=== PATIENT | female | born 1960 | race Caucasian/White ===

== ENCOUNTER 2019-07-26 13:07 | Outpatient (CLI) | payer OTHER, SELFPAY ==
--- NOTE | ~2019-07-26 | MM_ITS ---
EXAMINATION: MM screen george LT diag george RT HISTORY: Screening left mammogram and diagnostic right mammogram, history of right breast cancer TECHNIQUE: Craniocaudal and mediolateral oblique 3-D tomosynthesis images of the breasts were perform ed and synthetic 2-D images were generated. Mediolateral view of the right breast was also obtained. CAD analysis was submitted and interpreted. COMPARISON: 07/04/2017, 06/18/2017, 02/10/2016, 01/23/2016, 01/16/2016 BREAST PARENCHYMAL COMPOSITION: There are scattered areas of fibroglandular density. FINDINGS: Right breast: There are changes of interval lumpectomy in the right breast. No suspicious mass, calci fication, or architectural distortion are identified. Left breast: There is architectural distortion and a possible mass in the middle third of the inner b reast 7.5 cm from the nipple at the site of previously biopsied calcifications. IMPRESSION: 1. Lumpectomy changes of the right breast without suspicious findings. Routine follow-up is recommend ed. 2. Architectural distortion and possible mass of the left breast. Additional mammographic views and p ossible left breast ultrasound are recommended. BI-RADS Category 0: Incomplete: Needs additional imaging evaluation. Reviewed, dictated and finalized at location A. DREN'S SERVICE SUPERVISOR IMPRESSION: 1. Lumpectomy changes of the right breast without suspicious findings. Routine follow-up is recommended. 2. Architectural distortion and possible mass of the left breast. Additional ma mmographic views and possible left breast ultrasound are recommended. BI-RADS Category 0: Incomplete: Needs additional imaging evaluation.
== END 2019-07-26 13:08 | disposition home or self-care (01) ==
PROVIDERS: PCP Family Medicine; Visit Provider Internal Medicine Hematology & Oncology
DX: C50.211 Malignant neoplasm of upper-inner quadrant of right female breast (principal); Z17.0 Estrogen receptor positive status [ER+]; R92.8 Other abnormal and inconclusive findings on diagnostic imaging of breast
CPT/HCPCS: 77065; 77067

== ENCOUNTER 2019-07-31 08:33 | Outpatient (CLI) | payer OTHER, SELFPAY ==
[2019-07-31 09:02] LABS: Basophils Absolute Auto 0.1 K/mm3 (0.0-0.1); Basophils Percent Auto 1.5 % (0.2-1.2); Eosinophils Absolute Auto 0.2 K/mm3 (0-0.3); Hemoglobin 13.5 g/dL (12.0-15.0); Immature Granulocyte Absolute 0.01 K/mm3 (0.00-0.031); Immature Granulocyte Percent A 0.2 % (0-0.5); Lymphocytes Absolute Auto 1.12 K/mm3 (0.9-3.2); Lymphocytes Percent Auto 24.5 % (18.3-44.2); Mean Corpuscular HGB Conc 35.5 g/dl (32-36); Mean Corpuscular Hemoglobin 29.9 pg (26-34); Mean Corpuscular Volume 84.3 fl (80-100); Mean Platelet Volume 10.2 fl (7.4-10.4); Monocytes Absolute Auto 0.5 K/mm3 (0.1-0.6); Monocytes Percent Auto 10.5 % (2.6-8.5); Neutrophils Absolute Auto 2.7 K/mm3 (1.3-6.7); Neutrophils Percent Auto 58.3 % (45.5-73.1); Platelet Count Result 235 k/mm3 (150-375); Red Blood Count 4.51 M/mm3 (4.2-5.4); Red Cell Distribution Width 11.8 % (11.5-14.5); White Blood Count 4.6 K/mm3 (4.5-10.0)
[2019-07-31 09:04] LABS: Blood Urea Nitrogen 17 mg/dL (8-26); Carbon Dioxide 22 mmol/L (22-30); Chloride 107 mmol/L (98-109); Estimated Glomerular Filt Rate > 60; Glucose 170 mg/dL (70-105); Potassium 4.3 mmol/L (3.5-4.9); Sodium 141 mmol/L (138-146)
[2019-07-31 12:14] LABS: Alanine Aminotransferase 53 U/L (4-35); Albumin Level 4.3 g/dL (3.5-5.1); Alkaline Phosphatase 56 U/L (38-126); Aspartate Amino Transferase 34 U/L (14-36); Bilirubin,Total 0.5 mg/dL (0.2-1.3); Blood Urea Nitrogen 18 mg/dL (7-17); Calcium 9.6 mg/dL (8.4-10.2); Carbon Dioxide 22 mmol/L (22-30); Chloride 104 mmol/L (98-107); Estimated Glomerular Filt Rate > 60; Glucose 164 mg/dL (65-105); Potassium 4.6 mmol/L (3.4-5.0); Sodium 140 mmol/L (137-145)
[2019-08-03 05:25] LABS: CA 27.29 18 U/mL (<38)
== END 2019-07-31 08:34 | disposition home or self-care (01) ==
LOC: ANHLAB 08:39
PROVIDERS: PCP Family Medicine; Visit Provider Internal Medicine Hematology & Oncology
DX: C50.211 Malignant neoplasm of upper-inner quadrant of right female breast (principal); Z17.0 Estrogen receptor positive status [ER+]
CPT/HCPCS: 36415; 80048; 80053; 85025; 86300

== ENCOUNTER 2019-08-02 14:26 | Outpatient (CLI) | payer OTHER, SELFPAY ==
--- NOTE | ~2019-08-02 | MMUS_ITS ---
EXAMINATION: MM diagnostic mammo unilat LT, US breast LT limited HISTORY: Architectural distortion and possible mass in middle third of inner left breast 7.5 cm from nipple at site of previously biopsied calcifications, reported on 07/26/2019 bilateral digital screenin g mammogram examination TECHNIQUE: Additional 3-D tomosynthesis images of the left breast were performed and synthetic 2-D im ages were generated. CAD analysis was submitted and interpreted. High resolution targeted left breast ultrasound was performed. COMPARISON: None FINDINGS: MAMMOGRAPHIC FINDINGS: There is a focal small spiculated opacity at the upper inner quadrant of the left breast at mid depth at the site of a biopsy marker. Sonographic correlation was performed. ULTRASOUND: At 10:00 6 cm from the nipple at the area of mammographic finding is an ill-defined hypoechoic irregu lar area with posterior shadowing, with internal vascularity. This area measures up to 8.3 x 11 mm x 11 mm dimension. This is suspicious for carcinoma of the breast. Ultrasound-guided biopsy is recommen ded. IMPRESSION: 1. 11 mm irregular hypoechoic shadowing mass at 10:00 6 cm from the nipple, suspicious for malignancy 2. Ultrasound-guided biopsy of 10:00 lesion 6 cm from nipple is recommended. BI-RADS category 4, suspicious findings. Dr. Cai telephoned the findings and ultrasound guided biopsy recommendation to Ronda Smith on 08/02/19 20 at 1408 hours. Reviewed, dictated and finalized at location A. RAPHY FACULTY MEMBER IMPRESSION: 1. 11 mm irregular hypoechoic shadowing mass at 10:00 6 cm from the nipple, diego picious for malignancy 2. Ultrasound-guided biopsy of 10:00 lesion 6 cm from nipple is recommended. BI-RADS category 4, suspicious findings. Dr. Cai telephoned the findings and ultrasound guided biopsy recommendation to Ronda Smith on 08/02/2019 at 1408 hours.
== END 2019-08-02 14:27 | disposition home or self-care (01) ==
PROVIDERS: Visit Provider Internal Medicine Hematology & Oncology
DX: R92.8 Other abnormal and inconclusive findings on diagnostic imaging of breast (principal)
CPT/HCPCS: 76642; 77065

== ENCOUNTER 2019-09-25 13:47 | Inpatient (IN) | payer OTHER, SELFPAY ==
--- NOTE | ~2019-09-25 | XR_ITS ---
EXAMINATION: XR chest 1V portable EXAM DATE: 09/25/2019 14:49 INDICATION: Cough and shortness of breath. TECHNIQUE: Portable AP frontal chest x-ray was obtained. Comparison is made to prior examination from 01/05/2018. FINDINGS: Some chronic left lower lobe opacities which were present on prior study probably atelectas is or scarring. Interval development of right basilar nonspecific atelectasis or infection. Clinical correlation. Cardiomediastinal silhouette is normal. There is no pneumothorax suspected. Possible sma ll left pleural effusion. There are no osseous abnormalities identified. IMPRESSION: 1. Development of right basilar ill-defined atelectasis or infection. 2. Persistent retrocardiac opacity. 3. Possible small left pleural effusion. Reviewed, dictated and finalized at location B.
--- NOTE | ~2019-09-25 | XR_ITS ---
EXAMINATION: XR chest 1V portable DATE: 09/30/2019 06:34 INDICATION: COVID-19 pneumonia. TECHNIQUE: A single frontal view of the chest was obtained. COMPARISON: Chest single view 09/28/2019, chest CT 09/27/2019 FINDINGS: The lung volumes are small. There are airspace opacities in all lung zones with a basilar p redominance. No pleural effusion or pneumothorax. The heart size is normal. There are prominent parac ardial fat pads. IMPRESSION: 1. Small lung volumes with diffuse lung disease with a basilar predominance with interval improvement , likely a combination of pneumonia and atelectasis. Reviewed, dictated and finalized at location A. IMPRESSION: 1. Small lung volumes with diffuse lung disease with a basilar predominance wit h interval improvement, likely a combination of pneumonia and atelectasis.
--- NOTE | ~2019-09-25 | XR_ITS ---
EXAMINATION: XR chest 1V portable DATE: 09/28/2019 06:31 INDICATION: Multifocal pneumonia. TECHNIQUE: A single frontal view of the chest was obtained. COMPARISON: Chest single view 09/25/2019 FINDINGS: There are airspace opacities in the mid and lower lung zones. No pleural effusion or pneumo thorax. There is a prominent left paracardial fat pad. The heart size is normal. IMPRESSION: 1. Worsened airspace opacities in the mid and lower lung zones, consistent with pneumonia. Reviewed, dictated and finalized at location A.
--- NOTE | ~2019-09-25 | CT_ITS ---
EXAMINATION: CTA chest PE protocol DATE: 09/27/2019 08:17 INDICATION: Acute respiratory failure. Pneumonia. Sepsis. TECHNIQUE: Computed tomography angiography (CTA) of the chest was performed with 100 mL Omnipaque-350 intravenous contrast timed to evaluate the pulmonary arteries. Coronal maximum intensity projection 3D-reconstructions were created by the technologist. Automated exposure control and iterative reconst ruction technique were employed. The dose-length product was 363.55 mGy-cm. COMPARISON: Chest CT 12/25/2018 FINDINGS: The lung volumes are small. There are patchy groundglass opacities involving all lobes. The re are patchy airspace opacities in the inferior lungs. There is atelectasis at the lung bases bilate rally. No pleural effusion. There are nodules in the thyroid measuring up to 13 mm, likely not clinic ally significant. The heart size is normal. There is mild mediastinal and bilateral hilar lymphadenop athy. There is no pulmonary embolus. There is diffuse hepatic steatosis. There is a small sliding hia tino hernia. There is mild chronic anterior wedging of multiple thoracic vertebral bodies. There is mo derate thoracic spondylosis. IMPRESSION: 1. No pulmonary embolus. 2. Multifocal lung disease, likely atypical pneumonia such as COVID-19. 3. Mild mediastinal and bilateral hilar lymphadenopathy, likely reactive. 4. Small sliding hiatal hernia. Reviewed, dictated and finalized at location A.
--- NOTE | 2019-09-25 13:59 | ED.SOB ---
HPI - SOB/Dyspnea General Chief Complaint: Shortness of Breath/Dyspnea <JAKUB Medellin Last Filed: 09/25/19 15:34> Stated Complaint: cough, fever, sob <JAKUB Medellin Last Filed: 09/25/19 15:34> Time Seen by Provider: 09/25/19 13:56 <JAKUB Medellin Last Filed: 09/25/19 15:34> Source: patient <JAKUB Medellin Last Filed: 09/25/19 15:34> Mode of arrival: ambulatory <JAKUB Medellin Last Filed: 09/25/19 15:34> Limitations: no limitations <JAKUB Medellin Last Filed: 09/25/19 15:34> History of Present Illness HPI Narrative: Patient is a 59 y/o female who presents to the ED with c/o increasing SOB that started Tuesday (3 days ago). Pt reports a fever, dry cough, nausea, diarrhea, KOENIG, body aches, and a sore throat. Pt denies having blood in her stool or CP. She states that she was exposed to a coworker that she was in close contact with, who was tested positive for COVID-19. She has been monitoring her O2 Sat and it has been staying in the high 80's and low 90's at home. Pt has a history of breast CA, HTN, HLD, and DM. <JAKUB Medellin Last Filed: 09/25/19 15:34> MD elicited complaint: shortness of breath <JAKUB Medellin Last Filed: 09/25/19 15:34> Onset (ago): day(s) (3) <JAKUB Medellin Last Filed: 09/25/19 15:34> Context: other (exposed to coworker who tested positive for COVID-19) <JAKUB Medellin Last Filed: 09/25/19 15:34> Timing: progressively worsening <JAKUB Medellin Last Filed: 09/25/19 15:34> Associated symptoms: fever, cough and other (body aches, nausea, KOENIG, sore throat, diarrhea) <JAKUB Medellin Last Filed: 09/25/19 15:34> Related Data Home Medications: Home Medications Medication Instructions Recorded Confirmed fenofibrate nanocrystallized 48 mg PO HS 04/10/19 04/10/19 [Tricor] insulin detemir U-100 [Levemir 75 unit SUBCUT HS 04/10/19 04/10/19 U-100 Insulin] liraglutide [Victoza 2-Rafa] 1.2 mg SUBCUT DAILY 04/10/19 04/10/19 multivitamin 1 tablet PO DAILY 04/10/19 04/10/19 naproxen 500 mg PO BID 04/10/19 04/10/19 anastrozole 1 mg PO DAILY 04/27/19 04/27/19 alprazolam 09/25/19 atorvastatin 09/25/19 insulin aspart U-100 [Novolog unit SUBCUT 09/25/19 Flexpen U-100 Insulin] insulin detemir U-100 [Levemir unit SUBCUT 09/25/19 FlexTouch U-100 Insuln] liraglutide [Victoza 2-Rafa] mg SUBCUT 09/25/19 losartan 09/25/19 <Jo Cronin PA-C - Last Filed: 09/25/19 15:34> Allergies/Adverse Reactions: Allergies Allergy/AdvReac Type Severity Reaction Status Date / Time gold Au 198 Allergy Severe RASH,EYE Verified 09/25/19 13:58 SWELLING pioglitazone Allergy Unknown Unknown Verified 09/25/19 13:58 codeine AdvReac Intermediate Nausea Verified 09/25/19 13:58 <Jo Cronin PA-C - Last Filed: 09/25/19 15:34> Review of Systems Review of Systems: All systems reviewed & are unremarkable except as noted in HPI and below <JAKUB Medellin Last Filed: 09/25/19 15:34> Constitutional: Constitutional: Reports body ache(s) and Reports fever(s) <JAKUB Medellin Last Filed: 09/25/19 15:34> ENT: Reports sore throat <JAKUB Medellin Last Filed: 09/25/19 15:34> Cardiovascular: Cardiovascular: Denies chest pain <Jo Cronin PA-C - Last Filed: 09/25/19 15:34> Respiratory: Respiratory: Reports cough (dry) and Reports dyspnea <Jo Cronin PA-C - Last Filed: 09/25/19 15:34> Gastrointestinal: Gastrointestinal: Denies hematochezia, Reports diarrhea and Reports nausea <Jo Cronin PA-C - Last Filed: 09/25/19 15:34> Neurologic: Reports headache(s) <Jo Cronin PA-C - Last Filed: 09/25/19 15:34> [facility] Past Medical History Medical History: Medical History (Updated 09/25/19 @ 15:34 by Jo Cronin PA-C) Breast cancer, right Diverticulosis of intestine, part unspe
[2019-09-25 14:09] VITALS: BP 115/54; PULSE 107; PULSE 99; RESP 22; TEMP 37.7; O2SAT 91; O2SAT 96
--- NOTE | 2019-09-25 14:16 | ECG_ITS ---
Measurements Intervals [place] Rate: 104 P: 161 DC: 138 QRS: 187 QRSD: 93 T: 181 QT: 337 QTc: 444 Interpretive Statements SINUS TACHYCARDIA ARM LEADS REVERSED INFERIOR INFARCT, AGE INDETERMINATE BASELINE ARTIFACT- I, III, AVL ABNORMAL ECG Electronically Signed On 09-25-2019 16:06:34 CDT by Scott Combs D.O.
[2019-09-25 14:27] LABS: Basophils Percent Auto 0.3 % (0.2-1.2); Hematocrit 38.4 % (37.0-47.0); Hemoglobin 13.2 g/dL (12.0-15.0); Immature Granulocyte Absolute 0.01 K/mm3 (0.00-0.031); Immature Granulocyte Percent A 0.3 % (0-0.5); Lymphocytes Percent Auto 17.8 % (18.3-44.2); Mean Corpuscular HGB Conc 34.4 g/dl (32-36); Mean Corpuscular Hemoglobin 29.5 pg (26-34); Mean Corpuscular Volume 85.9 fl (80-100); Mean Platelet Volume 10.6 fl (7.4-10.4); Monocytes Absolute Auto 0.3 K/mm3 (0.1-0.6); Monocytes Percent Auto 8.1 % (2.6-8.5); Neutrophils Absolute Auto 2.9 K/mm3 (1.3-6.7); Neutrophils Percent Auto 73.5 % (45.5-73.1); Platelet Count Result 157 k/mm3 (150-375); Red Blood Count 4.47 M/mm3 (4.2-5.4); White Blood Count 3.9 K/mm3 (4.5-10.0)
[2019-09-25 14:29] LABS: Alveolar/Arterial O2 Gradient 37.5 mmHg; Base Excess ABG 1.6 mEq/l (+/-2.0); Carboxyhemoglobin 0.4 % THb (0-2.0); Fractional Inspired Oxygen 21 %; HCO3 ABG 24.4 mEq/l (22.0-26.0); Methemoglobin ABG 0.2 %THb (0-1.5); Oxygen Content ABG 17.7 %vol (16.0-22.0); Oxygen Saturation ABG 95.9 % (95.0-100.0); Oxyhemoglobin 94.3 % THb (90.0-100.0); PCO2 ABG 32.8 mmHg (35.0-45.0); PO2 FiO2 Ratio Arterial Blood 3.48 %; Reduced Hemoglobin 5.1 %THb (0-5.0); Total Hemoglobin 13.3 g/dL (12.0-18.0); pH ABG 7.489 (7.350-7.450)
[2019-09-25 14:30] LABS: Device ROOM AIR; Modified Allen's Test Pass; Site Drawn RIGHT RADIAL
[2019-09-25 14:40] LABS: Lactic Acid Reflex 1.2 mmol/L (0.7-2.1)
[2019-09-25 14:41] LABS: Alanine Aminotransferase 48 U/L (4-35); Albumin Level 4.2 g/dL (3.5-5.1); Alkaline Phosphatase 56 U/L (38-126); Aspartate Amino Transferase 43 U/L (14-36); Bilirubin,Total 0.4 mg/dL (0.2-1.3); Blood Urea Nitrogen 11 mg/dL (7-17); CRP 3.9 mg/dL (<1.0); Calcium 8.9 mg/dL (8.4-10.2); Carbon Dioxide 25 mmol/L (22-30); Chloride 101 mmol/L (98-107); Estimated CRCL calculation 78 ml/min; Estimated Glomerular Filt Rate > 60; Glucose 187 mg/dL (65-105); Lactate Dehydrogenase 503 U/L (313-618); Potassium 3.8 mmol/L (3.4-5.0); Sodium 136 mmol/L (137-145)
[2019-09-25] MEDS: ONDANSETRON INJ 4 MG/2 ML VIAL IV PUSH (14:49)
[2019-09-25] MEDS: SODIUM CHLORIDE 0.9% IV 500 ML 999 ML IV CONT (14:49)
[2019-09-25 15:00] LABS: Prothrombin Time 12.8 Seconds (11.1-14.7)
[2019-09-25 15:01] LABS: Partial Thromboplastin Time 32.1 SECONDS (22.3-36.8)
[2019-09-25 15:12] LABS: NT Pro B Type Natriuretic Pept 62 PG/ML (5-100)
[2019-09-25 15:31] VITALS: BP 118/70; PULSE 86; O2SAT 97
[2019-09-25 16:33] VITALS: BMI 32.2
[2019-09-25 17:00] VITALS: BP 126/69; PULSE 92; RESP 16; O2SAT 94
--- NOTE | 2019-09-25 17:40 | PC.NURSE ---
Accidently put new pt assessment under 2000, instead of 1700.
[2019-09-25 18:01] LABS: Glucose Point of Care 214 (65-105)
[2019-09-25 20:00] VITALS: BP 122/61; PULSE 104; PULSE 115; RESP 16; TEMP 38.4; O2SAT 92; O2SAT 94
[2019-09-25 21:17] VITALS: O2SAT 92
--- NOTE | 2019-09-25 21:45 | PM.IMHP ---
H&P: HPI History of Present Illness Chief complaint: Shortness of breath and fever. Narrative: Rosemary Yun is a 59-year-old female with history of breast cancer on Arimidex, hypertension, dyslipidemia, and insulin-dependent type 2 diabetes mellitus who presented to the emergency department earlier this afternoon from home for evaluation of shortness of breath and fever. She abruptly developed flu-like symptoms on Tuesday, to include dry cough, shortness of breath, sore throat, headache, body aches, nausea, and mild diarrhea. Her symptoms have gotten worse each day, and she has been running a temperature up to 101?. She works at a local [employer], and was told not quite 1.5 weeks ago that a co-worker, whom she is in close contact with, tested positive for COVID-19. The patient has been working at home since that time, in quarantine, and just developed symptoms 3 days ago as above. The only complaint that she has at this time is of tailbone pain due to lying in bed. She denies chest pain, pleuritic pain, palpitations, vomiting, anosmia, and dysgeusia. Review of Systems Review of Systems: Narrative: Twelve systems were reviewed with pertinent positives and negatives as per HPI. She believes her diabetes is fairly well controlled, better than what it typically is, with a recent hemoglobin A1c of 8.0%. Glucose has been running a bit higher since she has been feeling ill. Denies blurry vision, polydipsia, and polyuria. Except as documented, all other systems were reviewed and are negative. 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 Status post partial mastectomy with sentinel lymph node biopsy per Dr. Mendoza. She completed radiation treatment from 02/05/2019 to 03/05/[address] Aldridge. She is now on Arimidex and follows with Dr. Garza. Diverticulosis of intestine, part unspecified, without perforation or abscess with bleeding Dyslipidemia Essential (primary) hypertension History of branchial cleft cyst Long-term current use of insulin for diabetes mellitus Hemoglobin A1c was 8.0% in June 2019. XAVIER on CPAP Osteopenia Primary osteoarthritis, right hand Surgical History Surgical History (Updated 09/25/19 @ 22:53 by Dana Mariee PA-C) History of dilation and curettage History of hammertoe correction History of hysterectomy History of partial mastectomy of right breast With sentinel lymph node biopsy, negative margins. History of tonsillectomy History of tubal ligation Family History Family History Mother Hypertension Father Cerebrovascular accident Family history of malignant neoplasm Social History Social History (Updated 09/25/19 @ 22:54 by Dana Mariee PA-C) Social History: The patient is and lives with her in [place], [place]. She works at a local [employer]. She designates her , Damon, as her surrogate decision maker and she wishes to be a full code. She is a lifelong nonsmoker and denies alcohol and drug abuse. Spiritual care concerns: Yes (asad visit) Agree to blood products: Yes Meds Home Medications and Allergies Home Medications Medication Instructions Recorded Confirmed Type fenofibrate nanocrystallized 48 mg PO HS 04/10/19 09/25/19 History [Tricor] insulin detemir U-100 [Levemir 75 unit SUBCUT HS 04/10/19 09/25/19 History U-100 Insulin] liraglutide [Victoza 2-Rafa] 1.2 mg SUBCUT DAILY 04/10/19 09/25/19 History multivitamin 1 tablet PO DAILY 04/10/19 09/25/19 History naproxen 500 mg PO BID PRN 04/10/19 09/25/19 History anastrozole 1 mg PO DAILY 04/27/19 09/25/19 History losartan 25 mg tablet 50 mg PO DAILY #180 tablet 08/01/19 09/25/19 Rx atorvastatin 10 mg tablet 10 mg PO
[2019-09-25] MEDS: ANASTROZOLE (*CHEMO) 1 MG TABLET PO (23:31)
[2019-09-25] MEDS: ATORVASTATIN 10 MG TABLET PO (23:31)
[2019-09-25] MEDS: FENOFIBRATE,MICRONIZED 48 MG TABLET PO (23:31)
[2019-09-25] MEDS: ACETAMINOPHEN 325 MG TABLET 650 MG PO (23:31)
[2019-09-25] MEDS: INSULIN DETEMIR 100 UNITS/ML 75 UNITS SUB-Q (23:37)
[2019-09-26] VITALS (12 sets, daily range): BP systolic 100–116; BP diastolic 49–68; PULSE 87–101; RESP 16–20; TEMP 37.3–38.3; O2SAT 89–95
[2019-09-26 00:12] LABS: Glucose Point of Care 231 (65-105)
[2019-09-26] MEDS: ALBUTEROL SULFATE (*SP) AEROSOL 1 PUFF 4 PUFF INHALATION ×4 (02:56→21:30)
[2019-09-26 05:59] LABS: Basophils Percent Auto 0.7 % (0.2-1.2); Hematocrit 34.2 % (37.0-47.0); Hemoglobin 11.7 g/dL (12.0-15.0); Immature Granulocyte Absolute 0.02 K/mm3 (0.00-0.031); Immature Granulocyte Percent A 0.7 % (0-0.5); Lymphocytes Absolute Auto 0.76 K/mm3 (0.9-3.2); Lymphocytes Percent Auto 26.6 % (18.3-44.2); Mean Corpuscular HGB Conc 34.2 g/dl (32-36); Mean Corpuscular Hemoglobin 29.7 pg (26-34); Mean Corpuscular Volume 86.8 fl (80-100); Mean Platelet Volume 10.5 fl (7.4-10.4); Monocytes Absolute Auto 0.2 K/mm3 (0.1-0.6); Monocytes Percent Auto 7.7 % (2.6-8.5); Neutrophils Absolute Auto 1.8 K/mm3 (1.3-6.7); Neutrophils Percent Auto 64.3 % (45.5-73.1); Platelet Count Result 152 k/mm3 (150-375); Red Blood Count 3.94 M/mm3 (4.2-5.4); Red Cell Distribution Width 11.9 % (11.5-14.5); White Blood Count 2.9 K/mm3 (4.5-10.0)
[2019-09-26 06:18] LABS: Alanine Aminotransferase 41 U/L (4-35); Albumin Level 3.5 g/dL (3.5-5.1); Alkaline Phosphatase 46 U/L (38-126); Aspartate Amino Transferase 40 U/L (14-36); Bilirubin,Total 0.3 mg/dL (0.2-1.3); Blood Urea Nitrogen 11 mg/dL (7-17); Calcium 8.3 mg/dL (8.4-10.2); Carbon Dioxide 27 mmol/L (22-30); Chloride 103 mmol/L (98-107); Estimated CRCL calculation 85 ml/min; Estimated Glomerular Filt Rate > 60; Glucose 178 mg/dL (65-105); Lactate Dehydrogenase 498 U/L (313-618); Potassium 3.7 mmol/L (3.4-5.0); Sodium 136 mmol/L (137-145)
--- NOTE | 2019-09-26 07:15 | PC.NURSE ---
This patient, Rosemary Yun, was admitted to [facility] Room 325-01 on 09/24 at 1617. Patient/family oriented to hospital policies and general routines including ID bracelet, bed and alarms, visiting hours, pain management, procedures, bathroom and other care routines, personal items, smoking policy, room service/diet, and visiting hours. Valuables list has been completed. Information on how to activate the Rapid Response Team has been discussed. Patient/Family are encouraged to report perceived risks to care and to ask questions if they do not understand what they are told or what they should do.
[2019-09-26 08:07] LABS: Glucose Point of Care 157 (65-105)
[2019-09-26] MEDS: INSULIN ASPART (*BKC) 100 UNITS/ML 10 UNITS SUB-Q ×3 (08:22→17:33)
[2019-09-26] MEDS: MULTIVITAMINS THERAPEUTIC TAB (*BKC) 1 TABLET PO (08:25)
[2019-09-26] MEDS: LOSARTAN POTASSIUM 25 MG TABLET 50 MG PO (08:25)
[2019-09-26] MEDS: ACETAMINOPHEN 325 MG TABLET 650 MG PO ×3 (08:28→21:30)
[2019-09-26 12:02] LABS: Glucose Point of Care 182 (65-105)
--- NOTE | 2019-09-26 12:08 | PM.IMPN ---
Progress Note: A&P Assessment and Plan (1) Pneumonia: Qualifiers: Laterality: right Lung location: lower lobe of lung Pneumonia type: due to unspecified organism Qualified Code(s): J18.9 - Pneumonia, unspecified organism Code(s): J18.9 - Pneumonia, unspecified organism Status: Acute Assessment and Plan: Continue azithromycin and rocephin (day 2), albuterol MDI. Sputum culture if she can produce one. Pneumococcal and legionella urinary antigens pending. COVID-19 pending. (2) Acute respiratory failure with hypoxia: Code(s): J96.01 - Acute respiratory failure with hypoxia Status: Acute Assessment and Plan: Currently on 4L nasal cannula. Continue continuous pulse oximetry. (3) Sepsis: Qualifiers: Sepsis type: sepsis due to unspecified organism Sepsis acute organ dysfunction status: unspecified Qualified Code(s): A41.9 - Sepsis, unspecified organism Code(s): A41.9 - Sepsis, unspecified organism Status: Acute Assessment and Plan: Present on admission with tachycardia and fever in the setting of infection. Suspected source is respiratory. Lactic acid is within normal limits. Continue to monitor vital signs and urine output. Blood cultures pending with no growth to date. (4) Long-term current use of insulin for diabetes mellitus: Code(s): Z79.4 - intermission coordinator (current) use of insulin; E11.9 - Type 2 diabetes mellitus without complications Status: Acute Assessment and Plan: Hemoglobin A1c several months ago was 8.0%. Blood sugars are stable today. Continue basal insulin and mealtime bolus insulin. Home victoza nonformulary and held. Monitor with accu-cheks and adjust treatment as needed. (5) XAVIER on CPAP: Code(s): G47.33 - Obstructive sleep apnea (adult) (pediatric); Z99.89 - Dependence on other enabling machines and devices Status: Acute Assessment and Plan: Patient unable to use CPAP per hospital policy as she is not in negative pressure room and is a person under investigation for COVID-19. (6) Essential (primary) hypertension: Code(s): I10 - Essential (primary) hypertension Status: Acute Assessment and Plan: Continue home losartan and monitor BP. Stable. Subjective Date/time seen: 09/26/19 12:00 Interval history: Ms. Yun is a 59yo F admitted for acute respiratory failure. She continues to feel short of breath today but reports feeling a little improved. She denies any chest pain. She reports a nonproductive cough that continues today. She is tolerating oral intake without nausea or vomiting. Notes nonbloody diarrhea this AM. Review of Systems Review of Systems: Narrative: Twelve systems were reviewed with pertinent positives and negatives as per HPI. Exam Narrative: Exam Narrative: General: Female resting supine in bed in no acute distress. HEENT: Normocephalic, EOMI, oral mucosa moist. Cardiovascular: Rate and rhythm are regular. Respiratory: Decreased breath sounds throughout. A bit short of breath between sentences in conversation. Tolerating 4L O2 nasal cannula. Abdomen: Soft, non-tender, non-distended, bowel sounds present. Extremities: Peripheral pulses intact. No edema or clubbing. Neuro: No focal neurological deficits. Speech is clear. Objective Data Vital Signs Vital Signs: Last Vital Signs Temp 100.0 F H 09/26/19 16:00 Pulse 101 H 09/26/19 17:54 Resp 20 09/26/19 16:00 BP 112/65 09/26/19 16:00 Pulse Ox 94 09/26/19 16:00 Intake/Output Intake/Output: Intake & Output 09/23/19 09/24/19 09/25/19 09/26/19 23:59 23:59 23:59 23:59 Intake Total 1020 910 Output Total 0 Balance 1020 910 Meds/Results Medications: Active Medications Generic Name Dose Ro
--- NOTE | 2019-09-26 12:23 | PC.NURSE ---
Pt has an order to collect a sputum sample, however pt does not have a productive cough at this time. Pt's cough remains dry.
[2019-09-26 16:19] LABS: Glucose Point of Care 188 (65-105)
[2019-09-26] MEDS: ATORVASTATIN 10 MG TABLET PO (21:30)
[2019-09-26] MEDS: INSULIN DETEMIR 100 UNITS/ML 75 UNITS SUB-Q (21:30)
[2019-09-26] MEDS: FENOFIBRATE,MICRONIZED 48 MG TABLET PO (21:30)
[2019-09-26 21:50] LABS: Glucose Point of Care 223 (65-105)
[2019-09-27] VITALS (14 sets, daily range): BP systolic 102–130; BP diastolic 53–69; PULSE 82–100; RESP 16–20; TEMP 36.4–37.9; O2SAT 90–92
[2019-09-27] MEDS: ALBUTEROL SULFATE (*SP) AEROSOL 1 PUFF 4 PUFF INHALATION ×4 (02:44→20:19)
[2019-09-27 06:08] LABS: Basophils Percent Auto 0.3 % (0.2-1.2); Hematocrit 33.6 % (37.0-47.0); Hemoglobin 11.4 g/dL (12.0-15.0); Immature Granulocyte Absolute 0.02 K/mm3 (0.00-0.031); Immature Granulocyte Percent A 0.5 % (0-0.5); Lymphocytes Absolute Auto 0.61 K/mm3 (0.9-3.2); Lymphocytes Percent Auto 16.2 % (18.3-44.2); Mean Corpuscular HGB Conc 33.9 g/dl (32-36); Mean Corpuscular Hemoglobin 29.2 pg (26-34); Mean Corpuscular Volume 85.9 fl (80-100); Mean Platelet Volume 9.9 fl (7.4-10.4); Monocytes Absolute Auto 0.2 K/mm3 (0.1-0.6); Monocytes Percent Auto 6.1 % (2.6-8.5); Neutrophils Absolute Auto 2.9 K/mm3 (1.3-6.7); Neutrophils Percent Auto 76.9 % (45.5-73.1); Platelet Count Result 168 k/mm3 (150-375); Red Blood Count 3.91 M/mm3 (4.2-5.4); White Blood Count 3.8 K/mm3 (4.5-10.0)
[2019-09-27 06:26] LABS: Alanine Aminotransferase 37 U/L (4-35); Albumin Level 3.4 g/dL (3.5-5.1); Alkaline Phosphatase 42 U/L (38-126); Aspartate Amino Transferase 41 U/L (14-36); Bilirubin,Total 0.4 mg/dL (0.2-1.3); Blood Urea Nitrogen 12 mg/dL (7-17); Calcium 8.4 mg/dL (8.4-10.2); Carbon Dioxide 28 mmol/L (22-30); Chloride 102 mmol/L (98-107); Estimated CRCL calculation 85 ml/min; Estimated Glomerular Filt Rate > 60; Glucose 139 mg/dL (65-105); Magnesium 1.7 mg/dL (1.6-2.3); Phosphorus 3.7 mg/dL (2.5-4.5); Potassium 3.6 mmol/L (3.4-5.0); Sodium 136 mmol/L (137-145)
[2019-09-27 09:01] LABS: Glucose Point of Care 135 (65-105)
[2019-09-27] MEDS: MULTIVITAMINS THERAPEUTIC TAB (*BKC) 1 TABLET PO (09:13)
[2019-09-27] MEDS: LOSARTAN POTASSIUM 25 MG TABLET 50 MG PO (09:13)
--- NOTE | 2019-09-27 09:14 | PM.IMPN ---
Progress Note: A&P Assessment and Plan (1) Pneumonia: Qualifiers: Laterality: right Lung location: lower lobe of lung Pneumonia type: due to unspecified organism Qualified Code(s): J18.9 - Pneumonia, unspecified organism Code(s): J18.9 - Pneumonia, unspecified organism Status: Acute Assessment and Plan: Continue azithromycin and rocephin (day 3), albuterol MDI. Continue supportive care with Tylenol for fevers and supplemental O2. Sputum culture if she can produce one. Pneumococcal and legionella urinary antigens pending. CT chest this AM demonstrates multifocal lung disease with patchy groundglass opacities, consistent with COVID pattern. COVID-19 testing pending this morning. (2) Acute respiratory failure with hypoxia: Code(s): J96.01 - Acute respiratory failure with hypoxia Status: Acute Assessment and Plan: Currently up to 5L nasal cannula. Monitor with continuous pulse oximetry. (3) Sepsis: Qualifiers: Sepsis acute organ dysfunction status: unspecified Sepsis type: sepsis due to unspecified organism Qualified Code(s): A41.9 - Sepsis, unspecified organism Code(s): A41.9 - Sepsis, unspecified organism Status: Acute Assessment and Plan: Present on admission with tachycardia and fever in the setting of infection. Suspected source is respiratory. Lactic acid is within normal limits. Continue to monitor vital signs and urine output. T max 101 F last night. Blood cultures pending with no growth to date. (4) Long-term current use of insulin for diabetes mellitus: Code(s): Z79.4 - detention (current) use of insulin; E11.9 - Type 2 diabetes mellitus without complications Status: Acute Assessment and Plan: Hemoglobin A1c several months ago was 8.0%. Blood sugars are stable today. Continue basal insulin and mealtime bolus insulin. Home victoza nonformulary and held. Monitor with accu-cheks and adjust treatment as needed. (5) XAVIER on CPAP: Code(s): G47.33 - Obstructive sleep apnea (adult) (pediatric); Z99.89 - Dependence on other enabling machines and devices Status: Acute Assessment and Plan: Patient unable to use CPAP per hospital policy as she is not in negative pressure room and is a person under investigation for COVID-19. (6) Essential (primary) hypertension: Code(s): I10 - Essential (primary) hypertension Status: Acute Assessment and Plan: Stable. Continue home Losartan and monitor BP. Subjective Date/time seen: 09/27/19 09:00 Interval history: Ms. Yun is a 59yo F admitted for acute respiratory failure and pneumonia. She reports her shortness of breath feels about the same as yesterday. She reports some anterior chest wall tenderness with coughing. Her cough is about the same as yesterday and is still nonproductive. She had nonbloody diarrhea yesterday, no diarrhea yet today. She has tolerated some breakfast without nausea or vomiting. Review of Systems Review of Systems: Narrative: Twelve systems were reviewed with pertinent positives and negatives as per HPI. Exam Narrative: Exam Narrative: General: Female resting sitting up on edge of bed eating breakfast in no acute distress. HEENT: Normocephalic, EOMI, oral mucosa moist. Cardiovascular: Rate and rhythm are regular. Respiratory: Decreased breath sounds throughout. A bit short of breath between sentences in conversation. Tolerating 4L O2 nasal cannula. Clinically no change from yesterday. Abdomen: Soft, non-tender, non-distended, bowel sounds present. Extremities: Peripheral pulses intact. No edema, erythema, cyanosis or clubbing. Neuro: No focal neurological deficits. Speech is clear. Objective Data Vital Signs Vital Signs: Last Vital Si
[2019-09-27] MEDS: INSULIN ASPART (*BKC) 100 UNITS/ML 10 UNITS SUB-Q ×3 (09:15→18:09)
[2019-09-27] MEDS: ACETAMINOPHEN 325 MG TABLET 650 MG PO ×3 (09:24→20:53)
[2019-09-27] MEDS: MAGNESIUM SULF 2 GM/WATER 50ML 2 GM/50 ML BAG IVPB (10:21)
[2019-09-27] MEDS: ENOXAPARIN 40 MG/0.4 ML SYRINGE SUB-Q (11:41)
[2019-09-27 13:52] LABS: Glucose Point of Care 153 (65-105)
[2019-09-27 17:02] LABS: Pneumococcal Antigen Urine Not Detected (Not Detected)
[2019-09-27 18:35] LABS: Legionella pneumophila Ag Ur Not Detected (Not Detected)
[2019-09-27] MEDS: FENOFIBRATE,MICRONIZED 48 MG TABLET PO (20:48)
[2019-09-27] MEDS: INSULIN DETEMIR 100 UNITS/ML 75 UNITS SUB-Q (20:48)
[2019-09-27] MEDS: ATORVASTATIN 10 MG TABLET PO (20:48)
[2019-09-27 22:09] LABS: Glucose Point of Care 153 (65-105)
[2019-09-28] VITALS (17 sets, daily range): BP systolic 106–143; BP diastolic 34–91; PULSE 81–150; RESP 16–24; TEMP 36.5–38.3; O2SAT 90–94
[2019-09-28] MEDS: ALBUTEROL SULFATE (*SP) AEROSOL 1 PUFF 4 PUFF INHALATION ×3 (01:39→13:02)
[2019-09-28] MEDS: ACETAMINOPHEN 325 MG TABLET 650 MG PO ×3 (05:32→23:04)
[2019-09-28 06:05] LABS: Basophils Percent Auto 0.2 % (0.2-1.2); Hematocrit 33.4 % (37.0-47.0); Hemoglobin 11.4 g/dL (12.0-15.0); Immature Granulocyte Absolute 0.03 K/mm3 (0.00-0.031); Immature Granulocyte Percent A 0.6 % (0-0.5); Lymphocytes Absolute Auto 0.71 K/mm3 (0.9-3.2); Lymphocytes Percent Auto 14.8 % (18.3-44.2); Mean Corpuscular HGB Conc 34.1 g/dl (32-36); Mean Corpuscular Hemoglobin 29.2 pg (26-34); Mean Corpuscular Volume 85.4 fl (80-100); Monocytes Absolute Auto 0.3 K/mm3 (0.1-0.6); Monocytes Percent Auto 5.2 % (2.6-8.5); Neutrophils Absolute Auto 3.8 K/mm3 (1.3-6.7); Neutrophils Percent Auto 79.2 % (45.5-73.1); Platelet Count Result 202 k/mm3 (150-375); Red Blood Count 3.91 M/mm3 (4.2-5.4); Red Cell Distribution Width 11.9 % (11.5-14.5); White Blood Count 4.8 K/mm3 (4.5-10.0)
[2019-09-28 06:47] LABS: Alanine Aminotransferase 33 U/L (4-35); Albumin Level 3.6 g/dL (3.5-5.1); Alkaline Phosphatase 46 U/L (38-126); Aspartate Amino Transferase 36 U/L (14-36); Bilirubin,Total 0.3 mg/dL (0.2-1.3); Blood Urea Nitrogen 10 mg/dL (7-17); CRP 7.2 mg/dL (<1.0); Calcium 8.5 mg/dL (8.4-10.2); Carbon Dioxide 28 mmol/L (22-30); Chloride 104 mmol/L (98-107); Creatine Kinase 54 U/L (30-135); Estimated CRCL calculation 98 ml/min; Estimated Glomerular Filt Rate > 60; Glucose 91 mg/dL (65-105); Lactate Dehydrogenase 572 U/L (313-618); Phosphorus 3.5 mg/dL (2.5-4.5); Sodium 138 mmol/L (137-145)
--- NOTE | 2019-09-28 07:31 | PC.NURSE ---
Patient lying in prone position, o2 sat is staying 94% to 100%. When patient moved to supine position he o2 dropped to 84%. Dr. Vanegas was informed. He instructed that if she got shortness of breath and desatted again to order ABG labs.
[2019-09-28 08:06] LABS: Potassium 3.8 mmol/L (3.4-5.0)
[2019-09-28] MEDS: HYDROXYCHLOROQUINE SULFATE 200 MG TABLET 400 MG PO (08:20)
[2019-09-28 08:47] LABS: Glucose Point of Care 85 (65-105)
[2019-09-28] MEDS: ENOXAPARIN 40 MG/0.4 ML SYRINGE SUB-Q (11:37)
[2019-09-28] MEDS: LOSARTAN POTASSIUM 25 MG TABLET 50 MG PO (11:37)
[2019-09-28] MEDS: MULTIVITAMINS THERAPEUTIC TAB (*BKC) 1 TABLET PO (11:37)
[2019-09-28] MEDS: INSULIN ASPART (*BKC) 100 UNITS/ML 10 UNITS SUB-Q (11:42)
--- NOTE | 2019-09-28 11:43 | PC.NURSE ---
Notified Angela PAGE that patients heart rate went to 150. Stayed in room with patient until Angela arrived.
--- NOTE | 2019-09-28 11:53 | ECG_ITS ---
Measurements Intervals [place] Rate: 132 P: NV: 0 QRS: 10 QRSD: 92 T: -20 QT: 288 QTc: 427 Interpretive Statements ATRIAL FIBRILLATION WITH RAPID VENTRICULAR RESPONSE INFERIOR INFARCT, AGE INDETERMINATE BORDERLINE ST ABNORMALITY- ANTEROLAT/LAT LEADS ABNORMAL ECG Electronically Signed On 09-28-2019 13:15:37 CDT by Scott Combs D.O.
--- NOTE | 2019-09-28 11:54 | PC.NURSE ---
Angela notified of heart rate up to 170- rhythm a fib with occasional PVCs. 02 sat 95 on 5L/NC.
--- NOTE | 2019-09-28 11:56 | PC.NURSE ---
Stat EKG ordered.
--- NOTE | 2019-09-28 12:03 | PC.NURSE ---
02 sat remains 95% on 5L/ NC. Heart rate 138 at this time. No SOB or c/o chest pain at this time.
[2019-09-28 12:13] LABS: Glucose Point of Care 174 (65-105)
[2019-09-28] MEDS: METOPROLOL TARTRATE INJ 5 MG/5 ML VIAL IV PUSH (12:43)
[2019-09-28] MEDS: DILTIAZEM HCL 60 MG TABLET PO ×3 (14:26→23:03)
--- NOTE | 2019-09-28 14:46 | P.PNIM_ITS ---
Progress Note: A&P Assessment and Plan (1) Pneumonia: Qualifiers: Laterality: right Lung location: lower lobe of lung Pneumonia type: due to unspecified organism Qualified Code(s): J18.9 - Pneumonia, unspecified organism Code(s): J18.9 - Pneumonia, unspecified organism Status: Acute Assessment and Plan: * COVID-19 positive. * CT chest demonstrates multifocal lung disease with patchy groundglass opacities. * Continue rocephin (day 4), add doxycycline (day 1), azithromycin stopped. Switch albuterol to Xopenex. * Continue supportive care with Tylenol for fevers and supplemental O2, incentive spirometer. * Sputum culture if she can produce one. Blood cultures are pending with no growth to date. Pneumococcal and legionella urinary antigens negative. * Encourage prone positioning for as long and as often as she can tolerate. Monitor with continuous pulse oximetry. * *Hydroxychloroquine was offered. Patient received one dose but would like to discontinue. (2) Atrial fibrillation: Qualifiers: Atrial fibrillation type: unspecified Qualified Code(s): I48.91 - Unspecified atrial fibrillation Code(s): I48.91 - Unspecified atrial fibrillation Status: Acute Assessment and Plan: * Acute onset of a fib RVR this afternoon felt to be secondary to above. * Received one-time dose of IV lopressor. Discussed with cardiology. Started oral diltiazem 60mg q6. Rates improved from 120s-150s to low 100s-110. * Monitor with cardiac telemetry. (3) Acute respiratory failure with hypoxia: Code(s): J96.01 - Acute respiratory failure with hypoxia Status: Acute Assessment and Plan: * Currently up to 5L nasal cannula. Monitor with continuous pulse oximetry. (4) Sepsis: Qualifiers: Sepsis type: sepsis due to unspecified organism Sepsis acute organ dysfunction status: unspecified Qualified Code(s): A41.9 - Sepsis, unspecified organism Code(s): A41.9 - Sepsis, unspecified organism Status: Acute Assessment and Plan: * Present on admission with tachycardia and fever in the setting of infection. Source is respiratory. Lactic acid is within normal limits. * Continue to monitor vital signs and urine output. Looks net positive but she has multiple unmeasured voids. Febrile early this AM. * Blood cultures pending with no growth to date. (5) Long-term current use of insulin for diabetes mellitus: Code(s): Z79.4 - correction (current) use of insulin; E11.9 - Type 2 diabetes mellitus without complications Status: Acute Assessment and Plan: * Hemoglobin A1c several months ago was 8.0%. * Blood sugars are stable today. Continue basal insulin and mealtime bolus insulin. One mealtime bolus held this AM for BS 80s before breakfast; decrease mealtime bolus from 10 units to 6. Home victoza nonformulary and held. * Monitor with accu-cheks and adjust treatment as needed. (6) XAVIER on CPAP: Code(s): G47.33 - Obstructive sleep apnea (adult) (pediatric); Z99.89 - Dependence on other enabling machines and devices Status: Acute Assessment and Plan: * Patient unable to use CPAP per hospital policy as she is not in negative pressure room and has COVID-19. (7) Essential (primary) hypertension: Code(s): I10 - Essential (primary) hypertension Status: Acute Assessment and Plan: * Stable. Continue home Losartan an
--- NOTE | 2019-09-28 14:46 | PM.IMPN ---
Progress Note: A&P Assessment and Plan (1) Pneumonia: Qualifiers: Laterality: right Lung location: lower lobe of lung Pneumonia type: due to unspecified organism Qualified Code(s): J18.9 - Pneumonia, unspecified organism Code(s): J18.9 - Pneumonia, unspecified organism Status: Acute Assessment and Plan: COVID-[address] chest demonstrates multifocal lung disease with patchy groundglass opacities. Continue rocephin (day 4), add doxycycline (day 1), azithromycin stopped. Switch albuterol to Xopenex. Continue supportive care with Tylenol for fevers and supplemental O2, incentive spirometer. Sputum culture if she can produce one. Blood cultures are pending with no growth to date. Pneumococcal and legionella urinary antigens negative. Encourage prone positioning for as long and as often as she can tolerate. Monitor with continuous pulse oximetry. *Hydroxychloroquine was offered. Patient received one dose but would like to discontinue. (2) Atrial fibrillation: Qualifiers: Atrial fibrillation type: unspecified Qualified Code(s): I48.91 - Unspecified atrial fibrillation Code(s): I48.91 - Unspecified atrial fibrillation Status: Acute Assessment and Plan: Acute onset of a fib RVR this afternoon felt to be secondary to above. Received one-time dose of IV lopressor. Discussed with cardiology. Started oral diltiazem 60mg q6. Rates improved from 120s-150s to low 100s-110. Monitor with cardiac telemetry. (3) Acute respiratory failure with hypoxia: Code(s): J96.01 - Acute respiratory failure with hypoxia Status: Acute Assessment and Plan: Currently up to 5L nasal cannula. Monitor with continuous pulse oximetry. (4) Sepsis: Qualifiers: Sepsis type: sepsis due to unspecified organism Sepsis acute organ dysfunction status: unspecified Qualified Code(s): A41.9 - Sepsis, unspecified organism Code(s): A41.9 - Sepsis, unspecified organism Status: Acute Assessment and Plan: Present on admission with tachycardia and fever in the setting of infection. Source is respiratory. Lactic acid is within normal limits. Continue to monitor vital signs and urine output. Looks net positive but she has multiple unmeasured voids. Febrile early this AM. Blood cultures pending with no growth to date. (5) Long-term current use of insulin for diabetes mellitus: Code(s): Z79.4 - terminal carman (current) use of insulin; E11.9 - Type 2 diabetes mellitus without complications Status: Acute Assessment and Plan: Hemoglobin A1c several months ago was 8.0%. Blood sugars are stable today. Continue basal insulin and mealtime bolus insulin. One mealtime bolus held this AM for BS 80s before breakfast; decrease mealtime bolus from 10 units to 6. Home victoza nonformulary and held. Monitor with accu-cheks and adjust treatment as needed. (6) XAVIER on CPAP: Code(s): G47.33 - Obstructive sleep apnea (adult) (pediatric); Z99.89 - Dependence on other enabling machines and devices Status: Acute Assessment and Plan: Patient unable to use CPAP per hospital policy as she is not in negative pressure room and has COVID-19. (7) Essential (primary) hypertension: Code(s): I10 - Essential (primary) hypertension Status: Acute Assessment and Plan: Stable. Continue home Losartan and monitor BP. Subjective Date/time seen: 09/28/19 1145 Interval history: Ms. Yun is a 59yo F admitted for acute respiratory failure and is COVID-19 positive. She continues with shortness of breath today. Her shortness of breath is worst with coughing fits, and she notes that she doesn't feel that short of breath when walking. She denies ches
[2019-09-28] MEDS: FUROSEMIDE INJ 40 MG/4 ML VIAL 20 MG IV PUSH (15:25)
[2019-09-28 16:24] LABS: Glucose Point of Care 177 (65-105)
--- NOTE | 2019-09-28 16:46 | PC.NURSE ---
Reviewed afternoon tele and heart rate with Angela Powell post Lopressor medication dosing. She states OK to keep on MED SURG Tele status. Continue to monitor and contact MD for any concerns. Heart rate currently 96 w A fib continued - first PO Cardizem dose given at 1300. will observe. No c/o SOB or chest pain or palpitations.
[2019-09-28 17:48] LABS: Glucose Point of Care 76 (65-105)
[2019-09-28] MEDS: FENOFIBRATE,MICRONIZED 48 MG TABLET PO (20:07)
[2019-09-28] MEDS: ATORVASTATIN 10 MG TABLET PO (20:07)
[2019-09-28 20:29] LABS: Glucose Point of Care 141 (65-105)
[2019-09-28] MEDS: LEVALBUTEROL HFA (*SP) 15 GM INHALER 2 PUFF INHALATION (21:29)
[2019-09-28] MEDS: INSULIN DETEMIR 100 UNITS/ML 20 UNITS SUB-Q (22:32)
[2019-09-29] VITALS (15 sets, daily range): BP systolic 96–135; BP diastolic 50–65; PULSE 69–99; RESP 18–20; TEMP 36.6–37.1; O2SAT 83–100
[2019-09-29] MEDS: LEVALBUTEROL HFA (*SP) 15 GM INHALER 2 PUFF INHALATION ×4 (03:12→21:11)
[2019-09-29] MEDS: DILTIAZEM HCL 60 MG TABLET PO ×4 (05:26→23:04)
[2019-09-29 06:41] LABS: Basophils Percent Auto 0.5 % (0.2-1.2); Eosinophils Percent Auto 0.2 % (0-4.4); Hematocrit 36.9 % (37.0-47.0); Hemoglobin 12.9 g/dL (12.0-15.0); Immature Granulocyte Absolute 0.04 K/mm3 (0.00-0.031); Immature Granulocyte Percent A 0.9 % (0-0.5); Lymphocytes Absolute Auto 0.95 K/mm3 (0.9-3.2); Lymphocytes Percent Auto 21.5 % (18.3-44.2); Mean Corpuscular Volume 85.8 fl (80-100); Mean Platelet Volume 9.8 fl (7.4-10.4); Monocytes Absolute Auto 0.4 K/mm3 (0.1-0.6); Monocytes Percent Auto 8.8 % (2.6-8.5); Neutrophils Percent Auto 68.1 % (45.5-73.1); Platelet Count Result 265 k/mm3 (150-375); White Blood Count 4.4 K/mm3 (4.5-10.0)
[2019-09-29 06:58] LABS: Alanine Aminotransferase 27 U/L (4-35); Albumin Level 3.6 g/dL (3.5-5.1); Alkaline Phosphatase 49 U/L (38-126); Aspartate Amino Transferase 31 U/L (14-36); Bilirubin,Total 0.5 mg/dL (0.2-1.3); Blood Urea Nitrogen 12 mg/dL (7-17); Calcium 8.6 mg/dL (8.4-10.2); Carbon Dioxide 28 mmol/L (22-30); Chloride 101 mmol/L (98-107); Creatine Kinase 76 U/L (30-135); Estimated CRCL calculation 85 ml/min; Estimated Glomerular Filt Rate > 60; Glucose 154 mg/dL (65-105); Lactate Dehydrogenase 579 U/L (313-618); Phosphorus 3.6 mg/dL (2.5-4.5); Potassium 3.8 mmol/L (3.4-5.0); Sodium 136 mmol/L (137-145)
[2019-09-29 07:04] LABS: CRP 11.9 mg/dL (<1.0)
[2019-09-29] MEDS: ENOXAPARIN 40 MG/0.4 ML SYRINGE SUB-Q (08:48)
[2019-09-29] MEDS: MULTIVITAMINS THERAPEUTIC TAB (*BKC) 1 TABLET PO (08:49)
[2019-09-29 09:06] LABS: Glucose Point of Care 162 (65-105)
--- NOTE | 2019-09-29 13:19 | P.PNIM_ITS ---
Progress Note: A&P Assessment and Plan (1) Pneumonia: Qualifiers: Laterality: right Lung location: lower lobe of lung Pneumonia type: due to unspecified organism Qualified Code(s): J18.9 - Pneumonia, unspecified organism Code(s): J18.9 - Pneumonia, unspecified organism Status: Acute Assessment and Plan: * COVID-[address] chest demonstrates multifocal lung disease with patchy groundglass opacities. * Continue rocephin (day 5), add doxycycline (day 2), azithromycin stopped. Continue Xopenex. * Continue supportive care with Tylenol for fevers and supplemental O2, incentive spirometer. * Sputum culture if she can produce one. Blood cultures are pending with no growth to date. Pneumococcal and legionella urinary antigens negative. * Encourage prone positioning for as long and as often as she can tolerate. [place] tor with continuous pulse oximetry. (2) Atrial fibrillation: Qualifiers: Atrial fibrillation type: unspecified Qualified Code(s): I48.91 - Unspecified atrial fibrillation Code(s): I48.91 - Unspecified atrial fibrillation Status: Acute Assessment and Plan: * Acute onset of a fib RVR yesterday felt to be secondary to above. * Received one-time dose of IV lopressor yesterday then started on oral diltiazem - spontaneously converted to normal sinus rhythm and has maintained NSR today. Discussed with cardiology. * Monitor with cardiac telemetry. (3) Acute respiratory failure with hypoxia: Code(s): J96.01 - Acute respiratory failure with hypoxia Status: Acute Assessment and Plan: * Currently down to 4L nasal cannula. Monitor with continuous pulse oximetry. (4) Sepsis: Qualifiers: Sepsis acute organ dysfunction status: unspecified Sepsis type: sepsis due to unspecified organism Qualified Code(s): A41.9 - Sepsis, unspecified organism Code(s): A41.9 - Sepsis, unspecified organism Status: Acute Assessment and Plan: * Present on admission with tachycardia and fever in the setting of infection. Source is respiratory. Lactic acid is within normal limits. * Continue to monitor vital signs and urine output. Looks net positive but she has multiple unmeasured voids. Afebrile today. * Blood cultures pending with no growth to date. (5) Long-term current use of insulin for diabetes mellitus: Code(s): Z79.4 - senior care (current) use of insulin; E11.9 - Type 2 diabetes mellitus without complications Status: Acute Assessment and Plan: * Hemoglobin A1c several months ago was 8.0%. * Blood sugars are stable today. Her home mealtime Novolog is held, home Levemir decreased. Home victoza nonformulary and held. * Monitor with accu-cheks and adjust treatment as needed. (6) XAVIER on CPAP: Code(s): G47.33 - Obstructive sleep apnea (adult) (pediatric); Z99.89 - Dependence on other enabling machines and devices Status: Acute Assessment and Plan: * Patient unable to use CPAP per hospital policy as she is not in negative pressure room and COVID-19 positive. (7) Essential (primary) hypertension: Code(s): I10 - Essential (primary) hypertension Status: Acute Assessment and Plan: * BPs on lower end. Losartan held. Continue to monitor BP. Subjective Date/time seen: 09/29/19 1200 Interval history: Ms. Yun is a 59yo F admitted for
--- NOTE | 2019-09-29 13:19 | PM.IMPN ---
Progress Note: A&P Assessment and Plan (1) Pneumonia: Qualifiers: Laterality: right Lung location: lower lobe of lung Pneumonia type: due to unspecified organism Qualified Code(s): J18.9 - Pneumonia, unspecified organism Code(s): J18.9 - Pneumonia, unspecified organism Status: Acute Assessment and Plan: COVID-[address] chest demonstrates multifocal lung disease with patchy groundglass opacities. Continue rocephin (day 5), add doxycycline (day 2), azithromycin stopped. Continue Xopenex. Continue supportive care with Tylenol for fevers and supplemental O2, incentive spirometer. Sputum culture if she can produce one. Blood cultures are pending with no growth to date. Pneumococcal and legionella urinary antigens negative. Encourage prone positioning for as long and as often as she can tolerate. Monitor with continuous pulse oximetry. (2) Atrial fibrillation: Qualifiers: Atrial fibrillation type: unspecified Qualified Code(s): I48.91 - Unspecified atrial fibrillation Code(s): I48.91 - Unspecified atrial fibrillation Status: Acute Assessment and Plan: Acute onset of a fib RVR yesterday felt to be secondary to above. Received one-time dose of IV lopressor yesterday then started on oral diltiazem - spontaneously converted to normal sinus rhythm and has maintained NSR today. Discussed with cardiology. Monitor with cardiac telemetry. (3) Acute respiratory failure with hypoxia: Code(s): J96.01 - Acute respiratory failure with hypoxia Status: Acute Assessment and Plan: Currently down to 4L nasal cannula. Monitor with continuous pulse oximetry. (4) Sepsis: Qualifiers: Sepsis acute organ dysfunction status: unspecified Sepsis type: sepsis due to unspecified organism Qualified Code(s): A41.9 - Sepsis, unspecified organism Code(s): A41.9 - Sepsis, unspecified organism Status: Acute Assessment and Plan: Present on admission with tachycardia and fever in the setting of infection. Source is respiratory. Lactic acid is within normal limits. Continue to monitor vital signs and urine output. Looks net positive but she has multiple unmeasured voids. Afebrile today. Blood cultures pending with no growth to date. (5) Long-term current use of insulin for diabetes mellitus: Code(s): Z79.4 - rodent exterminator (current) use of insulin; E11.9 - Type 2 diabetes mellitus without complications Status: Acute Assessment and Plan: Hemoglobin A1c several months ago was 8.0%. Blood sugars are stable today. Her home mealtime Novolog is held, home Levemir decreased. Home victoza nonformulary and held. Monitor with accu-cheks and adjust treatment as needed. (6) XAVIER on CPAP: Code(s): G47.33 - Obstructive sleep apnea (adult) (pediatric); Z99.89 - Dependence on other enabling machines and devices Status: Acute Assessment and Plan: Patient unable to use CPAP per hospital policy as she is not in negative pressure room and COVID-19 positive. (7) Essential (primary) hypertension: Code(s): I10 - Essential (primary) hypertension Status: Acute Assessment and Plan: BPs on lower end. Losartan held. Continue to monitor BP. Subjective Date/time seen: 09/29/19 1200 Interval history: Ms. Yun is a 59yo F admitted for acute respiratory failure and is COVID-19 positive. She reports feeling much quite a bit better than yesterday - shortness of breath improved and cough improved per patient. She denies chest pain or palpitations. Two soft stools yesterday but not watery, no diarrhea today. She tolerated breakfast this morning without abdominal pain, nausea, or vomiting. She reports discomfort at right AC s
[2019-09-29] MEDS: ATORVASTATIN 10 MG TABLET PO (20:07)
[2019-09-29] MEDS: FENOFIBRATE,MICRONIZED 48 MG TABLET PO (20:07)
[2019-09-29] MEDS: INSULIN DETEMIR 100 UNITS/ML 50 UNITS SUB-Q (20:12)
[2019-09-29] MEDS: ACETAMINOPHEN 325 MG TABLET 650 MG PO (23:04)
[2019-09-30] VITALS (14 sets, daily range): BP systolic 106–138; BP diastolic 59–63; PULSE 75–96; RESP 18–22; TEMP 36.5–36.9; O2SAT 89–97
[2019-09-30] MEDS: LEVALBUTEROL HFA (*SP) 15 GM INHALER 2 PUFF INHALATION ×4 (02:42→20:29)
[2019-09-30 06:00] LABS: Basophils Percent Auto 0.8 % (0.2-1.2); Eosinophils Percent Auto 0.8 % (0-4.4); Hematocrit 33.9 % (37.0-47.0); Hemoglobin 11.5 g/dL (12.0-15.0); Immature Granulocyte Absolute 0.03 K/mm3 (0.00-0.031); Immature Granulocyte Percent A 0.8 % (0-0.5); Lymphocytes Absolute Auto 0.94 K/mm3 (0.9-3.2); Lymphocytes Percent Auto 23.9 % (18.3-44.2); Mean Corpuscular HGB Conc 33.9 g/dl (32-36); Mean Corpuscular Hemoglobin 29.3 pg (26-34); Mean Corpuscular Volume 86.3 fl (80-100); Monocytes Absolute Auto 0.4 K/mm3 (0.1-0.6); Monocytes Percent Auto 10.7 % (2.6-8.5); Neutrophils Absolute Auto 2.5 K/mm3 (1.3-6.7); Platelet Count Result 297 k/mm3 (150-375); Red Blood Count 3.93 M/mm3 (4.2-5.4); Red Cell Distribution Width 11.9 % (11.5-14.5); White Blood Count 3.9 K/mm3 (4.5-10.0)
[2019-09-30 06:10] LABS: Alanine Aminotransferase 27 U/L (4-35); Albumin Level 3.4 g/dL (3.5-5.1); Alkaline Phosphatase 47 U/L (38-126); Aspartate Amino Transferase 32 U/L (14-36); Bilirubin,Total 0.4 mg/dL (0.2-1.3); Blood Urea Nitrogen 14 mg/dL (7-17); CRP 5.7 mg/dL (<1.0); Calcium 8.6 mg/dL (8.4-10.2); Carbon Dioxide 33 mmol/L (22-30); Chloride 102 mmol/L (98-107); Creatine Kinase 58 U/L (30-135); Estimated CRCL calculation 75 ml/min; Estimated Glomerular Filt Rate > 60; Glucose 162 mg/dL (65-105); Lactate Dehydrogenase 507 U/L (313-618); Phosphorus 3.6 mg/dL (2.5-4.5); Potassium 3.9 mmol/L (3.4-5.0); Sodium 140 mmol/L (137-145)
[2019-09-30] MEDS: DILTIAZEM HCL 60 MG TABLET PO ×4 (06:51→23:58)
[2019-09-30 07:01] LABS: Glucose Point of Care 236 (65-105)
[2019-09-30 07:01] LABS: Glucose Point of Care 161 (65-105)
[2019-09-30 07:01] LABS: Glucose Point of Care 189 (65-105)
[2019-09-30] MEDS: ENOXAPARIN 40 MG/0.4 ML SYRINGE SUB-Q (09:06)
[2019-09-30] MEDS: MULTIVITAMINS THERAPEUTIC TAB (*BKC) 1 TABLET PO (09:06)
[2019-09-30 10:12] LABS: Glucose Point of Care 139 (65-105)
--- NOTE | 2019-09-30 12:05 | P.PNIM_ITS ---
Progress Note: A&P Assessment and Plan (1) Pneumonia: Qualifiers: Laterality: right Lung location: lower lobe of lung Pneumonia type: due to unspecified organism Qualified Code(s): J18.9 - Pneumonia, unspecified organism Code(s): J18.9 - Pneumonia, unspecified organism Status: Acute Assessment and Plan: * COVID-[address] chest demonstrates multifocal lung disease with patchy groundglass opacities. * Continue rocephin (day 6), add doxycycline (day 3), azithromycin stopped. Continue Xopenex. * Afebrile since 09/27. Continue supportive care with Tylenol for fevers and supplemental O2, incentive spirometer. * Sputum culture if she can produce one. Blood cultures are pending with no growth to date. Pneumococcal and legionella urinary antigens negative. * Encourage prone positioning for as long and as often as she can tolerate. Monitor with continuous pulse oximetry. (2) Atrial fibrillation: Qualifiers: Atrial fibrillation type: unspecified Qualified Code(s): I48.91 - Unspecified atrial fibrillation Code(s): I48.91 - Unspecified atrial fibrillation Status: Acute Assessment and Plan: * Acute onset of a fib RVR 09/27 felt to be secondary to above. * Received one-time dose of IV lopressor 09/27 then started on oral diltiazem - spontaneously converted to normal sinus rhythm and has maintained NSR so far today. * Monitor with cardiac telemetry. (3) Acute respiratory failure with hypoxia: Code(s): J96.01 - Acute respiratory failure with hypoxia Status: Acute Assessment and Plan: * Currently down to 5 and 6L nasal cannula today. Monitor with continuous pulse oximetry. (4) Sepsis: Qualifiers: Sepsis acute organ dysfunction status: unspecified Sepsis type: sepsis due to unspecified organism Qualified Code(s): A41.9 - Sepsis, unspecified organism Code(s): A41.9 - Sepsis, unspecified organism Status: Acute Assessment and Plan: * Present on admission with tachycardia and fever in the setting of infection. Source is respiratory. Lactic acid is within normal limits. * Continue to monitor vital signs and urine output. Looks net positive but she has multiple unmeasured voids. Afebrile today. * Blood cultures pending with no growth to date. (5) Long-term current use of insulin for diabetes mellitus: Code(s): Z79.4 - termite treater (current) use of insulin; E11.9 - Type 2 diabetes mellitus without complications Status: Acute Assessment and Plan: * Hemoglobin A1c several months ago was 8.0%. * Blood sugars are stable today. Her home mealtime Novolog was held - add back scheduled Novolog today at lower dose. home Levemir decreased. Home victoza nonformulary and held. * Monitor with accu-cheks and adjust treatment as needed. (6) XAVIER on CPAP: Code(s): G47.33 - Obstructive sleep apnea (adult) (pediatric); Z99.89 - Dependence on other enabling machines and devices Status: Acute Assessment and Plan: * Patient unable to use CPAP per hospital policy as she is not in negative pressure room and COVID-19 positive. (7) Essential (primary) hypertension: Code(s): I10 - Essential (primary) hypertension Status: Acute Assessment and Plan: * BPs on lower end. Losartan held. Continue to monitor BP. Subjective Date/time seen: 09/30/19 1000
--- NOTE | 2019-09-30 12:05 | PM.IMPN ---
Progress Note: A&P Assessment and Plan (1) Pneumonia: Qualifiers: Laterality: right Lung location: lower lobe of lung Pneumonia type: due to unspecified organism Qualified Code(s): J18.9 - Pneumonia, unspecified organism Code(s): J18.9 - Pneumonia, unspecified organism Status: Acute Assessment and Plan: COVID-[address] chest demonstrates multifocal lung disease with patchy groundglass opacities. Continue rocephin (day 6), add doxycycline (day 3), azithromycin stopped. Continue Xopenex. Afebrile since 09/27. Continue supportive care with Tylenol for fevers and supplemental O2, incentive spirometer. Sputum culture if she can produce one. Blood cultures are pending with no growth to date. Pneumococcal and legionella urinary antigens negative. Encourage prone positioning for as long and as often as she can tolerate. Monitor with continuous pulse oximetry. (2) Atrial fibrillation: Qualifiers: Atrial fibrillation type: unspecified Qualified Code(s): I48.91 - Unspecified atrial fibrillation Code(s): I48.91 - Unspecified atrial fibrillation Status: Acute Assessment and Plan: Acute onset of a fib RVR 09/27 felt to be secondary to above. Received one-time dose of IV lopressor 09/27 then started on oral diltiazem - spontaneously converted to normal sinus rhythm and has maintained NSR so far today. Monitor with cardiac telemetry. (3) Acute respiratory failure with hypoxia: Code(s): J96.01 - Acute respiratory failure with hypoxia Status: Acute Assessment and Plan: Currently down to 5 and 6L nasal cannula today. Monitor with continuous pulse oximetry. (4) Sepsis: Qualifiers: Sepsis acute organ dysfunction status: unspecified Sepsis type: sepsis due to unspecified organism Qualified Code(s): A41.9 - Sepsis, unspecified organism Code(s): A41.9 - Sepsis, unspecified organism Status: Acute Assessment and Plan: Present on admission with tachycardia and fever in the setting of infection. Source is respiratory. Lactic acid is within normal limits. Continue to monitor vital signs and urine output. Looks net positive but she has multiple unmeasured voids. Afebrile today. Blood cultures pending with no growth to date. (5) Long-term current use of insulin for diabetes mellitus: Code(s): Z79.4 - rn long term care (current) use of insulin; E11.9 - Type 2 diabetes mellitus without complications Status: Acute Assessment and Plan: Hemoglobin A1c several months ago was 8.0%. Blood sugars are stable today. Her home mealtime Novolog was held - add back scheduled Novolog today at lower dose. home Levemir decreased. Home victoza nonformulary and held. Monitor with accu-cheks and adjust treatment as needed. (6) XAVIER on CPAP: Code(s): G47.33 - Obstructive sleep apnea (adult) (pediatric); Z99.89 - Dependence on other enabling machines and devices Status: Acute Assessment and Plan: Patient unable to use CPAP per hospital policy as she is not in negative pressure room and COVID-19 positive. (7) Essential (primary) hypertension: Code(s): I10 - Essential (primary) hypertension Status: Acute Assessment and Plan: BPs on lower end. Losartan held. Continue to monitor BP. Subjective Date/time seen: 09/30/19 1000 Interval history: Ms. Yun is a 59yo F admitted for acute respiratory failure and is COVID-19 positive. She reports feeling much better today and that her shortness of breath has improved. No diarrhea yesterday or so far today. She is tolerating oral intake without nausea, vomiting, or abdominal pain. Review of Systems Review of Systems: Narrative: Twelve systems were reviewed with
[2019-09-30] MEDS: INSULIN ASPART (*BKC) 100 UNITS/ML SUB-Q (12:48)
[2019-09-30 12:59] LABS: Glucose Point of Care 226 (65-105)
[2019-09-30] MEDS: ACETAMINOPHEN 325 MG TABLET 650 MG PO ×2 (17:39→23:58)
[2019-09-30] MEDS: INSULIN ASPART (*BKC) 100 UNITS/ML 6 UNITS SUB-Q (17:46)
[2019-09-30 17:47] LABS: Glucose Point of Care 160 (65-105)
[2019-09-30] MEDS: INSULIN DETEMIR 100 UNITS/ML 50 UNITS SUB-Q (20:03)
[2019-09-30] MEDS: FENOFIBRATE,MICRONIZED 48 MG TABLET PO (20:03)
[2019-09-30] MEDS: ATORVASTATIN 10 MG TABLET PO (20:03)
[2019-10-01] VITALS (15 sets, daily range): BP systolic 101–147; BP diastolic 50–70; PULSE 71–99; RESP 16–20; TEMP 36.5–36.7; O2SAT 87–95; BMI 32.2
[2019-10-01] MEDS: LEVALBUTEROL HFA (*SP) 15 GM INHALER 2 PUFF INHALATION ×3 (02:40→13:44)
[2019-10-01] MEDS: DILTIAZEM HCL 60 MG TABLET PO ×2 (05:51→12:02)
[2019-10-01 07:00] LABS: Glucose Point of Care 290 (65-105)
[2019-10-01] MEDS: ENOXAPARIN 40 MG/0.4 ML SYRINGE SUB-Q (08:27)
[2019-10-01] MEDS: INSULIN ASPART (*BKC) 100 UNITS/ML 6 UNITS SUB-Q ×2 (08:27→12:04)
[2019-10-01] MEDS: MULTIVITAMINS THERAPEUTIC TAB (*BKC) 1 TABLET PO (08:28)
[2019-10-01 09:45] LABS: Glucose Point of Care 164 (65-105)
[2019-10-01] MEDS: INSULIN ASPART (*BKC) 100 UNITS/ML SUB-Q (12:03)
[2019-10-01 12:06] LABS: Glucose Point of Care 224 (65-105)
--- NOTE | 2019-10-01 15:55 | PM.DS ---
DS: Diagnosis Admitting Diagnosis Admitting Diagnosis: Acute respiratory failure with hypoxia Discharge Diagnosis (1) Coronavirus infection: Code(s): B34.2 - Coronavirus infection, unspecified Status: Acute Assessment and Plan: Date of Service 10/01/19 Ms. Yun is a 59yo F with history of insulin-dependent type 2 DM, breast CA s/p mastectomy, hypertension, and obstructive sleep apnea who presented to the ED for evaluation of shortness of breath and cough. CT revealed multifocal lung disease and she tested positive for COVID-19. She was treated with empiric antibiotic therapy with rocephin and doxycycline. Her treatment also included supportive care with Xopenex and supplemental oxygen. For a few days during her admission, she was encouraged to lie in prone positioning which she tolerated well. She was offered a course of hydroxychloriquine. Risk vs. benefits were discussed and it was explained that there are no current regimens FDA-approved for COVID-19. After a baseline EKG and while monitored on cardiac telemetry, she received 1 dose of hydroxychloriquine. A few hours later, she was noted to be in atrial fibrillation with RVR. A fib resolved and normal sinus rhythm was restored after one dose of IV lopressor and one dose of oral diltiazem. She was continued on oral diltiazem 60mg PO q6 and remained in normal sinus rhythm the remainder of her admission. It was felt that the patient's atrial fibrillation with RVR was felt to be subsequent to her acute respiratory failure due to COVID-19 and not felt to have been caused by one dose of hydroxychloriquine. Patient did wish to discontinue the hydroxychloriquine which was reasonable in this setting of new arrhythmia. Ms. Yun's symptoms improved and she had been afebrile for 3 days prior to discharge while supplemental oxygen requirements were decreasing. She was discharged with home O2 set up (required 1L with activity). Ms. Yun was hemodynamically stable for discharge 10/01/19 and instructed to follow up with PCP this week. Per the EMR, patient has already had virtual visit with PCP 10/01. COVID-[address] chest demonstrates multifocal lung disease with patchy groundglass opacities. Treated with rocephin and doxycycline. No abx at discharge. Afebrile since 09/27. Continue supportive care with Tylenol for fevers and supplemental O2, incentive spirometer at home. Blood cultures are negative. Pneumococcal and legionella urinary antigens negative. Encouraged prone positioning for as long and as often as she could tolerate and she was monitored with continuous pulse oximetry. (2) Pneumonia: Qualifiers: Laterality: right Lung location: lower lobe of lung Pneumonia type: due to unspecified organism Qualified Code(s): J18.9 - Pneumonia, unspecified organism Code(s): J18.9 - Pneumonia, unspecified organism Status: Acute Assessment and Plan: Viral pneumonia secondary to COVID-19. (3) Atrial fibrillation: Qualifiers: Atrial fibrillation type: unspecified Qualified Code(s): I48.91 - Unspecified atrial fibrillation Code(s): I48.91 - Unspecified atrial fibrillation Status: Resolved Assessment and Plan: Acute onset of a fib RVR 09/27 felt to be secondary to above. Received one-time dose of IV lopressor 09/27 then started on oral diltiazem - spontaneously converted to normal sinus rhythm and has maintained NSR. (4) Acute respiratory failure with hypoxia: Code(s): J96.01 - Acute respiratory failure with hypoxia Status: Acute Assessment and Plan: Secondary to COVID-19. Required up to 7L nasal cannula during admission. Discharged with home O2 for 1L with activity. (5) Sepsis: Qualifiers: Sepsis type: sepsis due to unspecified organism Sepsis acu
--- NOTE | 2019-10-01 16:08 | HOMEO2EVAL ---
Home Oxygen Evaluation RC: Home Oxygen (O2) Evaluation Start: 10/01/19 13:31 Freq: ONCE Status: Active Protocol: RPE Activity Type Activity Date Activity User E-Sign Co-Sign Detail Recorded Client Recorded Date Recorded By Document 10/01/19 15:30 KRM [id number] 10/01/19 16:08 KRM Document 10/01/19 15:40 [email or web address] [email or web address] 10/01/19 16:08 KRM Document 10/01/19 15:40 KRM [email or web address] 10/01/19 16:08 KRM Document 10/01/19 15:43 KRM [email or web address] 10/01/19 16:08 KRM 10/01/19 10/01/19 10/01/19 15:30 15:40 15:40 Home O2 Evaluation Test Phase Resting Exercise Resting Oxygen Delivery Room Air Room Air Room Air Oxygen Flow Rate (L/min) Pulse Oximetry (90-100 %) 93 87 L 93 Pulse Rate (60-100 beats/min) 93 94 89 Activity Tolerance Good Home Oxygen Evaluation Comments 1lpm with activity Treatment Charges O2 Evaluation 10/01/19 15:43 Home O2 Evaluation Test Phase Exercise Oxygen Delivery Nasal Cannula Oxygen Flow Rate (L/min) 1 Pulse Oximetry (90-100 %) 93 Pulse Rate (60-100 beats/min) 90 Activity Tolerance Home Oxygen Evaluation Comments Treatment Charges
--- NOTE | 2019-10-01 16:09 | HOMEO2EVAL ---
Home Oxygen Evaluation RC: Home Oxygen (O2) Evaluation Start: 10/01/19 13:31 Freq: ONCE Status: Active Protocol: RPE Activity Type Activity Date Activity User E-Sign Co-Sign Detail Recorded Client Recorded Date Recorded By Document 10/01/19 15:30 KRM [id number] 10/01/19 16:08 KRM Document 10/01/19 15:40 KRM [email or web address] 10/01/19 16:08 KRM Document 10/01/19 15:45 KRM [email or web address] 10/01/19 16:08 KRM Document 10/01/19 15:43 KRM [email or web address] 10/01/19 16:08 KRM 10/01/19 10/01/19 10/01/19 15:30 15:40 15:45 Home O2 Evaluation Test Phase Resting Exercise Resting Oxygen Delivery Room Air Room Air Room Air Oxygen Flow Rate (L/min) Pulse Oximetry (90-100 %) 93 87 L 93 Pulse Rate (60-100 beats/min) 93 94 89 Activity Tolerance Good Home Oxygen Evaluation Comments 1lpm with activity Treatment Charges O2 Evaluation 10/01/19 15:43 Home O2 Evaluation Test Phase Exercise Oxygen Delivery Nasal Cannula Oxygen Flow Rate (L/min) 1 Pulse Oximetry (90-100 %) 93 Pulse Rate (60-100 beats/min) 90 Activity Tolerance Home Oxygen Evaluation Comments Treatment Charges
--- NOTE | 2019-10-01 16:31 | PCRCNOTE ---
1lpm home o2 required, set pt. up with [facility] [place] medical.
== END 2019-10-01 16:45 | disposition home or self-care (01) | DRG 871 ==
LOC: ANHED 15:44 → ANH3MEDSUR 15:59
PROVIDERS: Physician Assistant; Admitting Provider Family Medicine; Emergency Provider General Practice; PCP Family Medicine; Visit Provider Hospitalist
DX: A41.89 Other specified sepsis (principal); J96.01 Acute respiratory failure with hypoxia; U07.1 COVID-19; J12.89 Other viral pneumonia; G47.33 Obstructive sleep apnea (adult) (pediatric); E11.9 Type 2 diabetes mellitus without complications; I10 Essential (primary) hypertension; I48.91 Unspecified atrial fibrillation; E78.5 Hyperlipidemia, unspecified; M85.80 Other specified disorders of bone density and structure, unspecified site; M19.90 Unspecified osteoarthritis, unspecified site; Z85.3 Personal history of malignant neoplasm of breast; Z79.4 Long term (current) use of insulin; Z90.710 Acquired absence of both cervix and uterus
CPT/HCPCS: 36415; 36600; 71045; 71275; 80053; 82375; 82550; 82728; 82805; 83050; 83605; 83615; 83735; 83880; 84100; 85025; 85610; 85730; 86140; 87040; 87449; 87804; 87899; 93005; 94618; 94640; 96365; 96367; 96375; 99285; A9270; J0131; J0456; J0696; J1650; J1815; J1940; J2405; J3475; J7040; Q9967

== ENCOUNTER 2019-10-29 09:29 | Outpatient (CLI) | payer OTHER, SELFPAY ==
[2019-10-29 10:07] LABS: Basophils Absolute Auto 0.1 K/mm3 (0.0-0.1); Basophils Percent Auto 1.5 % (0.2-1.2); Eosinophils Absolute Auto 0.2 K/mm3 (0-0.3); Eosinophils Percent Auto 4.5 % (0-4.4); Hematocrit 39.2 % (37.0-47.0); Hemoglobin 13.4 g/dL (12.0-15.0); Immature Granulocyte Absolute 0.03 K/mm3 (0.00-0.031); Immature Granulocyte Percent A 0.6 % (0-0.5); Lymphocytes Absolute Auto 1.29 K/mm3 (0.9-3.2); Lymphocytes Percent Auto 27.6 % (18.3-44.2); Mean Corpuscular HGB Conc 34.2 g/dl (32-36); Mean Corpuscular Hemoglobin 29.5 pg (26-34); Mean Corpuscular Volume 86.2 fl (80-100); Mean Platelet Volume 10.2 fl (7.4-10.4); Monocytes Absolute Auto 0.5 K/mm3 (0.1-0.6); Monocytes Percent Auto 11.3 % (2.6-8.5); Neutrophils Absolute Auto 2.5 K/mm3 (1.3-6.7); Neutrophils Percent Auto 54.5 % (45.5-73.1); Platelet Count Result 236 k/mm3 (150-375); Red Blood Count 4.55 M/mm3 (4.2-5.4); Red Cell Distribution Width 12.4 % (11.5-14.5); White Blood Count 4.7 K/mm3 (4.5-10.0)
[2019-10-29 16:55] LABS: Hemoglobin A1C 7.6 % (<5.7)
[2019-10-29 16:57] LABS: Alanine Aminotransferase 50 U/L (4-35); Albumin Level 4.8 g/dL (3.5-5.1); Alkaline Phosphatase 56 U/L (38-126); Aspartate Amino Transferase 38 U/L (14-36); Bilirubin,Total 0.4 mg/dL (0.2-1.3); Blood Urea Nitrogen 15 mg/dL (7-17); Carbon Dioxide 22 mmol/L (22-30); Chloride 108 mmol/L (98-107); Estimated Glomerular Filt Rate > 60; Glucose 209 mg/dL (65-105); Potassium 4.7 mmol/L (3.4-5.0); Sodium 139 mmol/L (137-145)
[2019-10-31 14:19] LABS: CA 27.29 24 U/mL (<38)
== END 2019-10-29 09:30 | disposition home or self-care (01) ==
LOC: ANHLAB 09:51
PROVIDERS: PCP Family Medicine; Visit Provider Internal Medicine Hematology & Oncology
DX: C50.211 Malignant neoplasm of upper-inner quadrant of right female breast (principal); Z17.0 Estrogen receptor positive status [ER+]
CPT/HCPCS: 36415; 80053; 83036; 85025; 86300

== ENCOUNTER 2019-11-01 08:51 | Outpatient (CLI) | payer OTHER, SELFPAY ==
--- NOTE | ~2019-11-01 | XR_ITS ---
XR chest 2V DATE: 11/01/2019 09:14 INDICATION: Pneumonia follow-up. Recent shortness of breath, cough, contact with Covid-positive cowpetra ker. TECHNIQUE: PA and lateral views COMPARISON: 09/30/2019 portable AP chest FINDINGS: The lungs are clear of infiltrate or consolidation. Normal heart size. Aortic arch calcific ation. No hilar or mediastinal enlargement. There is dextroscoliosis and degenerative spurring of the thoracic spine. IMPRESSION: No active cardiopulmonary disease; resolution of bilateral infiltrates and/atelectasis si nce 09/30/2019 Reviewed, dictated and finalized at location A. IMPRESSION: No active cardiopulmonary disease; resolution of bilateral infiltra marcial and/atelectasis since 09/30/2019
== END 2019-11-01 08:52 | disposition home or self-care (01) ==
PROVIDERS: PCP Family Medicine; Visit Provider Physician Assistant
DX: J18.9 Pneumonia, unspecified organism (principal)
CPT/HCPCS: 71046

== ENCOUNTER 2020-02-21 10:14 | Outpatient (CLI) | payer OTHER, SELFPAY ==
[2020-02-21 10:59] LABS: Basophils Absolute Auto 0.1 K/mm3 (0.0-0.1); Basophils Percent Auto 1.3 % (0.2-1.2); Eosinophils Absolute Auto 0.2 K/mm3 (0-0.3); Eosinophils Percent Auto 3.4 % (0-4.4); Hemoglobin 13.9 g/dL (12.0-15.0); Immature Granulocyte Absolute 0.02 K/mm3 (0.00-0.031); Immature Granulocyte Percent A 0.3 % (0-0.5); Lymphocytes Percent Auto 25.8 % (18.3-44.2); Mean Corpuscular HGB Conc 34.8 g/dl (32-36); Mean Corpuscular Hemoglobin 29.8 pg (26-34); Mean Corpuscular Volume 85.7 fl (80-100); Mean Platelet Volume 9.8 fl (7.4-10.4); Monocytes Absolute Auto 0.5 K/mm3 (0.1-0.6); Monocytes Percent Auto 8.6 % (2.6-8.5); Neutrophils Absolute Auto 3.8 K/mm3 (1.3-6.7); Neutrophils Percent Auto 60.6 % (45.5-73.1); Platelet Count Result 286 k/mm3 (150-375); Red Blood Count 4.67 M/mm3 (4.2-5.4); Red Cell Distribution Width 12.3 % (11.5-14.5); White Blood Count 6.2 K/mm3 (4.5-10.0)
[2020-02-21 11:41] LABS: Add Urine Microscopic? NO; Appearance Urine Clear (Clear); Bilirubin Urine Negative (Negative); Blood Urine Negative (Negative); Color Urine Straw (Yellow); Glucose Urine UA Negative (Negative); Ketones Urine Negative (Negative); Leukocyte Esterase Ur Negative LEU/UL (NEGATIVE); Nitrate Urine Negative (Negative); Protein Urine Negative (Negative); Specific Grav Ur 1.008 (1.001-1.035); Urobilinogen Urine Negative mg/dL (<2.0)
[2020-02-21 11:46] LABS: Alanine Aminotransferase 60 U/L (4-35); Alkaline Phosphatase 57 U/L (38-126); Anion Gap 9 mmol/L (8-16); Aspartate Amino Transferase 42 U/L (14-36); Bilirubin,Total 0.5 mg/dL (0.2-1.3); Blood Urea Nitrogen 16 mg/dL (7-17); Calcium 9.8 mg/dL (8.4-10.2); Carbon Dioxide 25 mmol/L (22-30); Chloride 106 mmol/L (98-107); Cholesterol 157 mg/dL (0-200); Estimated Glomerular Filt Rate > 60; Glucose 98 mg/dL (65-105); HDL Direct 50 mg/dL; Potassium 4.2 mmol/L (3.4-5.0); Sodium 140 mmol/L (137-145); Triglycerides 158 mg/dL (<150)
[2020-02-21 11:56] LABS: LDL Cholesterol Direct 81 mg/dL
[2020-02-21 12:15] LABS: Thyroid Stimulating Hormone 0.587 uIU/mL (0.465-4.680)
[2020-02-21 12:44] LABS: MALB Creatinine Ratio < 19.4 mg/g (0-30); Microalbumin Urine Random < 6.0 mg/L (0-16.7)
[2020-02-25 14:13] LABS: CA 27.29 21 U/mL (<38)
== END 2020-02-21 10:15 | disposition home or self-care (01) ==
PROVIDERS: Visit Provider Internal Medicine Hematology & Oncology
DX: C50.211 Malignant neoplasm of upper-inner quadrant of right female breast (principal); Z17.0 Estrogen receptor positive status [ER+]
CPT/HCPCS: 36415; 80053; 80061; 81003; 82043; 83036; 84443; 85025; 86300

== ENCOUNTER 2020-06-03 10:28 | Outpatient (CLI) | payer OTHER, SELFPAY ==
[2020-06-03 11:43] LABS: Basophils Absolute Auto 0.1 K/mm3 (0.0-0.1); Basophils Percent Auto 1.3 % (0.2-1.2); Eosinophils Absolute Auto 0.3 K/mm3 (0-0.3); Eosinophils Percent Auto 4.7 % (0-4.4); Hematocrit 39.2 % (37.0-47.0); Hemoglobin 13.4 g/dL (12.0-15.0); Immature Granulocyte Absolute 0.01 K/mm3 (0.00-0.031); Immature Granulocyte Percent A 0.2 % (0-0.5); Lymphocytes Absolute Auto 1.63 K/mm3 (0.9-3.2); Lymphocytes Percent Auto 30.6 % (18.3-44.2); Mean Corpuscular HGB Conc 34.2 g/dl (32-36); Mean Corpuscular Hemoglobin 29.3 pg (26-34); Mean Corpuscular Volume 85.8 fl (80-100); Mean Platelet Volume 9.8 fl (7.4-10.4); Monocytes Absolute Auto 0.5 K/mm3 (0.1-0.6); Monocytes Percent Auto 9.2 % (2.6-8.5); Neutrophils Absolute Auto 2.9 K/mm3 (1.3-6.7); Platelet Count Result 257 k/mm3 (150-375); Red Blood Count 4.57 M/mm3 (4.2-5.4); White Blood Count 5.3 K/mm3 (4.5-10.0)
[2020-06-03 16:37] LABS: Alanine Aminotransferase 61 U/L (4-35); Albumin Level 4.5 g/dL (3.5-5.1); Alkaline Phosphatase 59 U/L (38-126); Anion Gap 9 mmol/L (8-16); Aspartate Amino Transferase 51 U/L (14-36); Bilirubin,Total 0.5 mg/dL (0.2-1.3); Blood Urea Nitrogen 23 mg/dL (7-17); Calcium 9.9 mg/dL (8.4-10.2); Carbon Dioxide 24 mmol/L (22-30); Chloride 106 mmol/L (98-107); Estimated Glomerular Filt Rate > 60; Glucose 138 mg/dL (65-105); Potassium 4.7 mmol/L (3.4-5.0); Sodium 139 mmol/L (137-145)
[2020-06-06 07:20] LABS: CA 15-3 7 U/mL (<32)
== END 2020-06-03 10:29 | disposition home or self-care (01) ==
PROVIDERS: Visit Provider Internal Medicine Hematology & Oncology
DX: C50.211 Malignant neoplasm of upper-inner quadrant of right female breast (principal); Z17.0 Estrogen receptor positive status [ER+]
CPT/HCPCS: 36415; 80053; 85025; 86300

== ENCOUNTER 2020-07-02 08:06 | Outpatient (CLI) | payer OTHER, SELFPAY ==
[2020-07-02 08:59] LABS: Hemoglobin A1C 7.4 % (<5.7)
[2020-07-02 09:09] LABS: Alanine Aminotransferase 48 U/L (4-35); Albumin Level 4.3 g/dL (3.5-5.1); Alkaline Phosphatase 45 U/L (38-126); Anion Gap 7 mmol/L (8-16); Aspartate Amino Transferase 45 U/L (14-36); Bilirubin,Total 0.5 mg/dL (0.2-1.3); Blood Urea Nitrogen 20 mg/dL (7-17); Carbon Dioxide 27 mmol/L (22-30); Chloride 106 mmol/L (98-107); Estimated Glomerular Filt Rate > 60; Glucose 153 mg/dL (65-105); Potassium 4.3 mmol/L (3.4-5.0); Sodium 140 mmol/L (137-145)
== END 2020-07-02 08:07 | disposition home or self-care (01) ==
PROVIDERS: Visit Provider Family Medicine
DX: E11.9 Type 2 diabetes mellitus without complications (principal)
CPT/HCPCS: 36415; 80053; 83036

== ENCOUNTER 2020-08-25 09:25 | Outpatient (CLI) | payer OTHER, SELFPAY ==
[2020-08-25 10:01] LABS: Basophils Absolute Auto 0.1 K/mm3 (0.0-0.1); Basophils Percent Auto 1.5 % (0.2-1.2); Eosinophils Absolute Auto 0.2 K/mm3 (0-0.3); Eosinophils Percent Auto 4.6 % (0-4.4); Hematocrit 36.5 % (37.0-47.0); Hemoglobin 12.7 g/dL (12.0-15.0); Immature Granulocyte Absolute 0.02 K/mm3 (0.00-0.031); Immature Granulocyte Percent A 0.5 % (0-0.5); Lymphocytes Absolute Auto 1.14 K/mm3 (0.9-3.2); Lymphocytes Percent Auto 27.7 % (18.3-44.2); Mean Corpuscular HGB Conc 34.8 g/dl (32-36); Mean Corpuscular Hemoglobin 30.1 pg (26-34); Mean Corpuscular Volume 86.5 fl (80-100); Mean Platelet Volume 10.1 fl (7.4-10.4); Monocytes Absolute Auto 0.5 K/mm3 (0.1-0.6); Monocytes Percent Auto 11.9 % (2.6-8.5); Neutrophils Absolute Auto 2.2 K/mm3 (1.3-6.7); Neutrophils Percent Auto 53.8 % (45.5-73.1); Platelet Count Result 222 k/mm3 (150-375); Red Blood Count 4.22 M/mm3 (4.2-5.4); White Blood Count 4.1 K/mm3 (4.5-10.0)
[2020-08-25 10:22] LABS: Add Urine Microscopic? YES; Appearance Urine Clear (Clear); Bilirubin Urine Negative (Negative); Blood Urine Negative (Negative); Color Urine Yellow (Yellow); Glucose Urine UA 2+ mg/dL (Negative); Ketones Urine Negative (Negative); Leukocyte Esterase Ur Negative LEU/UL (NEGATIVE); Nitrate Urine Negative (Negative); Protein Urine Negative (Negative); Specific Grav Ur 1.015 (1.001-1.035); Squamous Epithelial Cell Urine Few /hpf (Few); Urobilinogen Urine Negative mg/dL (<2.0); WBC Urine 0-3 /hpf (0-3)
[2020-08-25 10:23] LABS: Alanine Aminotransferase 58 U/L (4-35); Albumin Level 4.2 g/dL (3.5-5.1); Alkaline Phosphatase 53 U/L (38-126); Amylase 48 U/L (30-110); Anion Gap 6 mmol/L (8-16); Aspartate Amino Transferase 37 U/L (14-36); Bilirubin,Total 0.4 mg/dL (0.2-1.3); Blood Urea Nitrogen 16 mg/dL (7-17); Calcium 9.1 mg/dL (8.4-10.2); Carbon Dioxide 26 mmol/L (22-30); Chloride 107 mmol/L (98-107); Estimated Glomerular Filt Rate > 60; Glucose 196 mg/dL (65-105); Lipase 81 U/L (23-300); Potassium 4.3 mmol/L (3.4-5.0); Sodium 139 mmol/L (137-145)
[2020-08-30 06:36] LABS: CA 15-3 6 U/mL (<32)
== END 2020-08-25 09:26 | disposition home or self-care (01) ==
PROVIDERS: PCP Family Medicine; Referring Provider Internal Medicine Hematology & Oncology; Visit Provider Physician Assistant
DX: E11.65 Type 2 diabetes mellitus with hyperglycemia (principal); I10 Essential (primary) hypertension; N39.0 Urinary tract infection, site not specified; Z79.4 Long term (current) use of insulin; C50.211 Malignant neoplasm of upper-inner quadrant of right female breast; Z17.0 Estrogen receptor positive status [ER+]
CPT/HCPCS: 36415; 80053; 81001; 82150; 83690; 85025; 86300; 87086

== ENCOUNTER 2020-11-26 09:26 | Outpatient (CLI) | payer OTHER, SELFPAY ==
[2020-11-26 10:01] LABS: Alanine Aminotransferase 49 U/L (4-35); Albumin Level 4.5 g/dL (3.5-5.1); Alkaline Phosphatase 57 U/L (38-126); Anion Gap 11 mmol/L (8-16); Aspartate Amino Transferase 42 U/L (14-36); Bilirubin,Total 0.5 mg/dL (0.2-1.3); Blood Urea Nitrogen 14 mg/dL (7-17); Calcium 9.7 mg/dL (8.4-10.2); Carbon Dioxide 24 mmol/L (22-30); Chloride 107 mmol/L (98-107); Estimated Glomerular Filt Rate > 60; Glucose 168 mg/dL (65-105); Potassium 4.7 mmol/L (3.4-5.0); Sodium 142 mmol/L (137-145)
[2020-11-26 10:04] LABS: Hemoglobin A1C 7.8 % (<5.7)
== END 2020-11-26 09:27 | disposition home or self-care (01) ==
PROVIDERS: PCP Family Medicine; Visit Provider Physician Assistant
DX: E11.65 Type 2 diabetes mellitus with hyperglycemia (principal)
CPT/HCPCS: 36415; 80053; 83036

== ENCOUNTER 2020-12-29 08:04 | Outpatient (CLI) | payer OTHER, SELFPAY ==
[2020-12-29 08:25] LABS: Basophils Absolute Auto 0.1 K/mm3 (0.0-0.1); Basophils Percent Auto 1.4 % (0.2-1.2); Eosinophils Absolute Auto 0.3 K/mm3 (0-0.3); Eosinophils Percent Auto 5.1 % (0-4.4); Hematocrit 39.7 % (37.0-47.0); Hemoglobin 13.5 g/dL (12.0-15.0); Immature Granulocyte Absolute 0.03 K/mm3 (0.00-0.031); Immature Granulocyte Percent A 0.6 % (0-0.5); Lymphocytes Absolute Auto 1.39 K/mm3 (0.9-3.2); Lymphocytes Percent Auto 27.5 % (18.3-44.2); Mean Corpuscular Hemoglobin 29.6 pg (26-34); Mean Corpuscular Volume 87.1 fl (80-100); Mean Platelet Volume 10.1 fl (7.4-10.4); Monocytes Absolute Auto 0.4 K/mm3 (0.1-0.6); Monocytes Percent Auto 8.7 % (2.6-8.5); Neutrophils Absolute Auto 2.9 K/mm3 (1.3-6.7); Neutrophils Percent Auto 56.7 % (45.5-73.1); Platelet Count Result 235 k/mm3 (150-375); Red Blood Count 4.56 M/mm3 (4.2-5.4); Red Cell Distribution Width 12.2 % (11.5-14.5); White Blood Count 5.1 K/mm3 (4.5-10.0)
[2020-12-29 08:35] LABS: Alanine Aminotransferase 52 U/L (4-35); Albumin Level 4.5 g/dL (3.5-5.1); Alkaline Phosphatase 61 U/L (38-126); Anion Gap 11 mmol/L (8-16); Aspartate Amino Transferase 45 U/L (14-36); Bilirubin,Total 0.5 mg/dL (0.2-1.3); Blood Urea Nitrogen 15 mg/dL (7-17); Calcium 9.8 mg/dL (8.4-10.2); Carbon Dioxide 24 mmol/L (22-30); Chloride 103 mmol/L (98-107); Estimated Glomerular Filt Rate > 60; Glucose 208 mg/dL (65-105); Potassium 4.4 mmol/L (3.4-5.0); Sodium 138 mmol/L (137-145)
[2021-01-04 13:54] LABS: CA 15-3 13 U/mL (<32)
== END 2020-12-29 08:05 | disposition home or self-care (01) ==
PROVIDERS: PCP Family Medicine; Visit Provider Internal Medicine Hematology & Oncology
DX: C50.211 Malignant neoplasm of upper-inner quadrant of right female breast (principal); Z17.0 Estrogen receptor positive status [ER+]
CPT/HCPCS: 36415; 80053; 85025; 86300

== ENCOUNTER 2021-01-23 02:05 | Emergency (ER) | payer OTHER, SELFPAY ==
--- NOTE | ~2021-01-23 | CT_ITS ---
EXAMINATION: CT abdomen pelvis w con DATE: 01/23/2021 04:02 INDICATION: Right lower quadrant and right flank pain. Dysuria, urinary frequency. Nausea. TECHNIQUE: Computed tomography (CT) of the abdomen and pelvis was performed with 100 cc Omnipaque 350 intravenous contrast. Automated exposure control and iterative reconstruction technique were employe d. Exam dose: 1163.46 mGy-cm total exam DLP. COMPARISON: 06/10/2017 CT abdomen pelvis FINDINGS: There is mild discoid atelectasis in the lower lobes, greater on the left. Trace pericardial fluid. No pleural effusion. Diffuse hepatic steatosis. No hepatic space-occupying mass lesion. The gallbladder is present. No maikel e duct or pancreatic duct dilatation. No pancreatic mass lesion or calcification. Normal splenic size . Normal morphology of the adrenal glands. There is a 3 mm right ureterovesical junction calculus with mild right hydroureteronephrosis. No othe r urinary tract calculus. No left hydroureteronephrosis. Normal caliber of the abdominal aorta. No intraperitoneal or retroperitoneal or pelvic mass lesion or adenopathy or ascites. The urinary bladder is unremarkable. Status post hysterectomy. Normal appendix. Minimal diverticulosis of the colon; no CT evidence of diverticulitis. There is circ umferential soft tissue thickening of the wall of the sigmoid colon, likely due to underdistention. N o bowel obstruction, bowel wall thickening, pneumatosis or intraperitoneal free air is detected other hammer. There is skin thickening along the lower anterior abdominal wall bilaterally; recommend clinical jerica elation for cellulitis. No suspicious osteolytic or osteoblastic lesions are noted. Degenerative change of the lower thoracic spine. Moderately severe degenerative disc disease at L5-S1 . IMPRESSION: Diffuse hepatic steatosis 3 mm right ureterovesical junction calculus with mild right hydroureteronephrosis Minimal colonic diverticulosis; no evidence of diverticulitis Skin thickening along the lower anterior abdominal wall; recommend clinical correlation for celluliti s Reviewed, dictated and finalized at [facility] A. Reviewed, dictated and finalized at location D. IMPRESSION: Diffuse hepatic steatosis 3 mm right ureterovesical junction calculus with mild right hydroureteronephros is Minimal colonic diverticulosis; no evidence of diverticulitis Skin thickening along the lower anterior abdominal wall; recommend clinical cor relation for cellulitis
[2021-01-23 02:14] VITALS: BP 166/69; PULSE 75; RESP 18; TEMP 36.4; O2SAT 97
--- NOTE | 2021-01-23 02:30 | PC.NURSE ---
family member at bedside. pt resting w/ call light in reach.
--- NOTE | 2021-01-23 02:32 | ED.FEMALEGU ---
HPI - Female Genitourinary General Chief complaint: Urogenital-Female Stated complaint: Unspecified Time Seen by Provider: 01/23/21 02:23 History of Present Illness HPI Narrative: Dysuria, urinary frequency since about 2200 yesterday. Associated with nausea and mild RLQ/flank pain. No fever, hematuria, diarrhea, constipation. Related Data Home Medications Medication Instructions Recorded Confirmed multivitamin 1 tablet PO DAILY 04/10/19 12/01/20 anastrozole 1 mg PO DAILY 04/27/19 12/01/20 Allergies Allergy/AdvReac Type Severity Reaction Status Date / Time gold Au 198 Allergy Severe RASH,EYE Verified 01/23/21 02:22 SWELLING pioglitazone Allergy Unknown Unknown Verified 01/23/21 02:22 codeine AdvReac Intermediate Nausea Verified 01/23/21 02:22 Review of Systems Review of Systems: All systems reviewed & are unremarkable except as noted in HPI and below Constitutional: Constitutional: Reports no additional constitutional complaints ENT: Reports system reviewed and no additional complaints, except as documented Cardiovascular: Cardiovascular: Denies chest pain Respiratory: Respiratory: Denies dyspnea Gastrointestinal: Gastrointestinal: Denies abdominal pain, Denies constipation, Denies diarrhea, Reports nausea and Denies vomiting Genitourinary: Genitourinary: Denies hematuria, Reports nocturia, Reports dysuria and Reports flank pain Neurologic: Reports system reviewed and no additional complaints, except as documented [facility] Past Medical History Medical History Breast cancer, right 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 Status post partial mastectomy with sentinel lymph node biopsy per Dr. Mendoza. She completed radiation treatment from 02/05/2019 to 03/05/[address] Aldridge. She is now on Arimidex and follows with Dr. Garza. Diverticulosis of intestine, part unspecified, without perforation or abscess with bleeding Dyslipidemia Essential (primary) hypertension History of branchial cleft cyst Long-term current use of insulin for diabetes mellitus Hemoglobin A1c was 8.0% in June 2019. XAVIER on CPAP Osteopenia Primary osteoarthritis, right hand Surgical History Surgical History History of dilation and curettage History of hammertoe correction History of hysterectomy History of partial mastectomy of right breast With sentinel lymph node biopsy, negative margins. History of tonsillectomy History of tubal ligation Family History Family History Mother Hypertension Father Cerebrovascular accident Family history of malignant neoplasm Social History Social History Social History: The patient is and lives with her in [place], [place]. She works at a [employer]. She designates her , Damon, as her surrogate decision maker and she wishes to be a full code. She is a lifelong nonsmoker and denies alcohol and drug abuse. Smoking status: Never smoker Second hand tobacco smoke exposure: No Alcohol intake: current Alcohol use details: occasional Substance use: never Substance use type: does not use Gender identity (if verbalized by the patient): Female Spiritual care concerns: Yes (asad visit) Agree to blood products: Yes Exam Const: General: healthy appearing, no acute distress and alert Orientation/consciousness: patient oriented x3 HENMT: Head: normal to inspection Neck: Neck: normal visual inspection Resp: Effort & Inspection: normal respiratory effort Auscultation: clear to auscultation bilaterally and no wheezes Cardio: Jugular venous distension: no JVD Rate: regular rate Rhythm: regular rhythm GI: Inspect
[2021-01-23 02:53] LABS: Add Urine Microscopic? YES; Appearance Urine Clear (Clear); Bilirubin Urine Negative (Negative); Blood Urine 1+ (Negative); Color Urine Colorless (Yellow); Glucose Urine UA Negative (Negative); Ketones Urine Negative (Negative); Leukocyte Esterase Ur Negative LEU/UL (Negative); Nitrate Urine Negative (Negative); Protein Urine Negative (Negative); RBC Urine 0-2 /hpf (0-2); Specific Grav Ur 1.005 (1.001-1.035); Squamous Epithelial Cell Urine Rare /hpf (Few); Urobilinogen Urine Negative mg/dL (<2.0); WBC Urine 0-3 /hpf
[2021-01-23] MEDS: PHENAZOPYRIDINE HCL 100 MG TABLET 200 MG PO (03:14)
[2021-01-23] MEDS: SODIUM CHLORIDE 0.9% IV 1,000 ML 999 ML IV CONT (03:14)
[2021-01-23 03:27] LABS: Basophils Absolute Auto 0.1 K/mm3 (0.0-0.1); Basophils Percent Auto 1.4 % (0.2-1.2); Eosinophils Absolute Auto 0.2 K/mm3 (0-0.3); Eosinophils Percent Auto 3.3 % (0-4.4); Hematocrit 38.4 % (37.0-47.0); Immature Granulocyte Absolute 0.02 K/mm3 (0.00-0.031); Immature Granulocyte Percent A 0.3 % (0-0.5); Lymphocytes Absolute Auto 1.82 K/mm3 (0.9-3.2); Lymphocytes Percent Auto 28.4 % (18.3-44.2); Mean Corpuscular HGB Conc 33.9 g/dl (32-36); Mean Corpuscular Hemoglobin 29.6 pg (26-34); Mean Corpuscular Volume 87.5 fl (80-100); Mean Platelet Volume 10.1 fl (7.4-10.4); Monocytes Absolute Auto 0.6 K/mm3 (0.1-0.6); Monocytes Percent Auto 9.2 % (2.6-8.5); Neutrophils Absolute Auto 3.7 K/mm3 (1.3-6.7); Neutrophils Percent Auto 57.4 % (45.5-73.1); Platelet Count Result 262 k/mm3 (150-375); Red Blood Count 4.39 M/mm3 (4.2-5.4); White Blood Count 6.4 K/mm3 (4.5-10.0)
[2021-01-23 03:35] LABS: Alanine Aminotransferase 57 U/L (4-35); Albumin Level 4.5 g/dL (3.5-5.1); Alkaline Phosphatase 61 U/L (38-126); Anion Gap 9 mmol/L (8-16); Aspartate Amino Transferase 38 U/L (14-36); Bilirubin,Total 0.5 mg/dL (0.2-1.3); Blood Urea Nitrogen 17 mg/dL (7-17); Calcium 10.2 mg/dL (8.4-10.2); Carbon Dioxide 26 mmol/L (22-30); Chloride 105 mmol/L (98-107); Estimated CRCL calculation 73 ml/min; Estimated Glomerular Filt Rate > 60; Glucose 179 mg/dL (65-110); Lipase 85 U/L (23-300); Potassium 3.8 mmol/L (3.4-5.0); Sodium 140 mmol/L (137-145)
[2021-01-23 05:23] VITALS: BP 157/72; PULSE 94; RESP 17; O2SAT 99
== END 2021-01-23 06:05 | disposition home or self-care (01) ==
PROVIDERS: Emergency Provider Emergency Medicine; PCP Family Medicine
DX: N13.2 Hydronephrosis with renal and ureteral calculous obstruction (principal); Z85.3 Personal history of malignant neoplasm of breast; Z92.3 Personal history of irradiation; E78.5 Hyperlipidemia, unspecified; I10 Essential (primary) hypertension; G47.33 Obstructive sleep apnea (adult) (pediatric); E11.9 Type 2 diabetes mellitus without complications; Z79.4 Long term (current) use of insulin; M85.80 Other specified disorders of bone density and structure, unspecified site; M19.041 Primary osteoarthritis, right hand; Z90.11 Acquired absence of right breast and nipple; K57.90 Diverticulosis of intestine, part unspecified, without perforation or abscess without bleeding; K76.0 Fatty (change of) liver, not elsewhere classified
CPT/HCPCS: 36415; 74177; 80053; 81001; 83690; 85025; 96360; 99284; A9270; J7030; Q9967

== ENCOUNTER 2021-04-28 07:48 | Outpatient (CLI) | payer OTHER, SELFPAY ==
[2021-04-28 08:25] LABS: Basophils Absolute Auto 0.1 K/mm3 (0.0-0.1); Basophils Percent Auto 1.8 % (0.2-1.2); Eosinophils Absolute Auto 0.2 K/mm3 (0-0.3); Eosinophils Percent Auto 4.2 % (0-4.4); Hematocrit 38.2 % (37.0-47.0); Hemoglobin 13.3 g/dL (12.0-15.0); Immature Granulocyte Absolute 0.01 K/mm3 (0.00-0.031); Immature Granulocyte Percent A 0.2 % (0-0.5); Lymphocytes Absolute Auto 1.21 K/mm3 (0.9-3.2); Lymphocytes Percent Auto 26.9 % (18.3-44.2); Mean Corpuscular HGB Conc 34.8 g/dl (32-36); Mean Corpuscular Volume 86.2 fl (80-100); Mean Platelet Volume 10.1 fl (7.4-10.4); Monocytes Absolute Auto 0.4 K/mm3 (0.1-0.6); Monocytes Percent Auto 9.8 % (2.6-8.5); Neutrophils Absolute Auto 2.6 K/mm3 (1.3-6.7); Neutrophils Percent Auto 57.1 % (45.5-73.1); Platelet Count Result 254 k/mm3 (150-375); Red Blood Count 4.43 M/mm3 (4.2-5.4); White Blood Count 4.5 K/mm3 (4.5-10.0)
[2021-04-28 08:38] LABS: Alanine Aminotransferase 48 U/L (4-35); Albumin Level 4.4 g/dL (3.5-5.1); Alkaline Phosphatase 59 U/L (38-126); Anion Gap 8 mmol/L (8-16); Aspartate Amino Transferase 36 U/L (14-36); Bilirubin,Total 0.5 mg/dL (0.2-1.3); Blood Urea Nitrogen 16 mg/dL (7-17); Calcium 9.5 mg/dL (8.4-10.2); Carbon Dioxide 25 mmol/L (22-30); Chloride 107 mmol/L (98-107); Cholesterol 133 mg/dL (0-200); Estimated Glomerular Filt Rate > 60; Glucose 213 mg/dL (65-110); HDL Direct 40 mg/dL; Potassium 4.3 mmol/L (3.4-5.0); Sodium 140 mmol/L (137-145); Triglycerides 158 mg/dL (<150)
[2021-04-28 08:47] LABS: LDL Cholesterol Direct 71 mg/dL
[2021-04-28 09:06] LABS: Thyroid Stimulating Hormone 0.363 uIU/mL (0.465-4.680)
[2021-04-28 12:58] LABS: Hemoglobin A1C 8.3 % (<5.7)
[2021-05-01 06:14] LABS: CA 15-3 9 U/mL (<32)
== END 2021-04-28 07:49 | disposition home or self-care (01) ==
LOC: ANHLAB 07:50
PROVIDERS: PCP Family Medicine; Visit Provider Family Medicine
DX: E11.65 Type 2 diabetes mellitus with hyperglycemia (principal); E78.5 Hyperlipidemia, unspecified; I10 Essential (primary) hypertension; Z00.00 Encounter for general adult medical examination without abnormal findings; C50.211 Malignant neoplasm of upper-inner quadrant of right female breast; Z17.0 Estrogen receptor positive status [ER+]
CPT/HCPCS: 36415; 80053; 80061; 83036; 84443; 85025; 86300

== ENCOUNTER 2021-09-29 08:17 | Outpatient (CLI) | payer OTHER, SELFPAY ==
[2021-09-29 09:01] LABS: Hemoglobin A1C 7.1 % (<5.7)
[2021-09-29 09:02] LABS: Alanine Aminotransferase 35 U/L (4-35); Albumin Level 4.7 g/dL (3.5-5.1); Alkaline Phosphatase 56 U/L (38-126); Anion Gap 10 mmol/L (8-16); Aspartate Amino Transferase 32 U/L (14-36); Bilirubin,Total 0.4 mg/dL (0.2-1.3); Blood Urea Nitrogen 17 mg/dL (7-17); Calcium 9.3 mg/dL (8.4-10.2); Carbon Dioxide 24 mmol/L (22-30); Chloride 105 mmol/L (98-107); Estimated Glomerular Filt Rate > 60; Glucose 164 mg/dL (65-110); Potassium 4.3 mmol/L (3.4-5.0); Sodium 139 mmol/L (137-145)
[2021-09-29 09:32] LABS: Thyroid Stimulating Hormone 0.487 uIU/mL (0.465-4.680)
== END 2021-09-29 08:18 | disposition home or self-care (01) ==
PROVIDERS: PCP Family Medicine; Visit Provider Physician Assistant
DX: R79.89 Other specified abnormal findings of blood chemistry (principal); E11.65 Type 2 diabetes mellitus with hyperglycemia
CPT/HCPCS: 36415; 80053; 83036; 84443

== ENCOUNTER 2021-10-23 08:06 | Outpatient (CLI) | payer OTHER, SELFPAY ==
[2021-10-23 08:29] LABS: Basophils Absolute Auto 0.1 K/mm3 (0.0-0.1); Basophils Percent Auto 1.2 % (0.2-1.2); Eosinophils Absolute Auto 0.2 K/mm3 (0-0.3); Eosinophils Percent Auto 3.6 % (0-4.4); Hematocrit 39.3 % (37.0-47.0); Hemoglobin 13.2 g/dL (12.0-15.0); Immature Granulocyte Absolute 0.02 K/mm3 (0.00-0.031); Immature Granulocyte Percent A 0.4 % (0-0.5); Lymphocytes Absolute Auto 1.39 K/mm3 (0.9-3.2); Lymphocytes Percent Auto 27.7 % (18.3-44.2); Mean Corpuscular HGB Conc 33.6 g/dl (32-36); Mean Corpuscular Hemoglobin 29.7 pg (26-34); Mean Corpuscular Volume 88.3 fl (80-100); Mean Platelet Volume 9.9 fl (7.4-10.4); Monocytes Absolute Auto 0.5 K/mm3 (0.1-0.6); Neutrophils Absolute Auto 2.9 K/mm3 (1.3-6.7); Neutrophils Percent Auto 57.1 % (45.5-73.1); Platelet Count Result 247 k/mm3 (150-375); Red Blood Count 4.45 M/mm3 (4.2-5.4); Red Cell Distribution Width 12.2 % (11.5-14.5)
[2021-10-23 08:36] LABS: Alanine Aminotransferase 38 U/L (4-35); Albumin Level 4.5 g/dL (3.5-5.1); Alkaline Phosphatase 56 U/L (38-126); Anion Gap 7 mmol/L (8-16); Aspartate Amino Transferase 35 U/L (14-36); Bilirubin,Total 0.4 mg/dL (0.2-1.3); Blood Urea Nitrogen 15 mg/dL (7-17); Calcium 9.2 mg/dL (8.4-10.2); Carbon Dioxide 25 mmol/L (22-30); Chloride 107 mmol/L (98-107); Estimated Glomerular Filt Rate > 60; Glucose 189 mg/dL (65-110); Potassium 4.2 mmol/L (3.4-5.0); Sodium 139 mmol/L (137-145)
[2021-10-27 21:26] LABS: CA 15-3 9 U/mL (<32)
== END 2021-10-23 08:07 | disposition home or self-care (01) ==
PROVIDERS: PCP Family Medicine; Visit Provider Internal Medicine Hematology & Oncology
DX: C50.211 Malignant neoplasm of upper-inner quadrant of right female breast (principal); Z17.0 Estrogen receptor positive status [ER+]
CPT/HCPCS: 36415; 80053; 85025; 86300

== ENCOUNTER 2021-10-24 17:45 | Emergency (ER) | payer OTHER, SELFPAY ==
[2021-10-24] VITALS (10 sets, daily range): BP systolic 143–167; BP diastolic 64–80; PULSE 72–82; RESP 13–19; TEMP 36; O2SAT 94–100
--- NOTE | ~2021-10-24 | XR_ITS ---
EXAMINATION: XR chest 2V Exam Date/Time: 10/24/2021 18:25 CDT CLINICAL HISTORY: CP,nausea,dizziness all lasted approx an hour Comparison: 11/01/2019. RESULT: Lines, tubes, and devices: None. Lungs and pleura: Clear. Cardiomediastinal silhouette: Stable cardiomediastinal silhouette. Other: No acute osseous or upper abdominal finding. IMPRESSION: No acute cardiopulmonary process Reviewed, dictated and finalized at location K.
--- NOTE | 2021-10-24 17:48 | ECG_ITS ---
Measurements Intervals [place] Rate: 73 P: 1 NC: 143 QRS: 5 QRSD: 94 T: 10 QT: 391 QTc: 432 Interpretive Statements SINUS RHYTHM VOLTAGE CRITERIA FOR LVH CONSIDER INFERIOR INFARCT, AGE INDETERMINATE ABNORMAL ECG Electronically Signed On 10-26-2021 7:46:01 CDT by Scott Combs D.O.
[2021-10-24 18:02] LABS: Basophils Absolute Auto 0.1 K/mm3 (0.0-0.1); Basophils Percent Auto 0.9 % (0.2-1.2); Eosinophils Absolute Auto 0.2 K/mm3 (0-0.3); Eosinophils Percent Auto 1.8 % (0-4.4); Hematocrit 39.8 % (37.0-47.0); Hemoglobin 13.7 g/dL (12.0-15.0); Immature Granulocyte Absolute 0.03 K/mm3 (0.00-0.031); Immature Granulocyte Percent A 0.3 % (0-0.5); Lymphocytes Absolute Auto 1.84 K/mm3 (0.9-3.2); Mean Corpuscular HGB Conc 34.4 g/dl (32-36); Mean Corpuscular Hemoglobin 30.2 pg (26-34); Mean Corpuscular Volume 87.7 fl (80-100); Mean Platelet Volume 10.3 fl (7.4-10.4); Monocytes Absolute Auto 0.7 K/mm3 (0.1-0.6); Monocytes Percent Auto 7.6 % (2.6-8.5); Neutrophils Percent Auto 68.4 % (45.5-73.1); Platelet Count Result 254 k/mm3 (150-375); Red Blood Count 4.54 M/mm3 (4.2-5.4); Red Cell Distribution Width 12.2 % (11.5-14.5); White Blood Count 8.8 K/mm3 (4.5-10.0)
--- NOTE | 2021-10-24 18:11 | ED.CHESTPAIN ---
HPI - Chest Pain General Chief Complaint: Chest Pain Stated Complaint: chest pressure Time Seen by Provider: 10/24/21 18:10 Source: patient, family, EMS and RN notes reviewed Mode of arrival: EMS Limitations: no limitations History of Present Illness HPI narrative: Patient is 61 years old white female was working in her yard suddenly felt dizzy, everything was spinning, associated with nausea subsequently started having heaviness at left side of the chest, generally weak, no energy, could not stand up because of the dizziness, felt awful. Symptom resolved within 45 to 60 minutes. Currently is asymptomatic. Patient denies having similar symptoms. History of diabetes, hypertension, hyperlipidemia, no family history of coronary artery disease, patient does not smoke drinks occasionally, no drug abuse. She denies any fever, chills, abdominal pain, back pain, shortness of breath. Related Data Home Medications Medication Instructions Recorded Confirmed multivitamin 1 tablet PO DAILY 04/10/19 10/01/21 anastrozole 1 mg PO DAILY 04/27/19 10/01/21 Allergies Allergy/AdvReac Type Severity Reaction Status Date / Time gold Au 198 Allergy Severe RASH,EYE Verified 10/24/21 17:51 SWELLING pioglitazone Allergy Unknown Unknown Verified 10/24/21 17:51 codeine AdvReac Intermediate Nausea Verified 10/24/21 17:51 Review of Systems Review of Systems: All systems reviewed & are unremarkable except as noted in HPI and below PMFSH Past Medical History Medical History Breast cancer, right Pathologic stage IA (T1a N0 M0) grade 1 invasive tubular carcinoma, ER/TX positive, HER2 negative, 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 Status post partial mastectomy with sentinel lymph node biopsy per Dr. Mendoza. She completed radiation treatment from 02/05/2019 to 03/05/[address] Aldridge. She is now on Arimidex and follows with Dr. Garza. Diverticulosis of intestine, part unspecified, without perforation or abscess with bleeding Dyslipidemia Essential (primary) hypertension History of branchial cleft cyst Long-term current use of insulin for diabetes mellitus Hemoglobin A1c was 8.0% in June 2019. XAVIER on CPAP Osteopenia Primary osteoarthritis, right hand Surgical History Surgical History History of dilation and curettage History of hammertoe correction History of hysterectomy History of partial mastectomy of right breast With sentinel lymph node biopsy, negative margins. History of tonsillectomy History of tubal ligation Family History Family History Mother Hypertension Father Cerebrovascular accident Family history of malignant neoplasm Social History Social History Social History: The patient is and lives with her in [place], [place]. She works at a [employer]. She designates her , Damon, as her surrogate decision maker and she wishes to be a full code. She is a lifelong nonsmoker and denies alcohol and drug abuse. Smoking status: Never smoker Second hand tobacco smoke exposure: No Alcohol intake: current Alcohol use details: occasional Substance use: never Substance use type: does not use Gender identity (if verbalized by the patient): Female Spiritual care concerns: Yes (asad visit) Agree to blood products: Yes Exam Narrative: General appearance: Well-developed, well-nourished Skin: Normal color Head: Normocephalic, nontraumatic Eyes: Clear conjunctiva ENT: Oropharynx normal, ears normal, nose normal Neck: Supple, nontender Chest and respiratory: Airway patent, no respiratory distress, no accessory muscle use Heart: Regular rate/rhythm Abdomen: Soft, nontender, no organomegaly, quiet bowel sounds Vascular: Normal peripheral pulses, normal capillary refill
[2021-10-24 18:12] LABS: INR 1.1; Partial Thromboplastin Time 30.3 SECONDS (22.3-36.8); Prothrombin Time 13.5 Seconds (11.1-14.7)
[2021-10-24 18:19] LABS: Alanine Aminotransferase 39 U/L (4-35); Albumin Level 4.9 g/dL (3.5-5.1); Alkaline Phosphatase 73 U/L (38-126); Anion Gap 10 mmol/L (8-16); Aspartate Amino Transferase 46 U/L (14-36); Bilirubin,Total 0.6 mg/dL (0.2-1.3); Blood Urea Nitrogen 21 mg/dL (7-17); Calcium 9.3 mg/dL (8.4-10.2); Carbon Dioxide 20 mmol/L (22-30); Chloride 107 mmol/L (98-107); Estimated CRCL calculation 73 ml/min; Estimated Glomerular Filt Rate > 60; Glucose 161 mg/dL (65-110); Lipase 98 U/L (23-300); Potassium 3.8 mmol/L (3.4-5.0); Sodium 137 mmol/L (137-145)
[2021-10-24 18:29] LABS: Troponin I < 0.012 ng/mL (0.000-0.034)
[2021-10-24 18:37] LABS: D Dimer 0.53 ug/mL (<0.48)
[2021-10-24 19:06] LABS: NT Pro B Type Natriuretic Pept 56 pg/mL (5-100)
--- NOTE | 2021-10-24 19:16 | PC.NURSE ---
Report given to JUAN Jean.
--- NOTE | 2021-10-24 19:30 | PC.NURSE ---
Report received and care of pt assumed at this time. Pt upright and alert on stretcher, family at bedside.
[2021-10-24 19:43] LABS: Basophils Absolute Auto 0.1 K/mm3 (0.0-0.1); Basophils Percent Auto 0.9 % (0.2-1.2); Eosinophils Absolute Auto 0.1 K/mm3 (0-0.3); Hematocrit 36.5 % (37.0-47.0); Hemoglobin 12.5 g/dL (12.0-15.0); Immature Granulocyte Absolute 0.04 K/mm3 (0.00-0.031); Immature Granulocyte Percent A 0.4 % (0-0.5); Lymphocytes Absolute Auto 1.68 K/mm3 (0.9-3.2); Lymphocytes Percent Auto 16.7 % (18.3-44.2); Mean Corpuscular HGB Conc 34.2 g/dl (32-36); Mean Corpuscular Hemoglobin 30.2 pg (26-34); Mean Corpuscular Volume 88.2 fl (80-100); Mean Platelet Volume 10.3 fl (7.4-10.4); Monocytes Absolute Auto 0.6 K/mm3 (0.1-0.6); Monocytes Percent Auto 6.2 % (2.6-8.5); Neutrophils Absolute Auto 7.6 K/mm3 (1.3-6.7); Neutrophils Percent Auto 74.8 % (45.5-73.1); Platelet Count Result 265 k/mm3 (150-375); Red Blood Count 4.14 M/mm3 (4.2-5.4); Red Cell Distribution Width 12.1 % (11.5-14.5); White Blood Count 10.1 K/mm3 (4.5-10.0)
--- NOTE | 2021-10-24 21:50 | ECG_ITS ---
Measurements Intervals [place] Rate: 68 P: -2 LA: 149 QRS: 11 QRSD: 90 T: 15 QT: 404 QTc: 432 Interpretive Statements SINUS RHYTHM LEFT VENTRICULAR HYPERTROPHY BORDERLINE ECG Electronically Signed On 10-25-2021 8:51:42 CDT by Scott Combs D.O.
[2021-10-24 21:57] LABS: Troponin I < 0.012 ng/mL (0.000-0.034)
== END 2021-10-24 23:11 | disposition home or self-care (01) ==
PROVIDERS: Emergency Medicine; Emergency Provider Emergency Medicine; PCP Family Medicine
DX: H81.10 Benign paroxysmal vertigo, unspecified ear (principal); R07.9 Chest pain, unspecified; F41.9 Anxiety disorder, unspecified; E11.9 Type 2 diabetes mellitus without complications; I10 Essential (primary) hypertension; E78.5 Hyperlipidemia, unspecified; M85.80 Other specified disorders of bone density and structure, unspecified site; G47.33 Obstructive sleep apnea (adult) (pediatric); Z85.3 Personal history of malignant neoplasm of breast; Z92.3 Personal history of irradiation; Z90.11 Acquired absence of right breast and nipple; Z79.4 Long term (current) use of insulin; Z79.899 Other long term (current) drug therapy; R94.31 Abnormal electrocardiogram [ECG] [EKG]; I51.7 Cardiomegaly
CPT/HCPCS: 36415; 71046; 80053; 83690; 83880; 84484; 85025; 85380; 85610; 85730; 93005; 99284

== ENCOUNTER 2022-02-01 07:30 | Outpatient (CLI) | payer OTHER, SELFPAY ==
[2022-02-01 08:20] LABS: Alanine Aminotransferase 40 U/L (6-35); Albumin Level 4.5 g/dL (3.5-5.1); Alkaline Phosphatase 60 U/L (38-126); Anion Gap 8 mmol/L (8-16); Aspartate Amino Transferase 34 U/L (14-36); Bilirubin,Total 0.4 mg/dL (0.2-1.3); Blood Urea Nitrogen 16 mg/dL (7-17); Calcium 9.4 mg/dL (8.4-10.2); Carbon Dioxide 26 mmol/L (22-30); Chloride 103 mmol/L (98-107); Estimated Glomerular Filt Rate > 60; Glucose 225 mg/dL (65-110); Potassium 4.1 mmol/L (3.4-5.0); Sodium 137 mmol/L (137-145)
== END 2022-02-01 07:31 | disposition home or self-care (01) ==
LOC: ANHLAB 07:31
PROVIDERS: PCP Family Medicine; Visit Provider Physician Assistant
DX: E11.65 Type 2 diabetes mellitus with hyperglycemia (principal); I10 Essential (primary) hypertension
CPT/HCPCS: 36415; 80053; 83036

== ENCOUNTER 2022-04-21 08:58 | Outpatient (CLI) | payer OTHER, SELFPAY ==
[2022-04-21 10:08] LABS: Alanine Aminotransferase 46 U/L (6-35); Albumin Level 4.8 g/dL (3.5-5.1); Alkaline Phosphatase 54 U/L (38-126); Anion Gap 12 mmol/L (8-16); Aspartate Amino Transferase 35 U/L (14-36); Basophils Absolute Auto 0.1 K/mm3 (0.0-0.1); Basophils Percent Auto 1.3 % (0.2-1.2); Bilirubin,Total 0.4 mg/dL (0.2-1.3); Blood Urea Nitrogen 13 mg/dL (7-17); Calcium 9.1 mg/dL (8.4-10.2); Carbon Dioxide 25 mmol/L (22-30); Chloride 103 mmol/L (98-107); Eosinophils Absolute Auto 0.2 K/mm3 (0-0.3); Eosinophils Percent Auto 3.9 % (0-4.4); Estimated Glomerular Filt Rate > 60; Glucose 161 mg/dL (65-110); Hematocrit 40.1 % (37.0-47.0); Hemoglobin 13.7 g/dL (12.0-15.0); Immature Granulocyte Absolute 0.02 K/mm3 (0.00-0.031); Immature Granulocyte Percent A 0.4 % (0-0.5); Lymphocytes Absolute Auto 1.37 K/mm3 (0.9-3.2); Lymphocytes Percent Auto 25.3 % (18.3-44.2); Mean Corpuscular HGB Conc 34.2 g/dl (32-36); Mean Corpuscular Hemoglobin 29.5 pg (26-34); Mean Corpuscular Volume 86.4 fl (80-100); Mean Platelet Volume 10.2 fl (7.4-10.4); Monocytes Absolute Auto 0.4 K/mm3 (0.1-0.6); Monocytes Percent Auto 7.2 % (2.6-8.5); Neutrophils Absolute Auto 3.4 K/mm3 (1.3-6.7); Neutrophils Percent Auto 61.9 % (45.5-73.1); Platelet Count Result 276 k/mm3 (150-375); Potassium 4.5 mmol/L (3.4-5.0); Red Blood Count 4.64 M/mm3 (4.2-5.4); Red Cell Distribution Width 12.1 % (11.5-14.5); Sodium 140 mmol/L (137-145); White Blood Count 5.4 K/mm3 (4.5-10.0)
[2022-04-25 03:33] LABS: CA 15-3 9 U/mL (<32)
== END 2022-04-21 08:59 | disposition home or self-care (01) ==
PROVIDERS: PCP Family Medicine; Visit Provider Internal Medicine Hematology & Oncology
DX: C50.211 Malignant neoplasm of upper-inner quadrant of right female breast (principal); Z17.0 Estrogen receptor positive status [ER+]
CPT/HCPCS: 36415; 80053; 85025; 86300

== ENCOUNTER 2022-06-07 07:49 | Outpatient (CLI) | payer OTHER, SELFPAY ==
[2022-06-07 08:41] LABS: Alanine Aminotransferase 38 U/L (6-35); Albumin Level 4.7 g/dL (3.5-5.1); Alkaline Phosphatase 50 U/L (38-126); Anion Gap 10 mmol/L (8-16); Aspartate Amino Transferase 31 U/L (14-36); Bilirubin,Total 0.5 mg/dL (0.2-1.3); Blood Urea Nitrogen 16 mg/dL (7-17); Carbon Dioxide 24 mmol/L (22-30); Chloride 104 mmol/L (98-107); Estimated Glomerular Filt Rate > 60; Glucose 188 mg/dL (65-110); Potassium 3.9 mmol/L (3.4-5.0); Sodium 138 mmol/L (137-145)
[2022-06-07 09:07] LABS: Hemoglobin A1C 7.5 % (<5.7)
== END 2022-06-07 07:50 | disposition home or self-care (01) ==
PROVIDERS: PCP Family Medicine; Visit Provider Family Medicine
DX: E11.65 Type 2 diabetes mellitus with hyperglycemia (principal)
CPT/HCPCS: 36415; 80053; 83036

== ENCOUNTER 2022-07-20 12:04 | Outpatient (CLI) | payer OTHER, SELFPAY ==
[2022-07-20 12:29] LABS: Appearance Urine Clear (Clear); Bilirubin Urine Negative (Negative); Blood Urine Negative (Negative); Color Urine Yellow (Yellow); Glucose Urine UA Negative (Negative); Ketones Urine Negative (Negative); Leukocyte Esterase Ur Negative LEU/UL (NEGATIVE); Nitrate Urine Negative (Negative); Protein Urine Negative (Negative); Specific Grav Ur 1.015 (1.001-1.035); Urobilinogen Urine 0.2 mg/dL (<2.0); pH Urine 7.5 (5.0-9.0)
[2022-07-20 12:30] LABS: Basophils Absolute Auto 0.1 K/mm3 (0.0-0.1); Eosinophils Absolute Auto 0.2 K/mm3 (0-0.3); Eosinophils Percent Auto 3.4 % (0-4.4); Hematocrit 40.8 % (37.0-47.0); Hemoglobin 13.8 g/dL (12.0-15.0); Immature Granulocyte Absolute 0.02 K/mm3 (0.00-0.031); Immature Granulocyte Percent A 0.3 % (0-0.5); Lymphocytes Absolute Auto 1.73 K/mm3 (0.9-3.2); Lymphocytes Percent Auto 29.2 % (18.3-44.2); Mean Corpuscular HGB Conc 33.8 g/dl (32-36); Mean Corpuscular Hemoglobin 29.8 pg (26-34); Mean Corpuscular Volume 88.1 fl (80-100); Mean Platelet Volume 10.2 fl (7.4-10.4); Monocytes Absolute Auto 0.6 K/mm3 (0.1-0.6); Monocytes Percent Auto 9.9 % (2.6-8.5); Neutrophils Absolute Auto 3.3 K/mm3 (1.3-6.7); Neutrophils Percent Auto 56.2 % (45.5-73.1); Platelet Count Result 283 k/mm3 (150-375); Red Blood Count 4.63 M/mm3 (4.2-5.4); Red Cell Distribution Width 12.2 % (11.5-14.5); White Blood Count 5.9 K/mm3 (4.5-10.0)
[2022-07-20 12:35] LABS: Add Urine Microscopic? NO
[2022-07-20 12:44] LABS: Alanine Aminotransferase 47 U/L (6-35); Albumin Level 4.5 g/dL (3.5-5.1); Alkaline Phosphatase 56 U/L (38-126); Anion Gap 8 mmol/L (8-16); Aspartate Amino Transferase 35 U/L (14-36); Bilirubin,Total 0.5 mg/dL (0.2-1.3); Blood Urea Nitrogen 11 mg/dL (7-17); Calcium 9.8 mg/dL (8.4-10.2); Carbon Dioxide 26 mmol/L (22-30); Chloride 106 mmol/L (98-107); Estimated Glomerular Filt Rate > 60; Glucose 132 mg/dL (65-110); Potassium 4.3 mmol/L (3.4-5.0); Sodium 140 mmol/L (137-145)
[2022-07-20 12:59] LABS: Vitamin D 25 Hydroxy 44.2 ng/mL
[2022-07-20 13:14] LABS: Thyroid Stimulating Hormone 0.453 uIU/mL (0.465-4.680)
[2022-07-20 13:50] LABS: Folic Acid > 20.0 ng/mL (2.76->20)
== END 2022-07-20 12:05 | disposition home or self-care (01) ==
LOC: ANHLAB 12:05
PROVIDERS: PCP Family Medicine; Visit Provider Physician Assistant
DX: R53.83 Other fatigue (principal); I10 Essential (primary) hypertension; G47.33 Obstructive sleep apnea (adult) (pediatric); E55.9 Vitamin D deficiency, unspecified; E53.8 Deficiency of other specified B group vitamins; E11.65 Type 2 diabetes mellitus with hyperglycemia; Z99.89 Dependence on other enabling machines and devices
CPT/HCPCS: 36415; 80053; 81003; 82306; 82607; 82746; 84443; 85025; 87086; 87088

== ENCOUNTER 2022-10-07 07:43 | Outpatient (CLI) | payer OTHER, SELFPAY ==
[2022-10-07 08:47] LABS: Alanine Aminotransferase 36 U/L (6-35); Albumin Level 4.4 g/dL (3.5-5.1); Alkaline Phosphatase 51 U/L (38-126); Anion Gap 10 mmol/L (8-16); Aspartate Amino Transferase 27 U/L (14-36); Bilirubin,Total 0.5 mg/dL (0.2-1.3); Blood Urea Nitrogen 16 mg/dL (7-17); Calcium 8.9 mg/dL (8.4-10.2); Carbon Dioxide 23 mmol/L (22-30); Chloride 107 mmol/L (98-107); Estimated Glomerular Filt Rate > 60; Glucose 180 mg/dL (65-110); Sodium 140 mmol/L (137-145)
[2022-10-07 08:59] LABS: Thyroid Stimulating Hormone 0.426 uIU/mL (0.465-4.680)
[2022-10-07 09:06] LABS: Vitamin D 25 Hydroxy 46.1 ng/mL
[2022-10-07 09:17] LABS: Hemoglobin A1C 7.3 % (<5.7)
== END 2022-10-07 07:44 | disposition home or self-care (01) ==
LOC: ANHLAB 07:44
PROVIDERS: PCP Family Medicine; Referring Provider Physician Assistant; Visit Provider Family Medicine
DX: E11.65 Type 2 diabetes mellitus with hyperglycemia (principal); E55.9 Vitamin D deficiency, unspecified; R79.89 Other specified abnormal findings of blood chemistry
CPT/HCPCS: 36415; 80053; 82306; 83036; 84439; 84443

== ENCOUNTER 2022-10-27 07:48 | Outpatient (CLI) | payer OTHER, SELFPAY ==
[2022-10-27 09:53] LABS: Basophils Absolute Auto 0.1 K/mm3 (0.0-0.1); Basophils Percent Auto 1.4 % (0.2-1.2); Eosinophils Absolute Auto 0.2 K/mm3 (0-0.3); Eosinophils Percent Auto 4.1 % (0-4.4); Hematocrit 38.8 % (37.0-47.0); Hemoglobin 13.2 g/dL (12.0-15.0); Immature Granulocyte Absolute 0.03 K/mm3 (0.00-0.031); Immature Granulocyte Percent A 0.6 % (0-0.5); Lymphocytes Absolute Auto 1.29 K/mm3 (0.9-3.2); Lymphocytes Percent Auto 26.6 % (18.3-44.2); Mean Corpuscular Hemoglobin 30.1 pg (26-34); Mean Corpuscular Volume 88.6 fl (80-100); Mean Platelet Volume 10.8 fl (7.4-10.4); Monocytes Absolute Auto 0.4 K/mm3 (0.1-0.6); Monocytes Percent Auto 8.9 % (2.6-8.5); Neutrophils Absolute Auto 2.8 K/mm3 (1.3-6.7); Neutrophils Percent Auto 58.4 % (45.5-73.1); Platelet Count Result 262 k/mm3 (150-375); Red Blood Count 4.38 M/mm3 (4.2-5.4); White Blood Count 4.9 K/mm3 (4.5-10.0)
[2022-10-27 10:56] LABS: Alanine Aminotransferase 37 U/L (6-35); Albumin Level 4.6 g/dL (3.5-5.1); Alkaline Phosphatase 51 U/L (38-126); Anion Gap 8 mmol/L (8-16); Aspartate Amino Transferase 30 U/L (14-36); Bilirubin,Total 0.6 mg/dL (0.2-1.3); Blood Urea Nitrogen 17 mg/dL (7-17); Carbon Dioxide 24 mmol/L (22-30); Chloride 104 mmol/L (98-107); Estimated Glomerular Filt Rate > 60; Glucose 173 mg/dL (65-110); Potassium 4.2 mmol/L (3.4-5.0); Sodium 136 mmol/L (137-145)
[2022-10-31 04:12] LABS: CA 15-3 10 U/mL (<32)
== END 2022-10-27 07:49 | disposition home or self-care (01) ==
PROVIDERS: PCP Family Medicine; Visit Provider Internal Medicine Hematology & Oncology
DX: C50.211 Malignant neoplasm of upper-inner quadrant of right female breast (principal); Z17.0 Estrogen receptor positive status [ER+]
CPT/HCPCS: 36415; 80053; 85025; 86300

== ENCOUNTER 2022-11-24 14:24 | Outpatient (CLI) | payer OTHER, SELFPAY ==
[2022-11-24 15:47] LABS: Thyroid Stimulating Hormone 0.222 uIU/mL (0.465-4.680); Total Triiodothyronine (T3) 1.42 NG/ML (0.97-1.69)
[2022-11-24 15:55] LABS: Free T4 Free Thyroxine 1.22 ng/mL (0.78-2.19)
[2022-11-27 18:29] LABS: Thyrotropin Receptor Antibody <1.00 IU/L (<=2.00)
[2022-11-28 04:41] LABS: Thyroid Peroxidase Antibodies <1 IU/mL (<9)
[2022-11-29 14:27] LABS: Thyroid Stimulating Immunoglob <89 % baseline (<140)
== END 2022-11-24 14:25 | disposition home or self-care (01) ==
LOC: ANHLAB 14:25
PROVIDERS: PCP Family Medicine; Visit Provider Internal Medicine
DX: E05.90 Thyrotoxicosis, unspecified without thyrotoxic crisis or storm (principal)
CPT/HCPCS: 36415; 82607; 83519; 84439; 84443; 84445; 84480; 86376

== ENCOUNTER 2023-01-13 07:39 | Outpatient (CLI) | payer OTHER, SELFPAY ==
[2023-01-13 08:12] LABS: Alanine Aminotransferase 39 U/L (6-35); Albumin Level 4.4 g/dL (3.5-5.1); Alkaline Phosphatase 51 U/L (38-126); Anion Gap 13 mmol/L (8-16); Aspartate Amino Transferase 30 U/L (14-36); Bilirubin,Total 0.4 mg/dL (0.2-1.3); Blood Urea Nitrogen 17 mg/dL (7-17); Calcium 9.3 mg/dL (8.4-10.2); Carbon Dioxide 20 mmol/L (22-30); Chloride 107 mmol/L (98-107); Estimated Glomerular Filt Rate > 60; Glucose 147 mg/dL (65-110); Potassium 3.8 mmol/L (3.4-5.0); Sodium 140 mmol/L (137-145)
[2023-01-13 09:04] LABS: Free T4 Free Thyroxine 1.41 ng/mL (0.78-2.19)
[2023-01-13 09:18] LABS: Hemoglobin A1C 6.9 % (<5.7)
== END 2023-01-13 07:40 | disposition home or self-care (01) ==
PROVIDERS: PCP Family Medicine; Visit Provider Internal Medicine
DX: E11.65 Type 2 diabetes mellitus with hyperglycemia (principal); E05.90 Thyrotoxicosis, unspecified without thyrotoxic crisis or storm
CPT/HCPCS: 36415; 80053; 83036; 84439; 84480

== ENCOUNTER 2023-02-09 13:31 | Outpatient (CLI) | payer OTHER, SELFPAY ==
--- NOTE | ~2023-02-09 | NM_ITS ---
EXAMINATION: NM thyroid scan w uptake DATE: 02/10/2023 14:41 INDICATION: Thyrotoxicosis COMPARISON: Neck CT dated 02/25/2015 TECHNIQUE: 390 microcuries I-123 was administered orally in capsule form. Scintigraphic images of th e thyroid gland were obtained at 24 hours. Thyroid uptake was calculated by the technologist. FINDINGS: The thyroid uptake is 23.7% (normal 10-30%), with the right lobe measuring 14.8% uptake and the left 9.6%. There is no focal area of decreased or increased activity to suggest hypofunctioning or hyperfu nctioning nodule. IMPRESSION: 1. Normal thyroid scintigraphy and 24-hour iodine uptake. Reviewed, dictated and finalized at location A.
== END 2023-02-09 13:32 | disposition home or self-care (01) ==
PROVIDERS: PCP Family Medicine; Visit Provider Internal Medicine
DX: E05.90 Thyrotoxicosis, unspecified without thyrotoxic crisis or storm (principal)
CPT/HCPCS: 78014; A9516

== ENCOUNTER 2023-04-27 09:18 | Outpatient (CLI) | payer MEDICARE, SELFPAY ==
[2023-04-27 09:34] LABS: Basophils Absolute Auto 0.1 K/mm3 (0.0-0.1); Eosinophils Absolute Auto 0.2 K/mm3 (0-0.3); Eosinophils Percent Auto 3.3 % (0-4.4); Hematocrit 38.7 % (37.0-47.0); Hemoglobin 13.4 g/dL (12.0-15.0); Immature Granulocyte Absolute 0.02 K/mm3 (0.00-0.031); Immature Granulocyte Percent A 0.4 % (0-0.5); Lymphocytes Absolute Auto 1.41 K/mm3 (0.9-3.2); Lymphocytes Percent Auto 28.9 % (18.3-44.2); Mean Corpuscular HGB Conc 34.6 g/dl (32-36); Mean Corpuscular Hemoglobin 30.6 pg (26-34); Mean Corpuscular Volume 88.4 fl (80-100); Mean Platelet Volume 9.2 fl (7.4-10.4); Monocytes Absolute Auto 0.4 K/mm3 (0.1-0.6); Neutrophils Absolute Auto 2.8 K/mm3 (1.3-6.7); Neutrophils Percent Auto 57.4 % (45.5-73.1); Platelet Count Result 288 k/mm3 (150-375); Red Blood Count 4.38 M/mm3 (4.2-5.4); Red Cell Distribution Width 11.9 % (11.5-14.5); White Blood Count 4.9 K/mm3 (4.5-10.0)
[2023-04-27 11:02] LABS: Alanine Aminotransferase 33 U/L (6-35); Albumin Level 4.7 g/dL (3.5-5.1); Alkaline Phosphatase 46 U/L (38-126); Anion Gap 9 mmol/L (8-16); Aspartate Amino Transferase 26 U/L (14-36); Bilirubin,Total 0.6 mg/dL (0.2-1.3); Blood Urea Nitrogen 18 mg/dL (7-17); Calcium 9.7 mg/dL (8.4-10.2); Carbon Dioxide 24 mmol/L (22-30); Chloride 105 mmol/L (98-107); Estimated Glomerular Filt Rate > 60; Glucose 122 mg/dL (65-110); Sodium 138 mmol/L (137-145)
[2023-05-01 15:45] LABS: CA 15-3 12 U/mL (<32)
== END 2023-04-27 09:19 | disposition home or self-care (01) ==
PROVIDERS: PCP Family Medicine; Visit Provider Internal Medicine Hematology & Oncology
DX: C50.211 Malignant neoplasm of upper-inner quadrant of right female breast (principal); Z17.0 Estrogen receptor positive status [ER+]
CPT/HCPCS: 36415; 80053; 85025; 86300

== ENCOUNTER 2023-06-09 10:21 | Outpatient (CLI) | payer MEDICARE, SELFPAY ==
[2023-06-09 11:09] LABS: Appearance Urine Cloudy (Clear); Bacteria Urine None Seen /hpf; Bilirubin Urine Negative (Negative); Blood Urine Negative (Negative); Color Urine Yellow (Yellow); Glucose Urine UA Negative (Negative); Ketones Urine Negative (Negative); Leukocyte Esterase Ur Negative LEU/UL (NEGATIVE); Nitrate Urine Negative (Negative); Non Pathogenic Casts 0-2; Protein Urine Negative (Negative); RBC Urine 0-2 /hpf (0-2); Specific Grav Ur 1.014 (1.001-1.035); Squamous Epithelial Cell Urine None seen /hpf (Few); Urobilinogen Urine 0.2 mg/dL (<2.0); WBC Urine 0-5 /hpf (0-3); pH Urine 6.5 (5.0-9.0)
[2023-06-09 11:11] LABS: Add Urine Microscopic? YES
[2023-06-09 11:14] LABS: Cholesterol 150 mg/dL (0-200); HDL Direct 48 mg/dL; Triglycerides 130 mg/dL (<150)
[2023-06-09 11:27] LABS: LDL Cholesterol Direct 71 mg/dL
[2023-06-09 11:33] LABS: Creatinine Urine 114.7 mg/dL
[2023-06-09 11:44] LABS: MALB Creatinine Ratio < 5.2 mg/g (0-30); Microalbumin Urine Random < 6.0 mg/L (0-16.7)
[2023-06-09 11:45] LABS: Thyroid Stimulating Hormone 0.298 uIU/mL (0.465-4.680)
[2023-06-09 11:49] LABS: Free T4 Free Thyroxine 1.39 ng/mL (0.78-2.19)
== END 2023-06-09 10:22 | disposition home or self-care (01) ==
LOC: ANHLAB 10:23
PROVIDERS: PCP Family Medicine; Referring Provider Physician Assistant Medical; Visit Provider Internal Medicine
DX: R35.0 Frequency of micturition (principal); R39.89 Other symptoms and signs involving the genitourinary system; E11.65 Type 2 diabetes mellitus with hyperglycemia
CPT/HCPCS: 36415; 80061; 81001; 82043; 84439; 84443; 87086; 87088

== ENCOUNTER 2023-10-10 14:38 | Outpatient (CLI) | payer MEDICARE, SELFPAY ==
--- NOTE | ~2023-10-10 | DEXA_ITS ---
Bone Density Report Name: DEBBY MEJIAS Age: 63 Sex: Female Ethnicity: White Date of : 1960 Indication: postmenopausal; screening for osteoporosis; history of glucocorticoids; cancer; Referring Provider: JOSE CARLOS RINCON Study: Bone densitometry was performed. Exam Date: October 10, 2023 Accession number: [id number] Bone Density: Region BMD T-score Z-score Classification AP Spine(L1-L4) 1.034 -0.1 1.7 Normal Femoral Neck (Left) 0.761 -0.8 0.8 Normal Total Hip (Left) 0.968 0.2 1.5 Normal Femoral Neck (Right) 0.767 -0.7 0.8 Normal Total Hip (Right) 0.947 0.0 1.3 Normal Total Hip Mean 0.957 0.1 1.4 Normal World Health Organization criteria for BMD impression classify patients as: Normal (T-score at or above -1.0), Osteopenia (T-score between -1.0 and -2.5), or Osteoporosis (T-score at or below -2.5). 10-year Fracture Risk: FRAX not reported because: All T-scores for Spine Total, Hip Total, Femoral Neck at or above -1.0 Clinical Information Provided by Patient: Has taken Glucocorticoids Has used the following medications: Vitamin D Has the following medical conditions: Cancer Patient maximum height was 66 Menopause Age: 46 No regular weight bearing exercise Drinks caffeinated beverages Onset of menses at age 13 Number of children 2 Impression: The patient has normal bone mass. The patient has risk factors, including: history of glucocorticoid therapy. Discussion: BONE DENSITY IS ABOVE THE MINIMUM DESIRABLE LEVEL AT ALL SKELETAL SITES TESTED. This patient?s bone mineral density is above the minimum desirable level (T-score -1.0 or better) at all sites measured. The patient should follow a healthful lifestyle (good nutrition with adequate calcium and vitamin D, and appropriate weight-bearing exercise). Follow-Up: Consider repeating this study in 5 years or sooner if there is some new clinical indication. Reported by: EVAN on 10/10/2023 3:15:00 PM. Reviewed, dictated and finalized at location AKari MALDONADO
== END 2023-10-10 14:39 | disposition home or self-care (01) ==
LOC: ANHIMG 14:39
PROVIDERS: PCP Family Medicine; Visit Provider Internal Medicine Hematology & Oncology
DX: M85.89 Other specified disorders of bone density and structure, multiple sites (principal); Z78.0 Asymptomatic menopausal state
CPT/HCPCS: 77080

== ENCOUNTER 2023-10-27 09:45 | Outpatient (CLI) | payer MEDICARE, SELFPAY ==
[2023-10-27 10:02] LABS: Basophils Absolute Auto 0.1 K/mm3 (0.0-0.1); Basophils Percent Auto 1.5 % (0.2-1.2); Eosinophils Absolute Auto 0.2 K/mm3 (0-0.3); Eosinophils Percent Auto 3.8 % (0-4.4); Hematocrit 37.5 % (37.0-47.0); Hemoglobin 13.3 g/dL (12.0-15.0); Immature Granulocyte Absolute 0.01 K/mm3 (0.00-0.031); Immature Granulocyte Percent A 0.2 % (0-0.5); Lymphocytes Absolute Auto 1.17 K/mm3 (0.9-3.2); Lymphocytes Percent Auto 24.8 % (18.3-44.2); Mean Corpuscular HGB Conc 35.5 g/dl (32-36); Mean Corpuscular Hemoglobin 31.3 pg (26-34); Mean Corpuscular Volume 88.2 fl (80-100); Mean Platelet Volume 9.7 fl (7.4-10.4); Monocytes Absolute Auto 0.4 K/mm3 (0.1-0.6); Monocytes Percent Auto 7.6 % (2.6-8.5); Neutrophils Absolute Auto 2.9 K/mm3 (1.3-6.7); Neutrophils Percent Auto 62.1 % (45.5-73.1); Platelet Count Result 259 k/mm3 (150-375); Red Blood Count 4.25 M/mm3 (4.2-5.4); Red Cell Distribution Width 11.9 % (11.5-14.5); White Blood Count 4.7 K/mm3 (4.5-10.0)
[2023-10-27 12:27] LABS: Alanine Aminotransferase 24 U/L (6-35); Albumin Level 4.9 g/dL (3.5-5.1); Alkaline Phosphatase 53 U/L (38-126); Anion Gap 9 mmol/L (4-12); Aspartate Amino Transferase 22 U/L (14-36); Bilirubin,Total 0.6 mg/dL (0.2-1.3); Blood Urea Nitrogen 13 mg/dL (7-17); Calcium 9.9 mg/dL (8.4-10.2); Carbon Dioxide 21 mmol/L (22-30); Chloride 111 mmol/L (98-107); Estimated Glomerular Filt Rate > 60; Glucose 135 mg/dL (65-110); Potassium 4.1 mmol/L (3.4-5.0); Sodium 141 mmol/L (137-145)
[2023-10-29 04:19] LABS: CA 15-3 10 U/mL (<32)
== END 2023-10-27 09:46 | disposition home or self-care (01) ==
LOC: ANHLAB 09:47
PROVIDERS: PCP Family Medicine; Visit Provider Internal Medicine Hematology & Oncology
DX: C50.211 Malignant neoplasm of upper-inner quadrant of right female breast (principal); Z17.0 Estrogen receptor positive status [ER+]
CPT/HCPCS: 36415; 80053; 85025; 86300

== ENCOUNTER 2023-11-16 09:08 | Outpatient (CLI) | payer MEDICARE, SELFPAY ==
[2023-11-16 10:15] LABS: Free T4 Free Thyroxine 1.16 ng/mL (0.78-2.19); Vitamin D 25 Hydroxy 59.3 ng/mL
== END 2023-11-16 09:09 | disposition home or self-care (01) ==
LOC: ANHLAB 09:12
PROVIDERS: PCP Family Medicine; Visit Provider Internal Medicine
DX: E11.65 Type 2 diabetes mellitus with hyperglycemia (principal); Z79.4 Long term (current) use of insulin
CPT/HCPCS: 36415; 82306; 84439; 84443

== ENCOUNTER 2023-12-22 10:29 | Emergency (ER) | payer MEDICARE, SELFPAY ==
--- NOTE | 2023-12-22 10:32 | ED.EAR ---
HPI - Ear Problem General Chief complaint: Ear Stated complaint: ear pain Time Seen by Provider: 12/22/23 10:43 Source: patient, RN notes reviewed and old records reviewed Mode of arrival: ambulatory Limitations: no limitations History of Present Illness HPI Narrative: 63-year-old female presents to the [facility] complaints right ear pain since yesterday. Patient denies any other symptoms. States that she was using Q-tips on Tuesday. No treatement BLOCK SORTER. MD Complaint: ear pain Treatment prior to arrival: none Related Data Home Medications Medication Instructions Recorded Confirmed multivitamin 1 tablet PO DAILY 04/10/19 12/22/23 anastrozole 1 mg tablet 1 mg PO DAILY 04/27/19 12/22/23 meclizine 25 mg tablet 25 mg PO PRN PRN Dizziness 12/22/23 12/22/23 metformin 500 mg tablet,extended 1,000 mg PO DAILY 12/22/23 12/22/23 release 24 hr Allergies Allergy/AdvReac Type Severity Reaction Status Date / Time gold Au 198 Allergy Severe RASH,EYE Verified 12/22/23 10:34 SWELLING pioglitazone Allergy Unknown Unknown Verified 12/22/23 10:34 codeine AdvReac Intermediate Nausea Verified 12/22/23 10:34 Review of Systems Review of Systems: All systems reviewed & are unremarkable except as noted in HPI and below Constitutional: Constitutional: Reports no additional constitutional complaints Eyes: Eyes: Reports no additional eye complaints ENT: Reports as per HPI and Reports otalgia (right ) Cardiovascular: Cardiovascular: Reports no additional cardiovascular complaints, Denies chest pain and Denies dyspnea Respiratory: Respiratory: Reports no additional respiratory complaints, Denies chest congestion, Denies cough and Denies dyspnea Gastrointestinal: Gastrointestinal: Reports no additional gastrointestinal complaints, Denies abdominal pain, Denies nausea and Denies vomiting Musculoskeletal: Musculoskeletal: Reports no additional musculoskeletal complaints Integumentary/Breasts: Skin/Breast: Reports system reviewed and no additional complaints, except as docu Neurologic: Reports system reviewed and no additional complaints, except as documented Psychiatric: Psychiatric: Reports no additional psychiatric complaints Allergic/Immunologic: Allergic/Immunologic: Reports no additional allergic/immunologic complaints PMFSH Past Medical History Medical History Atrial fibrillation Breast cancer, 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 Status post partial mastectomy with sentinel lymph node biopsy per Dr. Mendoza. She completed radiation treatment from 02/05/2019 to 03/05/[address] Aldridge. She is now on Arimidex and follows with Dr. Garza. Diabetes Diverticulosis of intestine, part unspecified, without perforation or abscess with bleeding Dyslipidemia Essential (primary) hypertension History of branchial cleft cyst HLD (hyperlipidemia) Long-term current use of insulin for diabetes mellitus Obesity (BMI 30-39.9) XAVIER on CPAP Osteopenia PAF (paroxysmal atrial fibrillation) Primary osteoarthritis, right hand Type 2 diabetes mellitus with hyperglycemia Surgical History Surgical History History of dilation and curettage History of hammertoe correction History of hysterectomy History of partial mastectomy of right breast With sentinel lymph node biopsy, negative margins. History of tonsillectomy History of tubal ligation Family History Family History Mother Hypertension Father Cerebrovascular accident Family history of malignant neoplasm Social History Social History Social History: The patient is and lives with her in [place], [place]. She works at a local [employer]. She
[2023-12-22 10:44] VITALS: BP 136/62; PULSE 62; RESP 16; TEMP 36.7; O2SAT 100
[2023-12-22 10:48] VITALS: BP 136/62; PULSE 62; RESP 16; TEMP 36.7; O2SAT 100
== END 2023-12-22 11:04 | disposition home or self-care (01) ==
PROVIDERS: Emergency Provider Nurse Practitioner; PCP Family Medicine
DX: H61.891 Other specified disorders of right external ear (principal); I48.91 Unspecified atrial fibrillation; E11.9 Type 2 diabetes mellitus without complications; Z79.4 Long term (current) use of insulin; Z79.84 Long term (current) use of oral hypoglycemic drugs; E78.5 Hyperlipidemia, unspecified; I10 Essential (primary) hypertension; E66.9 Obesity, unspecified; Z68.28 Body mass index [BMI] 28.0-28.9, adult; G47.33 Obstructive sleep apnea (adult) (pediatric); M85.80 Other specified disorders of bone density and structure, unspecified site; I48.0 Paroxysmal atrial fibrillation; M19.041 Primary osteoarthritis, right hand; Z85.3 Personal history of malignant neoplasm of breast; Z90.11 Acquired absence of right breast and nipple
CPT/HCPCS: 99213; G0463

== ENCOUNTER 2024-03-08 09:35 | Outpatient (CLI) | payer MEDICARE, SELFPAY ==
[2024-03-08 10:37] LABS: Cholesterol 137 mg/dL (0-200); HDL Direct 58 mg/dL; Triglycerides 88 mg/dL (<150)
[2024-03-08 10:48] LABS: LDL Cholesterol Direct 58 mg/dL
[2024-03-08 11:07] LABS: Free T4 Free Thyroxine 1.01 ng/mL (0.78-2.19)
[2024-03-08 11:09] LABS: Creatinine Urine 146.3 mg/dL
[2024-03-08 11:12] LABS: MALB Creatinine Ratio 4.9 mg/g (0-30); Microalbumin Urine Random 7.2 mg/L (0-16.7)
== END 2024-03-08 09:36 | disposition home or self-care (01) ==
LOC: ANHLAB 09:36
PROVIDERS: PCP Family Medicine; Visit Provider Internal Medicine
DX: E11.65 Type 2 diabetes mellitus with hyperglycemia (principal); E05.90 Thyrotoxicosis, unspecified without thyrotoxic crisis or storm
CPT/HCPCS: 36415; 80061; 82043; 84439; 84443

== ENCOUNTER 2024-07-11 14:52 | Outpatient (CLI) | payer MEDICARE, SELFPAY ==
--- NOTE | ~2024-07-11 | XR_ITS ---
CHEST RADIOGRAPH, PA AND LATERAL CLINICAL HISTORY: Z01.818 - Encounter for other pre-op, h/o HTN, sleep apnea . COMPARISON: 10/24/2021 TECHNIQUE: PA and lateral views of the chest. FINDINGS The cardiomediastinal silhouette is unremarkable. The lungs are clear. Visualized osseous structures and soft tissues are unremarkable. IMPRESSION: No focal infiltrate or effusion. Reviewed, dictated and finalized at location A. Y FORGER HELPER
[2024-07-11 15:11] LABS: Basophils Absolute Auto 0.1 K/mm3 (0.0-0.1); Basophils Percent Auto 1.2 % (0.2-1.2); Eosinophils Absolute Auto 0.3 K/mm3 (0-0.3); Eosinophils Percent Auto 3.8 % (0-4.4); Hematocrit 38.4 % (37.0-47.0); Hemoglobin 13.3 g/dL (12.0-15.0); Immature Granulocyte Absolute 0.03 K/mm3 (0.00-0.031); Immature Granulocyte Percent A 0.5 % (0-0.5); Lymphocytes Absolute Auto 1.52 K/mm3 (0.9-3.2); Lymphocytes Percent Auto 23.2 % (18.3-44.2); Mean Corpuscular HGB Conc 34.6 g/dl (32-36); Mean Corpuscular Volume 89.5 fl (80-100); Mean Platelet Volume 9.7 fl (7.4-10.4); Monocytes Absolute Auto 0.6 K/mm3 (0.1-0.6); Monocytes Percent Auto 8.5 % (2.6-8.5); Neutrophils Absolute Auto 4.1 K/mm3 (1.3-6.7); Neutrophils Percent Auto 62.8 % (45.5-73.1); Platelet Count Result 257 k/mm3 (150-375); Red Blood Count 4.29 M/mm3 (4.2-5.4); White Blood Count 6.6 K/mm3 (4.5-10.0)
[2024-07-11 15:28] LABS: Chloride 107 mmol/L (98-107)
[2024-07-11 15:37] LABS: Alanine Aminotransferase 23 U/L (6-35); Albumin Level 4.6 g/dL (3.5-5.1); Alkaline Phosphatase 54 U/L (38-126); Anion Gap 11 mmol/L (4-12); Aspartate Amino Transferase 25 U/L (14-36); Bilirubin,Total 0.4 mg/dL (0.2-1.3); Blood Urea Nitrogen 18 mg/dL (7-17); Calcium 9.7 mg/dL (8.4-10.2); Carbon Dioxide 24 mmol/L (22-30); Estimated Glomerular Filt Rate > 60; Glucose 99 mg/dL (65-110); Potassium 3.8 mmol/L (3.4-5.0); Sodium 142 mmol/L (137-145)
--- OUTSIDE RECORDS SUMMARY | 2024-07-13 02:33 | XMS_ITS | Referral Summary ---
Author Organization [facility] Address [address] [place] [address] Care Team Providers Care Infection Control Preventionist Name Role Phone James Agudelo MD Primary Care Provider [phone] Source Comments [facility],non-owned Affiliates and Associated Physician Practices is amultiple site organization consisting of ambulatory clinics and hospital sitesin [place], [place]. This disclosure is being madepursuant to the Care Everywhere program and may not contain all information available regarding this patient. Last updated 18.[facility] Medications * Be aware that medications may not be up to date on this document. Alwaysverify current medications with the patient. Medication Sig Dispensed Refills Start Date End Date Status fenofibrate (TRICOR) 48 MG tablet 5 09/06/2016 Active insulin detemir (LEVEMIR FLEXTOUCH) pen 5 08/29/2016 Active losartan (COZAAR) 25 MG tablet 2 09/06/2016 Active liraglutide (VICTOZA) 18 MG/3ML pen 5 08/29/2016 Active triamcinolone acetonide (KENALOG) 0.1 % cream 0 08/12/2016 Active atorvastatin (LIPITOR) 10 MG tablet 2 09/14/2016 Active tacrolimus (PROTOPIC) 0.1 % ointment 30 g 2 09/27/2016 Active Active Problems Problem Noted Date Diagnosed Date Allergic contact dermatitis due to cosmetics 02/2017 Eczematous dermatitis of right eyelid 09/30/2016 Other specified dermatitis 09/30/2016 Eczematous dermatitis of left eyelid 09/30/2016 Social History Tobacco Use Types Packs/Day Years Used Date Smoking Tobacco: Never Smokeless Tobacco: Never Alcohol Use Standard Drinks/Week Comments Yes 0 (1 standard drink = 0.6 oz pur e alcohol) Sex and Gender Information Value Date Recorded Sex Assigned at Not on file Gender Identity Not on file Sexual Orientation Not on file Plan of Treatment Not on file Care Teams Infection Control Preventionist Relationship Specialty Start Date End Date James Agudelo MD [address] [place] [address] PCP - General 03/12/15
--- OUTSIDE RECORDS SUMMARY | 2024-07-13 02:33 | XMS_ITS ---
Author Organization [facility] Address [address] [place], [place] [id number] Care Team Providers Care Shrink Pit Operator Name Role Phone BAHMANSuri JOSIAH Unavailable [phone] James Agudelo Unavailable Unavailable JO Braden Unavailable [phone] REASON FOR VISIT PF inj ck L heel Encounters Encounter Location Date Provider Diagnosis [facility] [address] [place], [place] [id number] 03/23/2023 JO Braden Plan Of Treatment Next Appt Details Provider Name:JOSIAH HAYLEE, 10:00:00 AM, [address] [place], [place], [id number], Provider Name:JOSIAH HAYLEE, 01:10:00 PM, [address] [facility] [address] [address], [place], [phone], Progress Notes * DEBBY MEJIAS MDOB:1959 (64 yo F)Acc No.[id number]:03/23/2023 Patient:?DEBBY MEJIAS Provider:?Jo Richardson DPM :1960???Age:63 Y???Sex:Female D ate:03/23/2023 Address:[address] [place], [place] Subjective: * Chief Complaints: * ???1. PF inj ck L heel. * Medical History:? Objective: * Vitals:? Assessment: Plan: * Treatment: * Billing Information: * Visit Code:? * Procedure Codes:? * Electronic signature of ANITA Braden DPM on 07/13/2024 at 02:33 AM BEHAVIOR SUPPORT SPECIALIST Sign off status: Pending * Provider:?Jo Richardson DPM Date:?1 Generated for Viktoriya perdomo/Kelly/eTlakiasmitting on:?07/13/2024 02:33 AM BEHAVIOR SUPPORT SPECIALIST
--- OUTSIDE RECORDS SUMMARY | 2024-07-13 02:33 | XMS_ITS ---
Author Organization [facility] Address [address] [place], [place] [id number] Care Team Providers Care Gift Shop Assistant Name Role Phone JOSIAH LEACH Unavailable [phone] James Agudelo Unavailable Unavailable REASON FOR VISIT SURGERY / IMPLANT Encounters Encounter Location Date Provider Diagnosis [facility] [address] [place], [place] [id number] 06/05/2024 JOSIAH LEACH Plan Of Treatment Next Appt Details Provider Name:JOSIAH LEACH, 10:00:00 AM, [address] [place], [phone], Provider Name:JOSIAH LEACH, 01:10:00 PM, [address] [facility] [address], [place], [id number], Progress Notes * DEBBY MEJIAS MDOB:1959 (64 yo F)Acc No.[id number]:06/05/2024 Patient:?DEBBY MEJIAS :1960???Age:64 Y???Sex:Female Address:[address] [place], [address] * true * Date:? Generated for Printi ng/Faxing/eTransmitting on:?07/13/2024 02:32 AM RESIDENTIAL SUPPORT WORKER
--- OUTSIDE RECORDS SUMMARY | 2024-07-13 02:33 | XMS_ITS | Patient Health Summary ---
Author Organization [facility] Address [address] [place] [address] Care Team Providers Care Corn Miller Name Role Phone James Agudelo MD Primary Care Provider [phone] Note from [facility],non-owned Affiliates and Associated Physician Practices is amultiple site organization consisting of ambulatory clinics and hospital sitesin [place], [place], [place] and [place]. This disclosure is being madepursuant to the Care Everywhere program and may not contain all information available regarding this patient. Last updated 18.[facility] Medications * Be aware that medications may not be up to date on this document. Alwaysverify current medications with the patient. * fenofibrate (TRICOR) 48 MG tablet(Started 09/06/2016) 5 refills left * insulin detemir (LEVEMIR FLEXTOUCH) pen(Started 08/29/2016) 5 refills left * losartan (COZAAR) 25 MG tablet(Started 09/06/2016) 2 refills left * liraglutide (VICTOZA) 18 MG/3ML pen(Started 08/29/2016) 5 refills left * triamcinolone acetonide (KENALOG) 0.1 % cream(Started 08/12/2016) * atorvastatin (LIPITOR) 10 MG tablet(Started 09/14/2016) 2 refills left * tacrolimus (PROTOPIC) 0.1 % ointment(Started 09/27/2016) 2 refills left Active Problems Problem Noted Date Diagnosed Date [...] on file Sexual Orientation Not on file Procedures * MRI BREAST BILAT WWO CONTRAST(Performed 11/24/2018) Performed for Neoplasm, breast * CREATININE BLOOD - POCT (IP) [facility](Performed 11/24/2018) Performed for Neoplasm, breast Results * (ABNORMAL) MRI BREAST BILAT WWO CONTRAST (11/24/2018 6:26 PM CDT) Anatomical Region Laterality Modality Breast Bilateral Magnetic Resonan ce 11/27/2018 10:5 8 AM CDT Impressions 11/27/2018 3:40 PM CDT IMPRESSION: 1.1.6 cm mass in the upper inner right breast is consistent with biopsy-proven tubular carcinoma. 2.No MR evidence of multifocal malignancy in right breast. 3.No MR evidence of malignancy in left breast. ASSESSMENT: BI-RADS category 6: Known biopsy-proven cancer. RECOMMENDATION: Patient is already under the care of Dr. Mendoza. I, Dr. MAURA WILLIS M.D. have personally reviewed and interpreted this examination/study. This report was electronically signed by MAURA WILLIS M.D. ??on 11/27/2018 3:40 PM . Narrative 11/27/2018 3:40 PM CDT BILATERAL BREAST MRI HISTORY: ??58-year-old female with newly diagnosed right breast invasive tubular carcinoma with ductal carcinoma in situ. The patient also has a history of multiple additional bilateral breast biopsies with benign pathology. MRI requested to evaluate extent of disease. COMPARISON: Comparison was made to previous mammograms and ultrasounds from [facility], most recently 11/03/2018 and dating from 01/16/2016. TECHNIQUE: Multiplanar multisequence MR imaging of both breasts before and following the administration of 6 cc of Gadavist. Dynamic phase imaging was performed in the axial plane. Exam was processed by and interpreted on a [employer] server including 3-D volume rendering, subtraction image processing and contrast kinetic analysis. FINDINGS: Background tissue pattern: Heterogeneous fibroglandular tissue. Degree of background parenchymal enhancement: Mild, symmetric. RIGHT BREAST: There is an irregular, enhancing mass with spiculated margins in the upper inner right breast at posterior depth, measuring 1.1 cm AP by 1.6 cm TV (series 6, image 61). Susceptibility artifact secondary to a biopsy clip is seen within the mass, which reflects site of known invasive tubular carcinoma. Mass demonstrates washout kinetics. There is no involvement of the skin, chest wall, or nipple-areolar complex. Two additional foci of susceptibility artifact are seen anterior to the known malignancy in the upper central right breast, reflecting sites of previous benign biopsies (stromal fibrosis and adenosis). No abnormal enhancement is seen in this area. There is a 0.7 cm oval enhancing mass with circumscribed margins in the lower inner quadrant of the right breast (axial postcontrast image 95), which demonstrates associated T2 hyperintensity and progressive enhancement kinetics. From review of previous mammograms, mass appears mammographically stable from at least 07/04/2017. Given known fibroadenoma with similar imaging characteristics in left breast, mass is considered benign. A few scattered benign cysts are seen. There is no right axillary or internal mammary adenopathy. LEFT BREAST: There is no suspicious mass or area of abnormal enhancement in the left breast. Biopsy clip is seen in the lateral left breast associated with a 1.0 cm T2 hyperintense mass with dark internal septations, consistent with known fibroadenoma (series 6, image 89). No abnormal enhancement is seen associated with the biopsy clip in the medial left breast (nonproliferative fibrocystic change, duct ectasia, adenosis). A few scattered cysts are seen, including in the lower central left breast. There is no abnormality of the left axilla, chest wall, or nipple areolar complex. EXTRAMAMMARY FINDINGS: No significant extramammary findings are identified. Elizabeth CLEMENTE ORDERABLES * (ABNORMAL) CREATININE BLOOD - POCT (IP) [facility] (11/24/2018 5:26 PM CDT) Creatinine POCT 1.12 0.3 - 1.3 mg/dL [facility] eGFR POCT 53(A) 60 ml/min [facility] Blood BLOOD SPECIMEN / Unknown 11/24/2018 5:26 PM CDT Elizabeth Mendoza DO LAB - POINT OF CARE ORDERABLES [facility] [address] [phone] Care Teams Corn Miller Relationship Specialty Start Date End Date James Agudelo MD [address] [place] [id number] PCP - General 03/12/15
--- OUTSIDE RECORDS SUMMARY | 2024-07-13 02:33 | XMS_ITS | Clinical Summary ---
Author Organization [facility] Address [address] [place] [address] Care Team Providers Care Global Ceo Name Role Phone James Agudelo MD Primary Care Provider [phone] Allergies No known active allergies Medications liraglutide (VICTOZA) 0.6 mg/0.1 mL (18 mg/3 mL) Inject by subcutaneous injection daily. Active losartan (COZAAR) 50 mg tablet TAKE 1 TABLET BY MOUTH EVERY DAY 3 Active atorvastatin (LIPITOR) 10 mg tablet Take 10 mg by mouth daily with supper. Active ETELVINA PEN NEEDLE 32 gauge x 5/32 Needle INJECT TWICE DAILY 11 Active FREESTYLE ANNA 14 DAY READER Misc USE TO CHECK BLOOD SUGAR 0 Active fenofibrate nanocrystallized (TRICOR) 48 mg tablet Active ONETOUCH ULTRA BLUE TEST STRIP Strip Active FREESTYLE ANNA 14 DAY SENSOR Kit APPLY ONE SENSORY EVERY 14 DAYS Active flash glucose sensor Kit apply one sensor every 14 days Active diltiaZEM (CARDIZEM) 60 mg tablet TAKE 1 TABLET BY MOUTH EVERY 6 HOURS Active fenofibrate (LOFIBRA) 54 mg TAKE 1 TABLET BY MOUTH EVERY DAY Active losartan (COZAAR) 25 mg tablet TAKE 2 TABLETS BY MOUTH EVERY DAY Active Ozempic 0.25 mg or 0.5 mg(2 mg/1.5 mL) Pen Injector INJECT 0.5 MG (0.4 ML) SUBCUTANEOUSLY WEEKLY 023 Active insulin detemir (LEVEMIR U-100 INSULIN SUBCUT) Inject 24 Units by subcutaneous injection 2 times daily. Active metFORMIN (GLUCOPHAGE XR) 500 mg Extended Release 24 hour tablet Active methIMAzole (TAPAZOLE) 5 mg tablet 024 Active anastrozole (Arimidex) 1 mg tabletIndications:M alignant neoplasm of upper-inner quadrant of right breast in female, estrogen receptor positive (CMS/HCC) Take 1 Tablet (1 mg) by mouth daily. 90 Tablet 1 024 Active anastrozole (Arimidex) 1 mg tabletIndications:M alignant neoplasm of upper-inner quadrant of right breast in female, estrogen receptor positive (CMS/HCC) Take 1 Tablet (1 mg) by mouth daily. 90 Tablet 024 2023 Disconti nued(Reo rder) Active Problems Patient Care Coordination No te Formatting of this note migh t be different from the original. Primary Care: James Agudelo MD Referring Provider: James Agudelo MD [address] [facility] [address] [address] Other: Problem Noted Date Diagnosed Date History of right breast cancer 08/30/2023 S/P partial mastectomy, right 08/30/2023 Aromatase inhibitor use 08/30/2023 Abnormality of left breast on screening mammogra m 08/16/2019 Epidermoid cyst of skin of right breast 07/02/19 20 History of external beam radiation therapy 03/21 DCIS (ductal carcinoma in situ) of breast 2018 Overview (06/28/2019): right breast Malignant neoplasm of upper- inner quadrant of right breast in female, estrogen receptor positive 11/14/2018 Apocrine cyst 07/25/2018 Fibrocystic breast changes of both breasts 07/25 Screening for breast cancer 10/26/2017 Resolved Problems Problem Noted Date Diagnosed Date Resolved Date Abnormal mammogram of right breast 10/26/2017 11/28/2018 Abnormal ultrasound of breast 10/26/2017 11/28/2018 Encounters Date Type Department Care Team Description 07/03/2024 External Device Data STL ABSTRACTION Provider, Abstract 06/14/2024 [facility] Oncology and Hematology - [place] [address] [place] [address] Anitha Pierson MD Malignant neoplasm of upper-inner quadrant of right breast in female, estrogen receptor positive (CMS/HCC) 06/08/2024 [facility] On[facility] [address] [place] [phone] Anitha Pierson MD Malignant neoplasm of upper-inner quadrant of right breast in female, estrogen receptor positive (CMS/HCC) from Last 3 Months Family History Medical History Relation Name Comments Ovarian Cancer Maternal Grandmother Breast Cancer Neg Hx Relation Name Status Comments Brother 1 Alive Brother 2 Alive Father Maternal Grandmother Mother Alive Social History Tobacco Use Types Packs/Day Years Used Date Smoking Tobacco: Never Smokeless Tobacco: Never Tobacco Cessation:Counseling Given: Not Answered Alcohol Use Standard Drinks/Week Comments Yes 2 (1 standard drink = 0.6 oz pur e alcohol) socially Feeling Safe Answer Date Recorded Fear of Current or Ex-Partner Not on file Emotionally Abused Not on file 08/30/2023 Within the last year, have y ou been kicked, hit, slapped, or otherwise physically hurt by your partner or ex-partner? No 08/30/2023 Sexually Abused Not on file 08/30/2023 Comments No Sex and Gender Information Value Date Recorded Sex Assigned at Not on file Legal Sex Female 4:27 PM CDT Gender Identity Not on file Sexual Orientation Not on file Last Filed Vital Signs Vital Sign Reading Time Taken Comments Blood Pressure 105/60 11/01/2023 10:44 AM CDT Pulse 80 11/01/2023 10:44 AM CDT Temperature 35.9 ??C (96.7 ??F) 11/01/2023 10:44 AM C DT Respiratory Rate 14 11/01/2023 10:44 AM CDT Oxygen Saturation 94% 11/01/2023 10:44 AM CDT Inhaled Oxygen Concentration - - Weight 81.6 kg (180 lb) 11/01/2023 10:44 AM CDT Height 170.2 cm (5' 7 ) 08/30/2023 1:02 PM CDT Body Mass Index 28.19 08/30/2023 1:02 PM CDT Plan of Treatment Upcoming Encounters Date Type Department Care Team (Late st Contact Info) Description 09/18/2024 2:15 PM CDT Office Visit [facility] Oncology and Hematology - [place] [address] [facility] [address] [place] [address] Bhargav Garza MD [address] [facility] [address] [place] [address] Health Maintenance Due Date Last Done Comments DTAP/TDAP/TD VACCINES (1 - Tdap) 1977 COLORECTAL SCREENING 2003 Colorectal Cancer Screening 2003 FIT-DNA Q 3 years 2003 FIT/FOBT Q 1 year 2003 Flex Sig/CT Colonography Q 5 years 2003 PNEUMOCOCCAL VACCINE 65+ YEA RS (1 of 1 - PCV) 01/18/2008 ZOSTER VACCINE (1 of 2) 01/18/2008 OSTEOPOROSIS SCREENING 2023 INFLUENZA VACCINE (#1) 2024 04/13/2019 Pre-Diabetes and Diabetes Screening 04/28/2024 04/28/2021, 02/21/2020 BREAST CANCER SCREENING 08/29/2024 08/30/19 24, 08/24/2022, 08/20/2021, Additional history exists RSV VACCINE (60+ or ) (1 - 1-dose 75+ series) 2033 Procedures Procedure Name Priority Date/Time Associated Diagnosis Comments MAMMO DIAG BILAT 3D LUCIE W OR WO CAD Routine 08/30/2023 12:45 PM CDT Malignant neoplasm of upper-inner quadrant of right breast in female, estrogen receptor positive (CMS/HCC) Fibrocystic breast changes of both breasts HEMOGLOBIN A1C Routine 04/28/2021 from Last 3 Months or Most Recently Relevant to Health Maintenance Results * MAMMO DIAG BILAT 3D LUCIE W OR WO CAD (08/30/2023 12:45 PM CDT) Anatomical Region Laterality Modality Breast Bilateral Mammography 08/30/2023 12:4 5 PM CDT Impressions 08/30/2023 3:11 PM CDT IMPRESSION: No evidence of malignancy. No significant interval change. RECOMMENDATION: Bilateral annual routine mammography. ?? OVERALL FINAL ASSESSMENT: BI-RADS CATEGORY 2: Benign findings. DICTATION LOCATION: [facility] Narrative 08/30/2023 3:11 PM CDT EXAM: BILATERAL DIGITAL DIAGNOSTIC MAMMOGRAPHY WITH TOMOSYNTHESIS AND CAD EXAM DATE: 08/30/2023 INDICATION: Right breast conservation therapy. Fibrocystic breast changes. Bilateral core biopsies. TECHNIQUE: Low Dose full field Digital Breast tomosynthesis examination was performed with 2D and 3D acquisitions. ??Examination is read in conjunction with computer aided detection. COMPARISON: 2022. BREAST COMPOSITION: The breasts are heterogeneously dense, which may obscure small masses. FINDINGS: Redemonstration of the right breast conservation therapy changes. There is no suspicious mass or calcification within either breast. Bilateral biopsy clips are redemonstrated. Procedure Note Mere Hdez MD - 08/30/2023 EXAM: BILATERAL DIGITAL DIAGNOSTIC MAMMOGRAPHY WITH TOMOSYNTHESIS AND CAD EXAM DATE: 08/30/2023 INDICATION: Right breast conservation therapy. Fibrocystic breast changes. Bilateral core biopsies. TECHNIQUE: Low Dose full field Digital Breast tomosynthesis examination was performed with 2D and 3D acquisitions. Examination is read in conjunction with computer aided detection. COMPARISON: 2022. BREAST COMPOSITION: The breasts are heterogeneously dense, which may obscure small masses. FINDINGS: Redemonstration of the right breast conservation therapy changes. There is no suspicious mass or calcification within either breast. Bilateral biopsy clips are redemonstrated. IMPRESSION: No evidence of malignancy. No significant interval change. RECOMMENDATION: Bilateral annual routine mammography. OVERALL FINAL ASSESSMENT: BI-RADS CATEGORY 2: Benign findings. DICTATION LOCATION: [facility] Marixa Rosario MD MAMMO ORDERABLES Final R esult * HEMOGLOBIN A1C (04/28/2021) Blood us Abstract Provider CHEMISTRY ORDERABLES Final Res ult from Last 3 Months or Most Recently Relevant to Health Maintenance Insurance [employer] CHOICE PPO MCR [employer] CHOICE PPO MCR Care Teams Global Ceo Relationship Specialty Start Date End Date James Agudelo MD [address] [facility] [address] [place] [phone] PCP - General Family Practice 10/26/17
--- OUTSIDE RECORDS SUMMARY | 2024-07-13 02:33 | XMS_ITS | Clinical Summary ---
Author Organization [facility] Address [address] [place] [address]. [place] [address] [place] [address] Care Team Providers Care Linux Unix Administrator Name Role Phone James Agudelo MD Primary Care Provider [phone] Allergies Active Allergy Reactions Criticality Noted Date Comments Codeine Nausea and Vomiting 07/05/2024 Gold-Containing Drug Products Contact Dermatitis 07/05/2024 Medications dilTIAZem ER 60 MG 12 hr capsule Take 1 capsule (60 mg total) by mouth nightly. Active fenofibrate (TRICOR) 54 MG tablet Take 1 tablet (54 mg total) by mouth nightly. Active metFORMIN (GLUCOPHAGE) 500 MG tablet Take 1 tablet (500 mg total) by mouth daily with breakfast. Active losartan (COZAAR) 25 MG tablet Take 1 tablet (25 mg total) by mouth nightly. Active atorvastatin (LIPITOR) 10 MG tablet Take 1 tablet (10 mg total) by mouth nightly at bedtime. Active anastrozole (ARIMIDEX) 1 MG tablet Take 1 tablet by mouth nightly. Active insulin glargine (LANTUS) 100 UNIT/ML injection (PEN) Inject 34 Units into the skin every morning. Active Semaglutide (OZEMPIC, 2 MG/DOSE, SC) Inject 2 mg into the skin once a week. Active Multiple Vitamin (MULTIVITAMIN ADULT OR) Take 1 tablet by mouth daily. Active Vitamin D3 (CHOLECALCIFERO L) 50 mcg tablet Take 1 tablet (50 mcg total) by mouth nightly. Active Encounters Date Type Department Care Team Description 07/13/2024 10:28 AM PREFITTER DOORS - 07/13/2024 11:56 AM PREFITTER DOORS Surgery [facility] [place] [address] [place], Luis Alfredo, DPM REMOVAL OF PAINFUL HARDWARE LEFT FOOT 07/13/2024 10:28 AM PREFITTER DOORS Anesthesia Event [facility] [place] [address] Yue Tan CNP 07/13/2024 10:28 AM PREFITTER DOORS Hospital Encounter [facility] [place] [address] [place], Luis Alfredo, DPM from Last 3 Months Family History Medical History Relation Comments Diabetes Other Relation Status Comments Other Social History Tobacco Use Types Packs/Day Years Used Date Smoking Tobacco: Never Smokeless Tobacco: Never Tobacco Cessation:Counseling Given: Not Answered Alcohol Use Standard Drinks/Week Comments Not Currently 0 (1 standard drink = 0.6 oz pur e alcohol) Comments No Sex and Gender Information Value Date Recorded Sex Assigned at Not on file Legal Sex Female 7:25 PM CDT Gender Identity Not on file Sexual Orientation Not on file Last Filed Vital Signs Vital Sign Reading Time Taken Comments Blood Pressure - - Pulse - - Temperature - - Respiratory Rate - - Oxygen Saturation - - Inhaled Oxygen Concentration - - Weight 80.3 kg (177 lb) 07/05/2024 12:27 PM PREFITTER DOORS Height 167.6 cm (5' 6 ) 07/05/2024 12:27 PM PREFITTER DOORS Body Mass Index 28.57 07/05/2024 12:27 PM PREFITTER DOORS Plan of Treatment Scheduled Procedures Name Priority Associated Diagnoses Date/Ti me REMOVAL PLATE SCREW OR PIN PAINFUL HARDWARE 07/13/2024 10:28 AM PREFITTER DOORS Health Maintenance Due Date Last Done Comments Colorectal Cancer Screening Colonoscopy (10 Years) 1960 Hepatitis C 01/18/1976 DTaP, Tdap and Td Vaccines (1 - Tdap) 1977 Mammogram Screening 1998 Zoster Vaccines (1 of 2) 01/18/2008 Annual Medicare Wellness Visit 2023 Dexa Scan (General) 2023 Pneumococcal Vaccine: 65+ Years (1 of 1 - PCV) 2023 COVID-19 Vaccine ( - season) 2024 07/01/2021, 09/11/2020, 08/21/2020 RSV Immunization or 60+ Years Completed 05/30/2023 Influenza Adult Completed 05/08/2024, 05/20, 02/26/2020, Additional history exists Meningococcal B Vaccine Aged Out No l onger eligible based on patient's age to complete this topic Meningococcal Vaccine Aged Out No aileen hector eligible based on patient's age to complete this topic RSV Immunizations Under 20 Months Aged Out No longer eligible based on patient's age to complete this topic Insurance [employer] Care Teams Linux Unix Administrator Relationship Specialty Start Date End Date James Agudelo MD [address] [place] [address] PCP - General FAMILY PRACTICE 07/04/24
--- OUTSIDE RECORDS SUMMARY | 2024-07-13 02:33 | XMS_ITS | Patient Health Record ---
Author Organization [facility] Address [address] [place], [place] [id number] Care Team Providers Care Metalsmith Helper Name Role Phone JOSIAH LEACH Unavailable [phone] James Agudelo Unavailable Unavailable Allergies Allergen (clinical drug ingredient) Drug/Non Drug Allergy documented on EMR Reaction Allergy Type Onset Date Status codeine Codeine Unknown Drug Allergy Active Gold and/or gold compound (FN) Gold-containing Drug Products Unknown Drug Allergy Active Reason For Referral No Information Medications Medication SIG (Take, Route, Frequency, Duration) Notes Start Date End Date Status Droplet Pen Eldridge 31G X 8 MM for 90 Days Active Anastrozole 1 MG Oral for 90 Days Active Losartan Potassium 25 MG Oral for 90 Days Active metFORMIN HCl ER 500 MG Oral for 90 Days Active NovoLOG FlexPen 100 UNIT/ML Subcutaneous for 90 Days Act rodney HYDROcodone-Acetaminophen 5-325 MG 1 tablet as needed Orally every 4-6 hrs As needed for pain. 07/12/2024 Active Levemir FlexPen 100 UNIT/ML Subcutaneous for 90 Days Act rodney LORazepam 0.5 MG 1 TABLET BY MOUTH 1 HR PRIOR TO TEST, MAY REPEAT AT TIME OF TEST IF NEEDED Oral for 1 Days Active dilTIAZem HCl 60 MG Oral for 90 Days Active Fenofibrate 54 MG Oral for 90 Days Active Atorvastatin Calcium 10 MG Oral for 90 Days Active Encounters Encounter Location Date Provider Diagnosis [facility] [address] [place], [place] [id number] 05/21/2024 JOSIAH SNOOK Pain due to internal orthopedic prosthetic devices, implants and grafts, initial encounter T84.84XA and Left foot pain M79.672 [facility] [address] [place], [place] [id number] 06/05/2024 JOSIAH LEACH [facility] [address] [facility] [address] [place], [place] [id number] 07/12/2024 JOSIAH LEACH Assessments Encounter Date Diagnosis (ICD Code) Assessment Notes Treatment Notes Treatment Clinical Notes Section Notes 05/21/2024 Pain due to internal orthopedic prosthetic devices, implants and grafts, initial encounter (ICD-10 - T84.84XA) Surgical Consult Hardware removal: We discussed both conservative and surgical treatment options. We discussed the intra-operative and post-operative treatment course. We discussed the risks and complications including, but not limited to: pain, infection, swelling, numbness, under-correction, over-correction, stiffness, no improvement, and need for further surgery. No guarantees were given, nor implied. Questions encouraged and answered. Consent reviewed and placed in chart. The following procedures are proposed: hardware removal (K-wire) left foot 05/21/2024 Left foot pain (ICD-10 - M79.672) Plan Of Treatment Next Appt Details Provider Name:JOSIAH LEACH, 10:00:00 AM, [address] [place], [id number], Provider Name:JOSIAH LEACH, 01:10:00 PM, [address] [facility] [address], [place], [place], [id number], Insurance Providers Payer Name Payer Address Payer Phone Subscriber Number Group Number Insured Name Patient Relationship to Insured Coverage Start Date Coverage End Date [facility] [address] [place] [address] [id number] DEBBY MEJIAS Self - patient is the insured Medicare Part B [facility] [address] [facility] [place] [address] [id number] DEBBY MEJIAS Self - patient is the insured Medical (General) History Medical History History ICD Code Cancer (type of cancer) Leg/Feet cramps Sleep apnea Diabetic
--- OUTSIDE RECORDS SUMMARY | 2024-07-13 02:33 | XMS_ITS ---
Author Organization [facility] Address [address] [place], [place] [phone] Care Team Providers Care Blueprint Cutter Name Role Phone JOSIAH LEACH Unavailable [phone] James Agudelo Unavailable Unavailable Allergies Allergen (clinical drug ingredient) Drug/Non Drug Allergy documented on EMR Reaction Allergy Type Onset Date Status codeine Codeine Unknown Drug Allergy Active Gold and/or gold compound (FN) Gold-containing Drug Products Unknown Drug Allergy Active REASON FOR VISIT The patient is having pinpoint pain to the left foot, behind the great toe. This toe had bunion surgery many years ago Medications Medication SIG (Take, Route, Frequency, Duration) Notes Start Date End Date Status Droplet Pen Goodman 31G X 8 MM for 90 Days Active Anastrozole 1 MG Oral for 90 Days Active Levemir FlexPen 100 UNIT/ML Subcutaneous for 90 Days Act rodney LORazepam 0.5 MG 1 TABLET BY MOUTH 1 HR PRIOR TO TEST, MAY REPEAT AT TIME OF TEST IF NEEDED Oral for 1 Days Active Atorvastatin Calcium 10 MG Oral for 90 Days Active Losartan Potassium 25 MG Oral for 90 Days Active metFORMIN HCl ER 500 MG Oral for 90 Days Active NovoLOG FlexPen 100 UNIT/ML Subcutaneous for 90 Days Act rodney dilTIAZem HCl 60 MG Oral for 90 Days Active Fenofibrate 54 MG Oral for 90 Days Active Encounters Encounter Location Date Provider Diagnosis [facility] [address] [place], [place] [phone] 05/21/2024 JOSIAH SNOOK Pain due to internal orthopedic prosthetic devices, implants and grafts, initial encounter T84.84XA and Left foot pain M79.672 Assessments Encounter Date Diagnosis (ICD Code) Assessment [...] pain (ICD-10 - M79.672) Plan Of Treatment Treatment Notes Assessment Notes Pain due to internal orthope dic prosthetic devices, implants and grafts, initial encounter Surgical Consult Hardware removal: We discussed both [...] are proposed: hardware removal (K-wire) left foot Next Appt Details Follow Up: prn, Reason: Obta in post-op xrays left foot Provider Name:JOSIAH LEACH, 10:00:00 AM, [address] [place], [place], [id number], Provider Name:JOSIAH LEACH, 01:10:00 PM, [address], [id number], Progress Notes * DEBBY MEJIAS MDOB:1959 (64 yo F)Acc No.[id number]:05/21/2024 Patient:?DEBBY MEJIAS Provider:?Josiah Leach DPM :1960???Age:64 Y???Sex:Female D ate:05/21/2024 Address:[address] [place], [place] [address] Subjective: * Chief Complaints: * ???The patient is having pin point pain to the left foot, behind the great toe. This toe had bunion surgery many years ago * HPI: ???HPI:?New Complaint?Established patient presents with a new complaint. Patient complains of an issue to pain located on the top of left foot. Patient states she has had this problem for a couple of weeks. Patient denies any injury. Patient states pain is present after walking. Patient states foot throbs when pain is severe. MA: LB.? * ROS:?General / Constitutional:?Patient denies?chills, fever, weakness, night sweats.?Musculoskeletal:?Patient denies?childhood foot problems, weakness.?Patient complains of?h/o bunion surgery.?Peripheral Vascular:?Patient denies?ulceration of feet, cold extremities.?Skin:?Patient denies?ulcerations, discoloration.?Neurologic:?Patient denies?balance difficulty, confusion, difficulty speaking, dizziness.? * Medical History:? * Surgical History:? * Hospitalization/Major Diagno stic Procedure:? * Family History:?Father: PRN - Father: :: Cancer,,known absent .?Mother: PRN - Mother: :: Diabetes,,known absent , :: Arthritis,,known absent .?Brother: SIB - Brother: .? * Social History:?Migrated Social History:?Migrated Social History: Alcohol intake : , History of tobacco use : , Smoking Status : Never smoked. * Medications:?TakingdilTIAZem HCl 60 MG Tablet Oral Fenofibrate 54 MG Tablet Oral Losartan Potassium 25 MG Tablet Oral metFORMIN HCl ER 500 MG Tablet Extended Release 24 Hour Oral NovoLOG FlexPen 100 UNIT/ML Solution Pen-injector Subcutaneous Levemir FlexPen 100 UNIT/ML Solution Pen-injector Subcutaneous Droplet Pen Goodman 31G X 8 MM Miscellaneous Anastrozole 1 MG Tablet Oral Atorvastatin Calcium 10 MG Tablet Oral LORazepam 0.5 MG Tablet 1 TABLET BY MOUTH 1 HR PRIOR TO TEST, MAY REPEAT AT TIME OF TEST IF NEEDED Oral Medication List reviewed and reconciled with the patientTaking dilTIAZem HCl 60 MG Tablet Oral Taking Fenofibrate 54 MG Tablet Oral Taking Losartan Potassium 25 MG Tablet Oral Taking metFORMIN HCl ER 500 MG Tablet Extended Release 24 Hour Oral Taking NovoLOG FlexPen 100 UNIT/ML Solution Pen-injector Subcutaneous Taking Levemir FlexPen 100 UNIT/ML Solution Pen-injector Subcutaneous Taking Droplet Pen Goodman 31G X 8 MM Miscellaneous Taking Anastrozole 1 MG Tablet Oral Taking Atorvastatin Calcium 10 MG Tablet Oral Taking LORazepam 0.5 MG Tablet 1 TABLET BY MOUTH 1 HR PRIOR TO TEST, MAY REPEAT AT TIME OF TEST IF NEEDED Oral Medication List reviewed and reconciled with the patient * Allergies:?Gold-containing D rug ProductsCodeineno[Allergies Verified] Objective: * Vitals:? * Examination: ???Constitutional: ?Constitutional?The patient is awake, alert, well developed, well groomed and well nourished.?Dermatologic: ?Skin findings:?Skin is warm, dry, supple with no breaks in the skin.?Vascular: ?Dorsalis pedis pulse:?2/4, bilateral.?Posterior tibial pulse:?2/4, bilateral.?Capillary refill:?less than 3 seconds.?Edema:?No edema, bilateral.?Neurologic: ?Gross sensation?Gross sensation is intact to light touch.?Musculoskeletal: ?Muscle Strength?Muscle strength is 5/5 in regards to dorsiflexion, plantarflexion, inversion, and eversion in bilateral lower extremities.?Pain on palpation?there is a raised area just proximal to the 1st metatarsal head of the left foot.? It causes pain with palpation.? A lesion marker is placed over this area.?Radiographs: ?Left Foot?There is a radiographic lesion marker placed on the 1st ray.? Directly deep to the marker is a K-wire with the bent area pointing out consistent with hardware failure.? Assessment: * Assessment: 1.?Pain due to internal orth opedic prosthetic devices, implants and grafts, initial encounter - T84.84XA (Primary)???2.?Left foot pain - M79.672??? Plan: * Treatment: * Procedure Codes:?37188 X-RAY EXAM OF FOOT, Modifiers: LT * Follow Up:?prn (Reason: Obta in post-op xrays left foot) * Billing Information: * Visit Code:? 53918 Office Visit, Est Pt., Level 3. * Procedure Codes:? 26403 X-RAY EXAM OF FOOT. Modifiers: LT * IBILITY ANALYST Sign off status: Completed true * Provider:?Josiah Leach DPM Date:?05/21/20 Generated for Viktoriya perdomo/Kelly/eTransmitting on:?07/13/2024 02:33 AM ELIGIBILITY ANALYST History and Physical Notes * HPI (History of Present Illness) Category Sub-Category Detail Notes Category Not es HPI New Complaint Established emanuel ent presents with a new complaint. Patient complains of an issue to pain located on the top of left foot. Patient states she has had this problem for a couple of weeks. Patient denies any injury. Patient states pain is present after walking. Patient states foot throbs when pain is severe. MA: LB Examination Category Sub-Category Detail Notes Category Not es Dermatologic Skin findings: Skin is warm, dr y, supple with no breaks in the skin Neurologic Gross sensation Gross sensation is intact to light touch Vascular Dorsalis pedis pulse: 2/4, bilateral Edema: No edema, bilateral Capillary refill: less than 3 seconds Posterior tibial pulse: 2/4, bilateral Musculoskeletal Muscle Strength Muscle strength is 5/5 in regards to dorsiflexion, plantarflexion, inversion, and eversion in bilateral lower extremities Pain on palpation there is a raised ar ea just proximal to the 1st metatarsal head of the left foot. It causes pain with palpation. A lesion marker is placed over this area Constitutional Constitutional The patient is a wake, alert, well developed, well groomed and well nourished Radiographs Left Foot There is a radio graphic lesion marker placed on the 1st ray. Directly deep to the marker is a K-wire with the bent area pointing out consistent with hardware failure
--- OUTSIDE RECORDS SUMMARY | 2024-07-13 02:33 | XMS_ITS | Clinical Summary ---
Author Organization [employer] [facility] [employer] Address [address] [place] [address] Care Team Providers Care Epidemiology Intern Name Role Phone James Agudelo MD Primary Care Provider [phone] Source Comments [facility] [employer] [employer],non-owned Affiliates and Associated Physician Practices is amultiple site organization consisting of ambulatory clinics and hospital sitesin [place], [place], [place] and [place]. This disclosure is being madepursuant to the Care Everywhere program and may not contain all information available regarding this patient. Last updated 18.[employer] [employer] Medications * Be aware that medications may [...] 09/30/2016 Eczematous dermatitis of left eyelid 09/30/2016 Family History Medical History Relation Name Comments Allergy (Severe) Neg Hx CVA Neg Hx Cancer Neg Hx Cancer - Breast Neg Hx Cancer - Other Neg Hx Cancer - Skin, Melanoma Neg Hx Cancer - Skin, Non Melanoma Neg Hx Eczema Neg Hx Hemophilia Neg Hx Psoriasis Neg Hx Rashes/Skin Problems Neg Hx Social History Tobacco Use Types Packs/Day Years Used Date Smoking Tobacco: Never Smokeless Tobacco: Never Alcohol Use Standard Drinks/Week Comments Yes 0 (1 standard drink = 0.6 oz pur e alcohol) Sex and Gender Information Value Date Recorded Sex Assigned at Not on file Gender Identity Not on file Sexual Orientation Not on file Plan of Treatment Health Maintenance Due Date Last Done Comments BONE DENSITY TESTING 1960 COLOGUARD (AGES 45-75) - COL ON CA SCREENING 1958 COLON MONITORING 1958 COLONOSCOPY - COLON CA SCREENING 1958 CT COLONOGRAPHY - COLON CA SCREENING 1960 Colorectal Cancer Screening 1958 FIT - COLON CA SCREENING 1958 FLEX SIG - COLON CA SCREENING 1958 MAMMOGRAM 1958 HEPATITIS C SCREENING 01/13/1976 DTAP/TDAP/TD VACCINES (1 - Tdap) 1977 PNEUMOCOCCAL VACCINE 50+ (1 of 1 - PCV) 01/18/2008 ZOSTER VACCINE (1 of 2) 01/18/2008 COVID-19 VACCINE ( - 2023-2 5 season) 2024 INFLUENZA VACCINE (#1) 2024 DEPRESSION SCREENING 06/20/2024 Respiratory Syncytial Virus (RSV) Vaccine Pt: or over 60 yrs (1 - 1-dose 75+ series) 2033 HEPATITIS B VACCINE Aged Out No longe r eligible based on patient's age to complete this topic HIB VACCINE Aged Out No longer eligi ble based on patient's age to complete this topic HPV VACCINE Aged Out No longer eligi ble based on patient's age to complete this topic MENINGOCOCCAL (Group B) VACCINE Aged Out No longer eligible based on patient's age to complete this topic MENINGOCOCCAL VACCINE Aged Out No aileen hector eligible based on patient's age to complete this topic Care Teams Epidemiology Intern Relationship Specialty Start Date End Date James Agudelo MD [address] [place] [address] PCP - General 03/12/15
--- OUTSIDE RECORDS SUMMARY | 2024-07-13 02:33 | XMS_ITS | Encounter Summary ---
Author Organization [facility] Address [address] [place] [address] Care Team Providers Care Wood Turning Lathe Operator Name Role Phone James Agudelo MD Primary Care Provider [phone] Encounter Details Date Type Department Care Team (Late Contact Info) Description 01/18/2019 Chart Note [facility] Radiation Therapy [address] [place] [address] [place] [address] [place] [address] Social History Tobacco Use Types Packs/Day Years Used Date Smoking Tobacco: Never Smokeless Tobacco: Never Alcohol Use Standard Drinks/Week Comments Yes 2 (1 standard drink = 0.6 oz pur e alcohol) socially Comments No Sex and Gender Information Value Date Recorded Sex Assigned at Not on file Legal Sex Female 4:27 PM CDT Gender Identity Not on file Sexual Orientation Not on file documented as of this encounter Plan of Treatment Upcoming Encounters Date Type Department Care Team (Late Contact Info) Description 09/18/2024 2:15 PM CDT Office Visit [facility] Oncology and Hematology - [place] [address] [facility] [facility] [address] [place] [address] Bhargav Garza MD [address] [facility] [address] [place] [address] documented as of this encounter Visit Diagnoses Not on filedocumented in this encounter Care Teams Wood Turning Lathe Operator Relationship Specialty Start Date End Date James Agudelo MD [address] [facility] [address] [place] [address] PCP - General Family Practice 10/26/17 documented as of this encounter
== END 2024-07-11 14:53 | disposition home or self-care (01) ==
PROVIDERS: PCP Family Medicine; Visit Provider Family Medicine
DX: E11.9 Type 2 diabetes mellitus without complications (principal); I10 Essential (primary) hypertension; Z01.818 Encounter for other preprocedural examination
CPT/HCPCS: 36415; 71046; 80053; 85025

== ENCOUNTER 2024-09-04 13:18 | Outpatient (CLI) | payer MEDICARE, SELFPAY ==
--- OUTSIDE RECORDS SUMMARY | 2024-09-04 14:52 | XMS_ITS | Clinical Summary ---
Author Organization [employer] [facility] Address [address] [place] [address] Care Team Providers Care Substitute Bus Driver Name Role Phone James Agudelo MD Primary Care Provider [phone] Source Comments [facility] [employer],non-owned Affiliates and Associated Physician Practices is amultiple site organization consisting of ambulatory clinics and hospital sitesin [place], [place], [place] and [place]. This disclosure is being madepursuant to the Care Everywhere program and may not contain all information available regarding this patient. Last updated 18.[employer] Medications * Be aware that medications may [...] to complete this topic MENINGOCOCCAL (Group B) VACC INE SHARED DECISION-MAKING Aged Out No longer eligibl e based on patient's age to complete this topic MENINGOCOCCAL GROUPS A/C/Y/W VACCINE Aged Out No longer eligible b ased on patient's age to complete this topic Care Teams Substitute Bus Driver Relationship Specialty Start Date End Date James Agudelo MD [address] [place] [address] PCP - General 03/12/15
--- OUTSIDE RECORDS SUMMARY | 2024-09-04 14:52 | XMS_ITS | Patient Health Record ---
Author Organization [facility] Address [address] [place], [place] [id number] Care Team Providers Care Survival Equipment Repairer Name Role Phone JOSIAH LEACH Unavailable [phone] James Agudelo Unavailable Unavailable Allergies Allergen (clinical drug ingredient) Drug/Non Drug Allergy documented on EMR Reaction Allergy Type Onset Date Status codeine Codeine Unknown Drug Allergy Active Gold and/or gold compound (FN) Gold-containing Drug Products Unknown Drug Allergy Active Reason For Referral No Information Medications Medication SIG (Take, Route, Frequency, Duration) Notes Start Date End Date Status dilTIAZem HCl 60 MG Oral for 90 Days Active Fenofibrate 54 MG Oral for 90 Days Active HYDROcodone-Acetaminophen 5-325 MG 1 tablet as needed Orally every 4-6 hrs As needed for pain. 07/12/2024 Active Atorvastatin Calcium 10 MG Oral for 90 Days Active LORazepam 0.5 MG 1 TABLET BY MOUTH 1 HR PRIOR TO TEST, MAY REPEAT AT TIME OF TEST IF NEEDED Oral for 1 Days Active Droplet Pen [place] 31G X 8 MM for 90 Days Active Anastrozole 1 MG Oral for 90 Days Active NovoLOG FlexPen 100 UNIT/ML Subcutaneous for 90 Days Act rodney Levemir FlexPen 100 UNIT/ML Subcutaneous for 90 Days Act rodney Losartan Potassium 25 MG Oral for 90 Days Active metFORMIN HCl ER 500 MG Oral for 90 Days Active Vital Signs Height-cm 170.18 cm 07/19/2024 Weight-kg 89.81 kg 07/19/2024 Height 67.00 in 07/19/2024 Weight 198 lbs 07/19/2024 BMI 31.01 kg/m2 07/19/2024 Encounters Encounter Location Date Provider Diagnosis [facility] [place] [id number] 07/13/2024 JOSIAH SNOOK [facility] [address] [place], [place] [id number] 05/21/2024 JOSIAH SNOOK Pain due to internal orthopedic prosthetic devices, implants and grafts, initial encounter T84.84XA and Left foot pain M79.672 [facility] [address] [place], [place] [id number] 07/19/2024 JOSIAH SNOOK Pain due to internal orthopedic prosthetic devices, implants and grafts, subsequent encounter T84.84XD ; Left foot pain M79.672 and Encounter for other specified surgical aftercare Z48.89 [facility] [address] [place], [place] [id number] 08/02/2024 JOSIAH SNOOK Pain due to internal orthopedic prosthetic devices, implants and grafts, subsequent encounter T84.84XD and Encounter for other specified surgical aftercare Z48.89 [facility] [address] [place], [place] [id number] 06/05/2024 JOSIAH SNOOK [facility] [address] [place], [place] [id number] 07/12/2024 JOSIAH SNOOK Assessments Encounter Date Diagnosis (ICD Code) Assessment [...] 05/21/2024 Left foot pain (ICD-10 - M79.672) 07/19/2024 Pain due to internal orthopedic prosthetic devices, implants and grafts, subsequent encounter (ICD-10 - T84.84XD) Dressing Change: The old dressing was removed. Utilizing aseptic technique, a new sterile compression dressing was applied. Patient was instructed to keep it dry and not remove it. Continue post-operative restrictions. Keep foot and dressing dry. Wear surgical shoe at all times when bearing weight. Decrease activity. 07/19/2024 Left foot pain (ICD-10 - M79.672) 08/02/2024 Pain due to internal orthopedic prosthetic devices, implants and grafts, subsequent encounter (ICD-10 - T84.84XD) Suture Removal: The sutures were removed. Surgical Restriction Release: Patient may resume normal bathing. Return to normal shoes. Gradual return to activities as tolerated. Patient instructed to contact the office if any issues arise. 08/02/2024 Encounter for other specified surgical aftercare (ICD-10 - Z48.89) 07/19/2024 Encounter for other specified surgical aftercare (ICD-10 - Z48.89) 07/19/2024 Other Plan Of Treatment No Information Insurance Providers Payer Name Payer Address Payer Phone Subscriber Number Group Number Insured Name Patient Relationship to Insured Coverage Start Date Coverage End Date [address] [place] [address] [id number] DEBBY MEJIAS Self - patient is the insured Medicare Part B [facility] [address] [place] [address] [id number] DEBBY MEJIAS Self - patient is the insured Medical (General) History Medical History History ICD Code Cancer (type of cancer) Leg/Feet cramps Sleep apnea Diabetic
--- OUTSIDE RECORDS SUMMARY | 2024-09-04 14:52 | XMS_ITS ---
Author Organization [facility] Address [address] [place], [place] [phone] Care Team Providers Care Box Office Attendant Name Role Phone JOSIAH LEACH Unavailable [phone] James Agudelo Unavailable Unavailable Allergies Allergen (clinical drug ingredient) Drug/Non Drug Allergy documented on EMR Reaction Allergy Type Onset Date Status codeine Codeine Unknown Drug Allergy Active Gold and/or gold compound (FN) Gold-containing Drug Products Unknown Drug Allergy Active REASON FOR VISIT Patient returns to the office 1 week s/p hardware removal of the left foot. It is tender but doing well Medications Medication SIG (Take, Route, Frequency, Duration) Notes Start Date End Date Status Anastrozole 1 MG Oral for 90 Days Active Atorvastatin Calcium 10 MG Oral for 90 Days Active LORazepam 0.5 MG 1 TABLET BY MOUTH 1 HR PRIOR TO TEST, MAY REPEAT AT TIME OF TEST IF NEEDED Oral for 1 Days Active HYDROcodone-Acetaminophen 5-325 MG 1 tablet as needed Orally every 4-6 hrs As needed for pain. 07/12/2024 Active Droplet Pen [place] 31G X 8 MM for 90 Days Active Losartan Potassium 25 MG Oral for 90 Days Active Fenofibrate 54 MG Oral for 90 Days Active metFORMIN HCl ER 500 MG Oral for 90 Days Active NovoLOG FlexPen 100 UNIT/ML Subcutaneous for 90 Days Act rodney Levemir FlexPen 100 UNIT/ML Subcutaneous for 90 Days Act rodney dilTIAZem HCl 60 MG Oral for 90 Days Active Vital Signs Height 67.00 in 07/19/2024 Weight 198 lbs 07/19/2024 BMI 31.01 kg/m2 07/19/2024 Height-cm 170.18 cm 07/19/2024 Weight-kg 89.81 kg 07/19/2024 Encounters Encounter Location Date Provider Diagnosis [facility] [address] [place], [place] [id number] 07/19/2024 JOSIAH SNOOK Pain due to internal orthopedic prosthetic devices, implants and grafts, subsequent encounter T84.84XD ; Left foot pain M79.672 and Encounter for other specified surgical aftercare Z48.89 Assessments Encounter Date Diagnosis (ICD Code) Assessment Notes Treatment Notes Treatment Clinical Notes Section Notes 07/19/2024 Pain due to internal orthopedic prosthetic [...] 07/19/2024 Left foot pain (ICD-10 - M79.672) 07/19/2024 Encounter for other specified surgical aftercare (ICD-10 - Z48.89) 07/19/2024 Other Plan Of Treatment Treatment Notes Assessment Notes Pain due to internal orthope dic prosthetic devices, implants and grafts, subsequent encounter Dressing Change: The old dressing was removed. Utilizing aseptic technique, a new sterile compression dressing was applied. Patient was instructed to keep it dry and not remove it. Continue post-operative restrictions. Keep foot and dressing dry. Wear surgical shoe at all times when bearing weight. Decrease activity. Next Appt Details Follow Up: 2 Weeks, Reason: Suture removal Progress Notes * DEBBY MEJIAS MDOB:1959 (64 yo F)Acc No.[id number]:07/19/2024 Patient: DEBBY NG Provider: Helene Leach DPM :1960 A ge:64 Y S ex:Female Date:07/19/2024 Address:[address] [place], [place] [id number] Subjective: * Chief Complaints: * P atient returns to the office 1 week s/p hardware removal of the left foot. It is tender but doing well * HPI: H PI: Follow Up Visit P atient presents for follow up visit for post operative on the left foot. Patient states it is better, but she is keeping her foot elevated and if she is doing to much it hurts. , MA: LENARD. * Medical History: * Surgical History: * Hospitalization/Major Diagno stic Procedure: * Family History: F ather: PRN - Father: :: Cancer,,known absent . M other: PRN - Mother: :: Diabetes,,known absent , :: Arthritis,,known absent . B rother: SIB - Brother: . * Social History: M igrated Social History: M igrated Social History: Alcohol intake : , History of tobacco use : , Smoking Status : Never smoked. * Medications: T akingdilTIAZem HCl 60 MG Tablet Oral Fenofibrate 54 MG Tablet Oral Losartan Potassium 25 MG Tablet Oral metFORMIN HCl ER 500 MG Tablet Extended Release 24 Hour Oral NovoLOG FlexPen 100 UNIT/ML Solution Pen-injector Subcutaneous Levemir FlexPen 100 UNIT/ML Solution Pen-injector Subcutaneous Droplet Pen [place] 31G X 8 MM Miscellaneous Anastrozole 1 MG Tablet Oral Atorvastatin Calcium 10 MG Tablet Oral LORazepam 0.5 MG Tablet 1 TABLET BY MOUTH 1 HR PRIOR TO TEST, MAY REPEAT AT TIME OF TEST IF NEEDED Oral HYDROcodone-Acetaminophen 5-325 MG Tablet 1 tablet as needed Orally every 4-6 hrs As needed for pain.Medication List reviewed and reconciled with the patientTaking dilTIAZem HCl 60 MG Tablet Oral Taking Fenofibrate 54 MG Tablet Oral Taking Losartan Potassium 25 MG Tablet Oral Taking metFORMIN HCl ER 500 MG Tablet Extended Release 24 Hour Oral Taking NovoLOG FlexPen 100 UNIT/ML Solution Pen-injector Subcutaneous Taking Levemir FlexPen 100 UNIT/ML Solution Pen- injector Subcutaneous Taking Droplet Pen [place] 31G X 8 MM Miscellaneous Taking Anastrozole 1 MG Tablet Oral Taking Atorvastatin Calcium 10 MG Tablet Oral Taking LORazepam 0.5 MG Tablet 1 TABLET BY MOUTH 1 HR PRIOR TO TEST, MAY REPEAT AT TIME OF TEST IF NEEDED Oral Taking HYDROcodone-Acetaminophen 5-325 MG Tablet 1 tablet as needed Orally every 4-6 hrs As needed for pain.Medication List reviewed and reconciled with the patient * Allergies: G old-containing Drug ProductsCodeineno[Allergies Verified] Objective: * Vitals: W t:198lbs, Wt-k.81 kg, Ht: 67.00 in, Ht-cm: 170.18 cm, BMI:31.01Index, Body Surface Area: 2.06. * Examination: D ermatologic: Skin findings: T he dressing is clean and dry. Sutures are in place. No erythema, calor, active drainage, or dehiscence noted. V ascular: Post Op E jose is consistent for post-operative treatment course. N eurologic: Gross sensation G ross sensation is intact to light touch.? M usculoskeletal: Post Op N o calf pain noted. R adiographs: Left Foot T he K-wires in the 1st metatarsal are no longer present. Assessment: * Assessment: 1. P ain due to internal orthopedic prosthetic devices, implants and grafts, subsequent encounter - T84.84XD (Primary) 2 . L eft foot pain - M79.672 3 . E ncounter for other specified surgical aftercare - Z48.89 Plan: * Treatment: * Procedure Codes: 9 9024 POSTOP FOLLOW-UP [id number] X-RAY EXAM OF FOOT, Modifiers: LT * Follow Up: 2 Weeks (Reason: Suture removal) * Billing Information: * Visit Code: * Procedure Codes: 52464 POSTOP FOLLOW-UP VISIT. 46149 X-RAY EXAM OF FOOT. Modifiers: LT * TION MAKE UP OPERATOR Sign off status: Completed true * Provider: Helene Leach DPM Date: 0 07/19/2024 Generated for Viktoriya perdomo/Kelly/Luz Maria on: 0 09/04/2024 02:52 PM CDT History and Physical Notes * HPI (History of Present Illness) Category Sub-Category Detail Notes Category Not es HPI Follow Up Visit Patient presents for follow up visit for post operative on the left foot. Patient states it is better, but she is keeping her foot elevated and if she is doing to much it hurts. , MA: LENARD Examination Category Sub-Category Detail Notes Category Not es Dermatologic Skin findings: The dressing is clean and dry. Sutures are in place. No erythema, calor, active drainage, or dehiscence noted Neurologic Gross sensation Gross sensation is intact to light touch Vascular Post Op Edema is consist ent for post-operative treatment course Musculoskeletal Post Op No calf pain noted Radiographs Left Foot The K-wires in t he 1st metatarsal are no longer present
--- OUTSIDE RECORDS SUMMARY | 2024-09-04 14:52 | XMS_ITS | Clinical Summary ---
Author Organization [facility] Address [address] [place] [place] [address] Care Team Providers Care Maintenance Mechanic Technician Name Role Phone James Agudelo MD Primary Care Provider [phone] Allergies No known active allergies Medications liraglutide (VICTOZA) 0.6 mg/0.1 mL (18 mg/3 mL) Inject by subcutaneous injection daily. Active losartan (COZAAR) 50 mg tablet TAKE 1 TABLET BY MOUTH EVERY DAY 3 11/03/19 19 Active atorvastatin (LIPITOR) 10 mg tablet Take 10 mg by mouth daily with supper. Active ETELVINA PEN NEEDLE 32 gauge x 5/32 Needle INJECT TWICE DAILY 11 02/27/20 19 Active FREESTYLE ANNA 14 DAY READER Misc USE TO CHECK BLOOD SUGAR 0 02/27/20 19 Active fenofibrate nanocrystallized (TRICOR) 48 mg tablet 09/07/19 17 Active ONETOUCH ULTRA BLUE TEST STRIP Strip 03/17/20 19 Active FREESTYLE ANNA 14 DAY SENSOR Kit APPLY ONE SENSORY EVERY 14 DAYS 07/30/19 20 Active flash glucose sensor Kit apply one sensor every 14 days 02/15/20 19 Active diltiaZEM (CARDIZEM) 60 mg tablet TAKE 1 TABLET BY MOUTH EVERY 6 HOURS 10/26/19 20 Active fenofibrate (LOFIBRA) 54 mg TAKE 1 TABLET BY MOUTH EVERY DAY 05/23/20 20 Active losartan (COZAAR) 25 mg tablet TAKE 2 TABLETS BY MOUTH EVERY DAY 04/28/20 20 Active Ozempic 0.25 mg or 0.5 mg(2 mg/1.5 mL) Pen Injector INJECT 0.5 MG (0.4 ML) SUBCUTANEOUSLY WEEKLY 08/19/19 23 Active insulin detemir (LEVEMIR U-100 INSULIN SUBCUT) Inject 24 Units by subcutaneous injection 2 times daily. 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 90 Tablet 1 06/14/20 24 Active Active Problems Patient Care Coordination No te Formatting of this note migh t be different from the original. Primary Care: James Agudelo MD Referring Provider: James Agudelo MD [address] [place] [address] Other: Problem Noted Date Diagnosed Date History [...] Encounters Date Type Department Care Team Description 08/27/[address] [facility] Oncology and Hematology - [place] [address] [place] [address] Bhargav Garza MD Malignant neoplasm of upper-inner quadrant of right breast in female, estrogen receptor positive (CMS/HCC) (Primary Dx) 08/21/2024 External Device Data [facility] AB[facility]CTION Provider, Abstract 08/08/2024 External Device Data [facility] Provider, Abstract 08/08/2024 External Device Data [facility]STRACTION Provider, Abstract 07/18/2024 External Device Data [facility]CTION Provider, Abstract 07/12/2024 External Device Data [facility]STRACTION Provider, Abstract 07/03/2024 External Device Data [facility] ABSTRACTION Provider, Abstract [facility] [address] [place] [address] Anitha Pierson MD Malignant neoplasm of upper-inner quadrant of right breast in female, estrogen receptor positive (CMS/HCC) 06/08/[address] [facility] Oncology and Hematology [facility] [address] [place] [address] Anitha Pierson MD Malignant neoplasm of upper-inner [...] 80 11/01/2023 10:44 AM CDT Temperature 35.9 C (96.7 F) 11/01/2023 10:44 AM CDT Respiratory Rate 14 11/01/2023 10:44 AM CDT [...] 09/18/2024 2:15 PM CDT Office Visit [facility] Oncology and Hemat[facility] [address] [facility] [address] [place] [address] Bhargav Garza MD [address] [facility] [address] [place] [address] Health Maintenance Due Date Last Done Comments DTAP/TDAP/TD VACCINES (1 - Tdap) 1977 COLORECTAL SCREENING 2003 Colorectal Cancer Screening 2003 FIT-DNA Q 3 years 2003 FIT/FOBT Q 1 year 2003 Flex Sig/CT Colonography Q 5 years 2003 PNEUMOCOCCAL VACCINE 50+ YEA RS (1 of 1 - PCV) 01/18/2008 ZOSTER VACCINE (1 of 2) 01/18/2008 OSTEOPOROSIS SCREENING 2023 INFLUENZA VACCINE (#1) 2024 04/13/2019 Pre-Diabetes and Diabetes Screening 04/28/2024 04/28/2021, 02/21/2020 Medicare Advantage ([place]) Preventative Visit/Annual Wellness Visit 06/20/2024 BREAST CANCER SCREENING 08/29/2024 08/30/19 24, 08/24/2022, 08/20/2021, Additional history exists RSV VACCINE (60+ or ) (1 - 1-dose 75+ series) 2033 Procedures Procedure Name Priority Date/Time Associated Diagnosis Comments MAMMO 3D LUCIE DIAGNOSTIC BILAT W OR WO CAD Routine 08/30/2023 12:45 [...] CATEGORY 2: Benign findings. DICTATION LOCATION: Neema Floridalma Narrative 08/30/2023 3:11 PM CDT EXAM: BILATERAL [...] to Health Maintenance Insurance [employer] CHOICE PPO [facility] HUMANA CHOICE PPO MCR Care Teams Maintenance Mechanic Technician Relationship Specialty Start Date End Date James Agudelo MD [address] [facility] [address] [place] [id number] PCP - General Family Practice 10/26/17
--- OUTSIDE RECORDS SUMMARY | 2024-09-04 14:52 | XMS_ITS ---
Author Organization [facility] Address [address] [place], [place] [address] Care Team Providers Care Mechanical Estimator Name Role Phone JOSIAH LEACH Unavailable [phone] James Agudelo Unavailable Unavailable REASON FOR VISIT [facility] SUR[facility]ERY Encounters Encounter Location Date Provider Diagnosis [address] [phone] 07/13/2024 JOSIAH LEACH Plan Of Treatment No Information Progress Notes * DEBBY MEJIAS MDOB:1959 (64 yo F)Acc No.[id number]:07/13/2024 Patient: Shannan MAREKCarlosDEBBY Provider: Helene Leach DPM :1960 A ge:64 Y S ex:Female Date:07/13/2024 Address:[address] [place], [place] [phone] * Billing Information: * Visit Code: * Procedure Codes: * Electronic signature of JOSIAH LEACH DPM on 09/04/2024 at 02:52 PM CDT Sign off status: Pending * Provider: Helene Leach DPM Date: 07/13/2024 Generated for Printi ng/Faxing/eTransmitting on: 0 09/04/2024 02:52 PM CDT
--- OUTSIDE RECORDS SUMMARY | 2024-09-04 14:53 | XMS_ITS ---
Author Organization [facility] Address [address] [place], [place] [phone] Care Team Providers Care Barrer And Tacker Name Role Phone JOSIAH LEACH Unavailable [phone] James Agudelo Unavailable Unavailable Allergies Allergen (clinical drug ingredient) Drug/Non Drug Allergy documented on EMR Reaction Allergy Type Onset Date Status codeine Codeine Unknown Drug Allergy Active Gold and/or gold compound (FN) Gold-containing Drug Products Unknown Drug Allergy Active REASON FOR VISIT Patient returns 3 weeks s/p hardware removal of the left foot Medications Medication SIG (Take, Route, Frequency, Duration) Notes Start Date End Date Status HYDROcodone-Acetaminophen 5-325 MG 1 tablet as needed Orally every 4-6 hrs As needed for pain. 07/12/2024 Active Atorvastatin Calcium 10 MG Oral for 90 Days Active LORazepam 0.5 MG 1 TABLET BY MOUTH 1 HR PRIOR TO TEST, MAY REPEAT AT TIME OF TEST IF NEEDED Oral for 1 Days Active Droplet Pen [place] 31G X 8 MM for 90 Days Active Anastrozole 1 MG Oral for 90 Days Active Fenofibrate 54 MG Oral for 90 Days Active NovoLOG FlexPen 100 UNIT/ML Subcutaneous for 90 Days Act rodney Levemir FlexPen 100 UNIT/ML Subcutaneous for 90 Days Act rodney Losartan Potassium 25 MG Oral for 90 Days Active metFORMIN HCl ER 500 MG Oral for 90 Days Active dilTIAZem HCl 60 MG Oral for 90 Days Active Encounters Encounter Location Date Provider [facility] [address] [facility] [address] [place], [place] [phone] 08/02/2024 JOSIAH SNOOK Pain due to internal orthopedic prosthetic devices, implants and grafts, subsequent encounter T84.84XD and Encounter for other specified surgical aftercare Z48.89 Assessments Encounter Date Diagnosis (ICD Code) Assessment Notes Treatment Notes Treatment Clinical Notes Section Notes 08/02/2024 Pain due to internal orthopedic prosthetic devices, implants and grafts, subsequent encounter (ICD-10 - T84.84XD) Suture Removal: The sutures were removed. Surgical Restriction Release: Patient may resume normal bathing. Return to normal shoes. Gradual return to activities as tolerated. Patient instructed to contact the office if any issues arise. 08/02/2024 Encounter for other specified surgical aftercare (ICD-10 - Z48.89) Plan Of Treatment Treatment Notes Assessment Notes Pain due to internal orthope dic prosthetic devices, implants and grafts, subsequent encounter Suture Removal: The sutures were removed. Surgical Restriction Release: Patient may resume normal bathing. Return to normal shoes. Gradual return to activities as tolerated. Patient instructed to contact the office if any issues arise. Next Appt Details Follow Up: prn, Reason: Progress Notes * DEBBY MEJIAS MDOB:1959 (64 yo F)Acc No.[id number]:08/02/2024 Patient: DEBBY NG Provider: Helene Leach DPM :1960 A ge:64 Y S ex:Female Date:08/02/2024 Address:[address] [place] [address] Subjective: * Chief Complaints: * Hanna franck returns 3 weeks s/p hardware removal of the left foot * HPI: H PI: Follow Up Visit Hanna franck presents for follow-up visit for second post-operative visit. Patient states she is doing well. Patient states she only has some discomfort when she is on her foot for long periods of time. THOMAS LB. * Medical History: * Surgical History: * [...] 100 UNIT/ML Solution Pen-injector Subcutaneous Droplet Pen [place] 31G X 8 MM Miscellaneous Anastrozole 1 [...] Solution Pen- injector Subcutaneous Taking Droplet Pen [place] 31G X 8 MM Miscellaneous Taking Anastrozole [...] old-containing Drug ProductsCodeineno[Allergies Verified] Objective: * Vitals: * Examination: D ermatologic: Skin findings: T he dressing is clean and dry. Sutures are in place. No erythema, calor, active drainage, or dehiscence noted. V ascular: Post Op E jose is consistent for post-operative treatment course. N eurologic: Gross sensation G ross sensation is intact to light touch.? M usculoskeletal: Post Op N o calf pain noted. Assessment: * Assessment: 1. P ain due to internal orthopedic prosthetic devices, implants and grafts, subsequent encounter - T84.84XD (Primary) 2 . E ncounter for other specified surgical aftercare - Z48.89 Plan: * Treatment: * Procedure Codes: 9 9024 POSTOP FOLLOW-UP VISIT * Follow Up: p rn * Billing Information: * Visit Code: * Procedure Codes: 54004 POSTOP FOLLOW-UP VISIT. * LE INSTALLER SUPERVISOR Sign off status: Completed true * Provider: Helene Leach DPM Date: 0 08/02/2024 Generated for Viktoriya perdomo/Kelly/Luz Maria on: 0 09/04/2024 02:52 PM CDT History and Physical Notes * HPI (History of Present Illness) Category Sub-Category Detail Notes Category Not es HPI Follow Up Visit Patient presents for follow-up visit for second post-operative visit. Patient states she is doing well. Patient states she only has some discomfort when she is on her foot for long periods of time. THOMAS LB Examination Category Sub-Category Detail Notes Category [...]
--- OUTSIDE RECORDS SUMMARY | 2024-09-04 14:53 | XMS_ITS | Clinical Summary ---
Author Organization [facility] Address [address] [place] [address] Care Team Providers Care Cnc Router Operator Name Role Phone James Agudelo MD Primary Care Provider Allergies Active Allergy Reactions Criticality Noted Date [...] Date Type Department Care Team Description 07/13/2024 11:07 AM CERTIFIED INDOOR ENVIRONMENTALIST Anesthesia Event [facility] [address] Vitaly Pinzon MD Jarvis, Brittany L, RETAIL ASSOCIATE 07/13/2024 10:28 AM CERTIFIED INDOOR ENVIRONMENTALIST - 07/13/2024 11:56 AM CERTIFIED INDOOR ENVIRONMENTALIST Surgery [facility] [place] [address] Josiah Martinez, DPM REMOVAL OF PAINFUL HARDWARE LEFT FOOT 07/13/2024 8:31 AM CERTIFIED INDOOR ENVIRONMENTALIST - 07/13/2024 1:29 PM CERTIFIED INDOOR ENVIRONMENTALIST Hospital Encounter [facility] [place] [address] Josiah Martinez, DPShannan Discharge Disposition: Home or Self Care (Routine Discharge) 07/13/2024 Travel from Last 3 Months Family History Medical [...] Information Value Date Recorded Sex Assigned at Female 07/13/2024 8:30 AM CERTIFIED INDOOR ENVIRONMENTALIST Legal Sex Female 7:25 PM CDT Gender Identity Not on file Sexual Orientation Not on file Last Filed Vital Signs Vital Sign Reading Time Taken Comments Blood Pressure 159/51 07/13/2024 1:20 PM CERTIFIED INDOOR ENVIRONMENTALIST Pulse 61 07/13/2024 1:20 PM CERTIFIED INDOOR ENVIRONMENTALIST Temperature 36.5 C (97.7 F) 07/13/2024 1:20 PM CERTIFIED INDOOR ENVIRONMENTALIST Respiratory Rate 18 07/13/2024 1:20 PM CERTIFIED INDOOR ENVIRONMENTALIST Oxygen Saturation 100% 07/13/2024 1:20 PM CERTIFIED INDOOR ENVIRONMENTALIST Inhaled Oxygen Concentration - - Weight 82.8 kg (182 lb 8.7 oz) 07/13/2024 9:00 A M CERTIFIED INDOOR ENVIRONMENTALIST Height 167.6 cm (5' 6 ) 07/13/2024 9:00 AM CERTIFIED INDOOR ENVIRONMENTALIST Body Mass Index 29.46 07/13/2024 9:00 AM CERTIFIED INDOOR ENVIRONMENTALIST Plan of Treatment Health Maintenance Due Date Last Done Comments Colorectal Cancer Screening Colonoscopy (10 Years) 1960 Hepatitis C 01/18/1976 DTaP, Tdap and Td Vaccines (1 - Tdap) 1977 Zoster Vaccines (1 of 2) 01/18/2008 Annual Medicare Wellness Visit 2023 Dexa Scan (General) 2023 Pneumococcal Vaccine: 65+ Years (1 of 1 - PCV) 2023 COVID-19 Vaccine (4 - season) 2024 07/01/2021, 09/11/2020, 08/21/2020 Mammogram Screening 08/29/2025 08/30/2023, 08/24/2022, 08/20/2021, Additional history exists RSV Immunization or 60+ Years Completed 05/30/2023 [...] on patient's age to complete this topic Medical Devices Explanted Type Area Bar Back Device Identifier Shelf Expiration Date Model / Serial / Lot K-Wire Explanted:Qty: 1 on 07/13/2024 by Josiah Martinez DPM at [facility] Wire Left: Foot Description:Removed intact. Procedures Procedure Name Priority Date/Time Associated Diagnosis Comments SURG XR FOOT LT 2V Routine 07/13/2024 12:11 PM CERTIFIED INDOOR ENVIRONMENTALIST POCT GLUCOSE - ALBARRAN DOCKED DEVICE Routine 07/13/2024 12:01 PM CERTIFIED INDOOR ENVIRONMENTALIST REMOVAL PLATE SCREW OR PIN 07/13/2024 10:52 AM CERTIFIED INDOOR ENVIRONMENTALIST PAINFUL HARDWARE Case Notes SCHED BY FAX 05/28/[address] US[address] MONTE CARD POCT GLUCOSE - ALBARRAN DOCKED DEVICE Routine 07/13/2024 9:12 AM CERTIFIED INDOOR ENVIRONMENTALIST from Last 3 Months Results * SURG XR FOOT LT 2V (07/13/2024 12:11 PM CERTIFIED INDOOR ENVIRONMENTALIST) Anatomical Region Laterality Modality Foot Radiographic Lisseth ging 07/13/2024 12:3 0 PM CERTIFIED INDOOR ENVIRONMENTALIST Impressions 07/13/2024 12:30 PM CERTIFIED INDOOR ENVIRONMENTALIST Impression: No radiologic interpretation will be issued. The report and documentation of this exam will reside in the patient's permanent medical record and in the attending physician's procedure note. Ordered By: JOSIAH MARTINEZ Interpreted By: Enoch Beavers MD, 07/13/2024 12:30 PM Narrative 07/13/2024 12:30 PM CERTIFIED INDOOR ENVIRONMENTALIST [facility] [address] [address] FLUOROSCOPY CONTROL ONLY Procedure Note Enoch Beavers MD - 07/13/2024 [place] [address] FLUOROSCOPY CONTROL ONLY Impression: No radiologic interpretation will be issued. The report and documentationof this exam will reside in the patient's permanent medical record and inthe attending physician's procedure note. Ordered By: JOSIAH MARTINEZ Interpreted By: Enoch Beavers MD, 07/13/2024 12:30 PM us Josiahmiladys Martinez DPM IMAGES ONLY Final Result * (ABNORMAL) POCT glucose (07/13/2024 12:01 PM CERTIFIED INDOOR ENVIRONMENTALIST) Only the most recent of2 resultswithin the time period is included. GLUCOSE POC 112(H) 70 - 99 mg/dL 07/13/2024 12:02 PM CERTIFIED INDOOR ENVIRONMENTALIST [facility] 07/13/2024 12:0 1 PM CERTIFIED INDOOR ENVIRONMENTALIST Josiah Edna DPM POCT ORDERABLES - DEVICE Final R esult [facility] [address] [place] [address], from Last 3 Months Insurance [employer] Care Teams Cnc Router Operator Relationship Specialty Start Date End Date James Agudelo MD [address] [place] [address] PCP - General FAMILY PRACTICE 07/04/24
--- OUTSIDE RECORDS SUMMARY | 2024-09-04 14:53 | XMS_ITS | Encounter Summary ---
Author Organization [facility] Address [address] [place] [address] Care Team Providers Care Wood Flooring Specialist Name Role Phone James Agudelo MD Primary Care Provider [phone] Encounter Details Date Type Department Care Team (Late Contact Info) Description 01/18/2019 Chart Note [facility] Radiation Therapy [address] [place] [address] [place] [address] [place] [address] Social History Tobacco Use Types [...] Description 09/18/2024 2:15 PM CDT Office Visit [facility] Oncology and Hematology - [place] [address] [facility] [address] [place] [address] Bhargav Garza MD [address] [facility] [address] [place] [address] documented as of this encounter Visit Diagnoses Not on filedocumented in this encounter Care Teams Wood Flooring Specialist Relationship Specialty Start Date End Date James Agudelo MD [address] [facility] [address] [place] [address] PCP - General Family Practice 10/26/17 documented as of this encounter
[2024-09-05 00:29] LABS: Free T4 Free Thyroxine 1.22 ng/dL (0.78-2.19)
[2024-09-05 07:13] LABS: Alanine Aminotransferase 28 U/L (6-35); Albumin Level 4.8 g/dL (3.5-5.1); Alkaline Phosphatase 64 U/L (38-126); Anion Gap 13 mmol/L (4-12); Aspartate Amino Transferase 24 U/L (14-36); Bilirubin,Total 0.2 mg/dL (0.2-1.3); Blood Urea Nitrogen 11 mg/dL (7-17); Calcium 10.7 mg/dL (8.4-10.2); Carbon Dioxide 21 mmol/L (22-30); Chloride 111 mmol/L (98-107); Estimated Glomerular Filt Rate 60; Glucose 142 mg/dL (65-110); Potassium 4.2 mmol/L (3.4-5.0); Sodium 145 mmol/L (137-145)
[2024-09-06 02:39] LABS: CA 15-3 8 U/mL (<32)
== END 2024-09-04 13:19 | disposition home or self-care (01) ==
LOC: ANHLAB 13:21
PROVIDERS: PCP Family Medicine; Referring Provider Internal Medicine Hematology & Oncology; Visit Provider Internal Medicine
DX: E05.90 Thyrotoxicosis, unspecified without thyrotoxic crisis or storm (principal); E11.65 Type 2 diabetes mellitus with hyperglycemia; E78.5 Hyperlipidemia, unspecified; E66.9 Obesity, unspecified; R94.6 Abnormal results of thyroid function studies; Z71.3 Dietary counseling and surveillance; C50.211 Malignant neoplasm of upper-inner quadrant of right female breast; Z17.0 Estrogen receptor positive status [ER+]
CPT/HCPCS: 36415; 80053; 82607; 84439; 84443; 86300

== ENCOUNTER 2024-09-05 08:39 | Outpatient (CLI) | payer MEDICARE, SELFPAY ==
[2024-09-05 09:05] LABS: Basophils Absolute Auto 0.1 K/mm3 (0.0-0.1); Basophils Percent Auto 1.9 % (0.2-1.2); Eosinophils Absolute Auto 0.3 K/mm3 (0-0.3); Hematocrit 37.7 % (37.0-47.0); Hemoglobin 12.9 g/dL (12.0-15.0); Immature Granulocyte Absolute 0.02 K/mm3 (0.00-0.031); Immature Granulocyte Percent A 0.4 % (0-0.5); Lymphocytes Absolute Auto 1.45 K/mm3 (0.9-3.2); Mean Corpuscular HGB Conc 34.2 g/dl (32-36); Mean Corpuscular Hemoglobin 30.9 pg (26-34); Mean Corpuscular Volume 90.4 fl (80-100); Mean Platelet Volume 10.2 fl (7.4-10.4); Monocytes Absolute Auto 0.5 K/mm3 (0.1-0.6); Monocytes Percent Auto 10.1 % (2.6-8.5); Neutrophils Absolute Auto 2.5 K/mm3 (1.3-6.7); Neutrophils Percent Auto 51.6 % (45.5-73.1); Platelet Count Result 253 k/mm3 (150-375); Red Blood Count 4.17 M/mm3 (4.2-5.4); White Blood Count 4.8 K/mm3 (4.5-10.0)
--- OUTSIDE RECORDS SUMMARY | 2024-09-05 09:07 | XMS_ITS | Clinical Summary ---
Author Organization [email or web address] Address [address] [place] [address] Care Team Providers Care Decay Control Operator Name Role Phone James Agudelo MD Primary Care Provider [phone] Source Comments [facility],non-owned Affiliates and Associated Physician Practices is amultiple site organization consisting of ambulatory clinics and hospital sitesin [place], [place], [place] and [place]. This disclosure is being madepursuant to the Care Everywhere program and may not contain all information available regarding this patient. Last updated [email or web address] Medications * Be aware that medications may [...] age to complete this topic Care Teams Decay Control Operator Relationship Specialty Start Date End Date James Agudelo MD [address] [place] [address] PCP - General 03/12/15
--- OUTSIDE RECORDS SUMMARY | 2024-09-05 09:07 | XMS_ITS ---
Author Organization [facility] Address [address] [place], [place] [address] Care Team Providers Care Utility Inspector Name Role Phone JOSIAH LEACH Unavailable [phone] James Agudelo Unavailable Unavailable Allergies Allergen (clinical [...] needed for pain. 07/12/2024 Active Droplet Pen [place] 31G X 8 MM for 90 Days [...] Location Date Provider Diagnosis [facility] [address] [place], [place] [id number] 07/19/2024 JOSIAH SNOOK Pain due to internal [...] * DEBBY MEJIAS MDOB:1959 (64 yo F)Acc No.[id number]:07/19/2024 Patient: DEBBY NG Provider: Helene Leach DPM :1960 A ge:64 Y S ex:Female Date:07/19/2024 Address:[address] [place], [place] [id number] Subjective: * Chief Complaints: * P atient [...] 100 UNIT/ML Solution Pen-injector Subcutaneous Droplet Pen [place] 31G X 8 MM Miscellaneous Anastrozole 1 [...] Solution Pen- injector Subcutaneous Taking Droplet Pen [place] 31G X 8 MM Miscellaneous Taking Anastrozole [...] * Procedure Codes: 9 9024 POSTOP FOLLOW-UP [id number] X-RAY EXAM OF FOOT, Modifiers: LT * Follow Up: 2 Weeks (Reason: Suture removal) * Billing Information: * Visit Code: * Procedure Codes: 86622 POSTOP FOLLOW-UP VISIT. 07118 X-RAY EXAM OF FOOT. Modifiers: LT * TRE PROFESSOR Sign off status: Completed true * Provider: Helene Leach DPM Date: 0 07/19/2024 Generated for Viktoriya perdomo/Kelly/Luz Maria on: 0 09/05/2024 09:07 AM CDT History and Physical Notes * HPI [...]
--- OUTSIDE RECORDS SUMMARY | 2024-09-05 09:07 | XMS_ITS | Clinical Summary ---
Author Organization [facility] Address [address] [place] [address] Care Team Providers Care Psychodramatist Name Role Phone James Agudelo MD Primary Care Provider [phone] Allergies No known active allergies Medications liraglutide [...] MD [address] [place] [address] Other: Problem Noted Date Diagnosed Date History [...] Department Care Team Description 08/27/2024 Orders Only [facility] Oncology and Hematology - [place] [address] [place] [address] Bhargav Garza MD Malignant neoplasm [...] Device Data STL ABSTRACTION Provider, Abstract [facility] [address] [place] [address] Anitha Pierson MD Malignant neoplasm of upper-inner quadrant of right breast in female, estrogen receptor positive (CMS/HCC) 06/08/2024 Refill [facility] Oncology and Hematology [facility] [address] [place] [address] Anitha Pierson MD Malignant neoplasm of upper-inner [...] Description 09/18/2024 2:15 PM CDT Office Visit [facility] Oncology and Hematology [facility] [address] [facility] [address] [place] [address] Bhargav Garza MD [address] [facility] [address] [place] [address] Health Maintenance Due Date Last [...] Diabetes Screening 04/28/2024 04/28/2021, 02/21/2020 Medicare Advantage ([place]) Preventative Visit/Annual Wellness Visit 06/20/2024 BREAST CANCER [...] to Health Maintenance Insurance HU[employer] CHOICE PPO [facility] HU[employer]NA CHOICE PPO MCR Care Teams Psychodramatist Relationship Specialty Start Date End Date James Agudelo MD [address] [facility] [address] [place] [phone] PCP - General Family Practice 10/26/17
--- OUTSIDE RECORDS SUMMARY | 2024-09-05 09:08 | XMS_ITS | Clinical Summary ---
Author Organization [facility] Address [address] [place] [address] Care Team Providers Care Reel Repairer Name Role Phone James Agudelo MD Primary [...] Department Care Team Description 07/13/2024 11:07 AM PARTNER MARKETING MANAGER Anesthesia Event [place] OR [facility] [place] [address] Vitaly Pinzon MD Jarvis, Brittany L, TOPSTITCHER LOCKSTITCH 07/13/2024 10:28 AM PARTNER MARKETING MANAGER - 07/13/2024 11:56 AM PARTNER MARKETING MANAGER Surgery [facility] [place] [address] Josiah Martinez, DPM REMOVAL OF PAINFUL HARDWARE LEFT FOOT 07/13/2024 8:31 AM PARTNER MARKETING MANAGER - 07/13/2024 1:29 PM PARTNER MARKETING MANAGER Hospital Encounter [facility] [place] [address] Josiah Martinez, DPShannan Discharge Disposition: Home or [...] Sex Assigned at Female 07/13/2024 8:30 AM PARTNER MARKETING MANAGER Legal Sex Female 7:25 PM CDT Gender Identity Not on file Sexual Orientation Not on file Last Filed Vital Signs Vital Sign Reading Time Taken Comments Blood Pressure 159/51 07/13/2024 1:20 PM PARTNER MARKETING MANAGER Pulse 61 07/13/2024 1:20 PM PARTNER MARKETING MANAGER Temperature 36.5 C (97.7 F) 07/13/2024 1:20 PM PARTNER MARKETING MANAGER Respiratory Rate 18 07/13/2024 1:20 PM PARTNER MARKETING MANAGER Oxygen Saturation 100% 07/13/2024 1:20 PM PARTNER MARKETING MANAGER Inhaled Oxygen Concentration - - Weight 82.8 kg (182 lb 8.7 oz) 07/13/2024 9:00 A M PARTNER MARKETING MANAGER Height 167.6 cm (5' 6 ) 07/13/2024 9:00 AM PARTNER MARKETING MANAGER Body Mass Index 29.46 07/13/2024 9:00 AM PARTNER MARKETING MANAGER Plan of Treatment Health Maintenance Due Date [...] this topic Medical Devices Explanted Type Area Acquisitions Librarian Device Identifier Shelf Expiration Date Model / Serial / Lot K-Wire Explanted:Qty: 1 on 07/13/2024 by Josiah Martinez DPM at [facility] Wire Left: Foot Description:Removed intact. Procedures Procedure Name Priority Date/Time Associated Diagnosis Comments SURG XR FOOT LT 2V Routine 07/13/2024 12:11 PM PARTNER MARKETING MANAGER POCT GLUCOSE - ALBARRAN DOCKED DEVICE Routine 07/13/2024 12:01 PM PARTNER MARKETING MANAGER REMOVAL PLATE SCREW OR PIN 07/13/2024 10:52 AM PARTNER MARKETING MANAGER PAINFUL HARDWARE Case Notes SCHED BY FAX 05/28/[address] MONTE CARD POCT GLUCOSE - ALBARRAN DOCKED DEVICE Routine 07/13/2024 9:12 AM PARTNER MARKETING MANAGER from Last 3 Months Results * SURG XR FOOT LT 2V (07/13/2024 12:11 PM PARTNER MARKETING MANAGER) Anatomical Region Laterality Modality Foot Radiographic Lisseth ging 07/13/2024 12:3 0 PM PARTNER MARKETING MANAGER Impressions 07/13/2024 12:30 PM PARTNER MARKETING MANAGER Impression: No radiologic interpretation will be issued. The report and documentation of this exam will reside in the patient's permanent medical record and in the attending physician's procedure note. Ordered By: JOSIAH MARTINEZ Interpreted By: Enoch Beavers MD, 07/13/2024 12:30 PM Narrative 07/13/2024 12:30 PM PARTNER MARKETING MANAGER [facility] [address] [address] FLUOROSCOPY CONTROL ONLY Procedure Note Enoch Beavers MD - 07/13/2024 [place] [address] FLUOROSCOPY CONTROL ONLY Impression: No radiologic interpretation will be issued. The report and documentationof this exam will reside in the patient's permanent medical record and inthe attending physician's procedure note. Ordered By: JOSIAH MARTINEZ Interpreted By: Enoch Beavers MD, 07/13/2024 12:30 PM us Josiahmiladys Martinez DPM IMAGES ONLY Final Result * (ABNORMAL) POCT glucose (07/13/2024 12:01 PM PARTNER MARKETING MANAGER) Only the most recent of2 resultswithin the time period is included. GLUCOSE POC 112(H) 70 - 99 mg/dL 07/13/2024 12:02 PM PARTNER MARKETING MANAGER [facility] 07/13/2024 12:0 1 PM PARTNER MARKETING MANAGER Josiah Dorr DPM POCT ORDERABLES - DEVICE Final R esult [facility] [address] [place] [address], from Last 3 Months Insurance [employer] Care Teams Reel Repairer Relationship Specialty Start Date End Date James Agudelo MD [address] [place] [address] PCP - General FAMILY PRACTICE 07/04/24
--- OUTSIDE RECORDS SUMMARY | 2024-09-05 09:08 | XMS_ITS ---
Author Organization [facility] Address [address] [place], [place] [phone] Care Team Providers Care Trapeze Performer Name Role Phone JOSIAH LEACH Unavailable [phone] James Agudelo Unavailable Unavailable Allergies Allergen (clinical [...] Oral for 1 Days Active Droplet Pen [place] 31G X 8 MM for 90 Days [...] Location Date Provider Diagnosis [facility] [address] [facility] [address] [place], [place] [id number] 08/02/2024 JOSIAH SNOOK Pain due to internal [...] * DEBBY MEJIAS MDOB:1959 (64 yo F)Acc No.[id number]:08/02/2024 Patient: DEBBY NG Provider: Helene Leach DPM :1960 A ge:64 Y S ex:Female Date:08/02/2024 Address:[address] [place] [address] Subjective: * Chief Complaints: * Hanna franck [...] 100 UNIT/ML Solution Pen-injector Subcutaneous Droplet Pen [place] 31G X 8 MM Miscellaneous Anastrozole 1 [...] Solution Pen- injector Subcutaneous Taking Droplet Pen [place] 31G X 8 MM Miscellaneous Taking Anastrozole [...] Information: * Visit Code: * Procedure Codes: 53771 POSTOP FOLLOW-UP VISIT. * R SCHOOL PROGRAM TEACHER Sign off status: Completed true * Provider: [...]
--- OUTSIDE RECORDS SUMMARY | 2024-09-05 09:08 | XMS_ITS ---
Author Organization [facility] Address [address] [place], [place] [phone] Care Team Providers Care Compressor Operator Portable Name Role Phone JOSIAH LEACH Unavailable [phone] James Agudelo Unavailable Unavailable REASON FOR VISIT [facility] SURGERY Encounters Encounter Location Date Provider Diagnosis [address] [id number] 07/13/2024 JOSIAH LEACH Plan Of Treatment No Information Progress Notes * DEBBY MEJIAS MDOB:1959 (64 yo F)Acc No.[id number]:07/13/2024 Patient: Shannan MAREKCarlosDEBBY Provider: Helene Leach DPM :1960 A ge:64 Y S ex:Female Date:07/13/2024 Address:[address] [place], [place] [address] * Billing Information: * Visit Code: * Procedure Codes: * Electronic signature of JOSIAH LEACH DPM on 09/05/2024 at 09:07 AM CDT Sign off status: Pending * Provider: Helene Leach DPM Date: 07/13/2024 Generated for Printi ng/Faxing/eTransmitting on: 0 09/05/2024 09:07 AM CDT
--- OUTSIDE RECORDS SUMMARY | 2024-09-05 09:08 | XMS_ITS | Encounter Summary ---
Author Organization [facility] Address [address] [place] [address] Care Team Providers Care Pediatric Nurse Practitioner Name Role Phone James Agudelo MD Primary Care Provider [phone] Encounter Details Date Type Department Care Team (Late Contact Info) Description 01/18/2019 Chart Note [facility] Radiation Therapy [address] [place] [address] [place] [address] [place] [address] Social History Tobacco Use Types [...] Description 09/18/2024 2:15 PM CDT Office Visit [facility] Oncology and Hematology - [place] [address] [facility] [address] [place] [address] Bhargav Garza MD [address] [facility] [address] [place] [address] documented as of this encounter Visit Diagnoses Not on filedocumented in this encounter Care Teams Pediatric Nurse Practitioner Relationship Specialty Start Date End Date James Agudelo MD [address] [facility] [address] [place] [address] PCP - General Family Practice 10/26/17 documented as of this encounter
--- OUTSIDE RECORDS SUMMARY | 2024-09-05 09:08 | XMS_ITS | Patient Health Record ---
Author Organization [facility] Address [address] [place], [place] [address] Care Team Providers Care Tow Truck Driver Name Role Phone JOSIAH LEACH Unavailable [phone] James Agudelo Unavailable Unavailable Allergies Allergen (clinical [...] Oral for 1 Days Active Droplet Pen [place] 31G X 8 MM for 90 Days [...] 07/19/2024 Encounters Encounter Location Date Provider Diagnosis [facility] [place] [id number] 07/13/2024 JOSIAH SNOOK [facility] [address] [place], [place] [id number] 05/21/2024 JOSIAH SNOOK Pain due to internal orthopedic prosthetic devices, implants and grafts, initial encounter T84.84XA and Left foot pain M79.672 [facility] [address] [place], [place] [address] 07/19/2024 JOSIAH SNOOK Pain due to internal orthopedic prosthetic devices, implants and grafts, subsequent encounter T84.84XD ; Left foot pain M79.672 and Encounter for other specified surgical aftercare Z48.89 [facility] [address] [place], [place] [address] 08/02/2024 JOSIAH SNOOK Pain due to internal orthopedic prosthetic devices, implants and grafts, subsequent encounter T84.84XD and Encounter for other specified surgical aftercare Z48.89 [facility] [address] [place], [place] [id number] 06/05/2024 JOSIAH SNOOK [facility] [address] [place], [place] [address] 07/12/2024 JOSIAH SNOOK Assessments Encounter Date Diagnosis [...] Insured Coverage Start Date Coverage End Date [id number] [place] [address] [id number] DEBBY MEJIAS Self - patient is the insured Medicare Part B [facility] [address] [place] [address] [id number] DEBBY MEJIAS Self - patient is the insured Medical (General) History Medical History History ICD Code Cancer (type of cancer) Leg/Feet cramps Sleep apnea Diabetic
== END 2024-09-05 08:40 | disposition home or self-care (01) ==
LOC: ANHLAB 08:41
PROVIDERS: PCP Family Medicine; Visit Provider Internal Medicine Hematology & Oncology
DX: C50.211 Malignant neoplasm of upper-inner quadrant of right female breast (principal); Z17.0 Estrogen receptor positive status [ER+]
CPT/HCPCS: 36415; 85025

== ENCOUNTER 2024-09-28 14:01 | Outpatient (CLI) | payer MEDICARE, SELFPAY ==
--- OUTSIDE RECORDS SUMMARY | 2024-09-28 14:04 | XMS_ITS | Encounter Summary ---
Author Organization [facility] Address [address] [place] [address] Care Team Providers Care Product Marketing Manager Name Role Phone James Agudelo MD Primary Care Provider Encounter Details Date Type Department Care Team (Late Contact Info) Description 01/18/2019 Chart Note [facility] Radiation Therapy [address] [place] [address] [place] [address] [place] [address] Social History Tobacco Use Types [...] Care Team (Late st Contact Info) Description 03/20/2025 1:00 PM CDT Office Visit [facility] Oncology and Hematology - [place] [address] [facility] [address] [place] [address] Bhargav Garza MD [address] [facility] [address] [place] [address] documented as of this encounter Visit Diagnoses Not on filedocumented in this encounter Care Teams Product Marketing Manager Relationship Specialty Start Date End Date James Agudelo MD [address] [phone] PCP - General Family Practice 10/26/17 documented as of this encounter
--- OUTSIDE RECORDS SUMMARY | 2024-09-28 14:04 | XMS_ITS | Clinical Summary ---
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 90 Tablet 1 024 2024 Disconti nued(Reo rder) Active Problems Patient Care Coordination No te Formatting of this note migh t be different from the original. Primary Care: James Agudelo MD Referring Provider: James Agudelo MD [address] [facility] [address] [place] [address] Other: Problem Noted Date Diagnosed Date History [...] Encounters Date Type Department Care Team Description 09/18/2024 2:15 PM CDT Office Visit [facility] Oncology and Hematology [facility] [address] [place] [address] Bhargav Garza MD Malignant neoplasm of upper-inner quadrant of right breast in female, estrogen receptor positive (CMS/HCC) (Primary Dx) 09/11/2024 Orders Only [facility] Oncology and Hematology - [place] [address] [place] [address] Bhargav Garza MD 09/10/2024 Orders Only [facility] Oncology and Hematology - [place] [address] [place] [address] Bhargav Garza MD 09/06/2024 Orders Only [facility] Oncology and Hematology - [place] [address] [place] [address] Bhargav Garza MD 08/27/2024 Orders Only [facility] Oncology and Hematology - [place] [address] [place] [address] Bhargav Garza MD Malignant neoplasm of upper-inner [...] External Device Data STL ABSTRACTION Provider, Abstract from Last 3 Months Family History Medical [...] Sign Reading Time Taken Comments Blood Pressure 138/78 09/18/2024 2:08 PM CDT Pulse 86 09/18/2024 2:06 PM CDT Temperature 36.1 C (96.9 F) 09/18/2024 2:06 PM CDT Respiratory Rate 16 09/18/2024 2:06 PM CDT Oxygen Saturation 98% 09/18/2024 2:06 PM CDT Inhaled Oxygen Concentration - - Weight 83.3 kg (183 lb 9.6 oz) 09/18/2024 2:06 P M CDT Height 170.2 cm (5' 7 ) 08/30/2023 1:02 PM CDT Body Mass Index 28.76 08/30/2023 1:02 PM CDT Plan of Treatment Upcoming Encounters Date Type Department Care Team (Late st Contact Info) Description 03/20/2025 1:00 PM CDT Office Visit [facility] Oncology and Hematology - [place] [address] [facility] [address] [place] [address] Bhargav Garza MD [address] [facility] [address] [place] [address] Health Maintenance Due Date Last [...] Procedure Name Priority Date/Time Associated Diagnosis Comments CBC WITH DIFFERENTIAL Routine 09/05/2024 11:50 AM CDT CHG CA 15 3 Routine 09/05/2024 10:56 AM CDT COMPREHENSIVE METABOLIC PANEL Routine 09/04/2024 3:06 PM CDT MAMMO 3D LUCIE DIAGNOSTIC BILAT W OR WO CAD Routine 08/30/2023 12:45 PM CDT Malignant neoplasm of upper-inner quadrant of right breast in female, estrogen receptor positive (CMS/HCC) Fibrocystic breast changes of both breasts HEMOGLOBIN A1C Routine 04/28/2021 from Last 3 Months or Most Recently Relevant to Health Maintenance Results * CBC WITH DIFFERENTIAL (09/05/2024 11:50 AM CDT) Blood us Bhargav Garza MD HEMATOLOGY ORDERABLES Final Res ult * CHG CA 15 3 (09/05/2024 10:56 AM CDT) us Bhargav Garza MD CHG - LABORATORY Final Result * COMPREHENSIVE METABOLIC PANEL (09/04/2024 3:06 PM CDT) Blood us Bhargav Garza MD CHEMISTRY ORDERABLES Final Resu lt * MAMMO DIAG BILAT 3D LUCIE W [...] R esult * HEMOGLOBIN A1C (04/28/2021) Blood Abstract Provider CHEMISTRY ORDERABLES Final Res ult from Last 3 Months or Most Recently Relevant to Health Maintenance Insurance [employer] CHOICE PPO MCR [employer] CHOICE PPO MCR Care Teams Electrical Transmission Engineer Relationship Specialty Start Date End Date James Agudelo MD [address] [facility] [address] [place] [address] PCP - General Family Practice 10/26/17
--- OUTSIDE RECORDS SUMMARY | 2024-09-28 14:04 | XMS_ITS | Clinical Summary ---
Author Organization [facility] Address [address] [place] [address] Care Team Providers Care Pulp Mill Team Leader Name Role Phone James Agudelo MD Primary Care Provider [phone] Allergies Active Allergy Reactions Criticality Noted Date [...] Department Care Team Description 07/13/2024 11:07 AM BUSINESS ATTORNEY Anesthesia Event [place] [place] [address] Vitaly Pinzon MD Jarvis, Brittany L, FISHER SPONGE HOOKING 07/13/2024 10:28 AM BUSINESS ATTORNEY - 07/13/2024 11:56 AM BUSINESS ATTORNEY Surgery [facility] [place] [address] Josiah Martinez, DPM REMOVAL OF PAINFUL HARDWARE LEFT FOOT 07/13/2024 8:31 AM BUSINESS ATTORNEY - 07/13/2024 1:29 PM BUSINESS ATTORNEY Hospital Encounter [facility] [place] [address] Josiah Martinez, DPShannan Discharge Disposition: Home or [...] Sex Assigned at Female 07/13/2024 8:30 AM BUSINESS ATTORNEY Legal Sex Female 7:25 PM CDT Gender Identity Not on file Sexual Orientation Not on file Last Filed Vital Signs Vital Sign Reading Time Taken Comments Blood Pressure 159/51 07/13/2024 1:20 PM BUSINESS ATTORNEY Pulse 61 07/13/2024 1:20 PM BUSINESS ATTORNEY Temperature 36.5 C (97.7 F) 07/13/2024 1:20 PM BUSINESS ATTORNEY Respiratory Rate 18 07/13/2024 1:20 PM BUSINESS ATTORNEY Oxygen Saturation 100% 07/13/2024 1:20 PM BUSINESS ATTORNEY Inhaled Oxygen Concentration - - Weight 82.8 kg (182 lb 8.7 oz) 07/13/2024 9:00 A M BUSINESS ATTORNEY Height 167.6 cm (5' 6 ) 07/13/2024 9:00 AM BUSINESS ATTORNEY Body Mass Index 29.46 07/13/2024 9:00 AM BUSINESS ATTORNEY Plan of Treatment Health Maintenance Due Date [...] RSV Immunization or 60+ Years Completed 05/30/2023 Meningococcal B Vaccine Aged Out No l onger eligible based on patient's age to complete this topic Meningococcal Vaccine Aged Out No aielen hector eligible based on patient's age to complete this topic RSV Immunizations Under 20 Months Aged Out No longer eligible based on patient's age to complete this topic Medical Devices Explanted Type Area Junior Bookkeeper Device Identifier Shelf Expiration Date Model / Serial / Lot K-Wire Explanted:Qty: 1 on 07/13/2024 by Josiah Martinez DPM at [facility] Wire Left: Foot Description:Removed intact. Procedures Procedure Name Priority Date/Time Associated Diagnosis Comments SURG XR FOOT LT 2V Routine 07/13/2024 12:11 PM BUSINESS ATTORNEY POCT GLUCOSE - ALBARRAN DOCKED DEVICE Routine 07/13/2024 12:01 PM BUSINESS ATTORNEY REMOVAL PLATE SCREW OR PIN 07/13/2024 10:52 AM BUSINESS ATTORNEY PAINFUL HARDWARE Case Notes SCHED BY FAX 05/28/[address] MONTE CARD POCT GLUCOSE - ALBARRAN DOCKED DEVICE Routine 07/13/2024 9:12 AM BUSINESS ATTORNEY from Last 3 Months Results * SURG XR FOOT LT 2V (07/13/2024 12:11 PM BUSINESS ATTORNEY) Anatomical Region Laterality Modality Foot Radiographic Lisseth ging 07/13/2024 12:3 0 PM BUSINESS ATTORNEY Impressions 07/13/2024 12:30 PM BUSINESS ATTORNEY Impression: No radiologic interpretation will be issued. The report and documentation of this exam will reside in the patient's permanent medical record and in the attending physician's procedure note. Ordered By: JOSIAH MARTINEZ Interpreted By: Enoch Beavers MD, 07/13/2024 12:30 PM Narrative 07/13/2024 12:30 PM BUSINESS ATTORNEY [facility] [address] [place] [address] FLUOROSCOPY CONTROL ONLY Procedure Note Enoch Beavers MD - 07/13/2024 [facility] [address] [place] [address] FLUOROSCOPY CONTROL ONLY Impression: No radiologic interpretation will be issued. The report and documentationof this exam will reside in the patient's permanent medical record and inthe attending physician's procedure note. Ordered By: JOSIAH MARTINEZ Interpreted By: Enoch Beavers MD, 07/13/2024 12:30 PM Josiah Martinez DPM IMAGES ONLY Final Result * (ABNORMAL) POCT glucose (07/13/2024 12:01 PM BUSINESS ATTORNEY) Only the most recent of2 resultswithin the time period is included. GLUCOSE POC 112(H) 70 - 99 mg/dL 07/13/2024 12:02 PM BUSINESS ATTORNEY [facility] 07/13/2024 12:0 1 PM BUSINESS ATTORNEY Josiah Martinez DPM POCT ORDERABLES - DEVICE Final R esult [facility] [address] [place] [address], [place] [phone] from Last 3 Months Insurance HU[employer] Care Teams Pulp Mill Team Leader Relationship Specialty Start Date End Date James Agudelo MD [address] [place] [address] PCP - General FAMILY PRACTICE 07/04/24
--- OUTSIDE RECORDS SUMMARY | 2024-09-28 14:04 | XMS_ITS | Clinical Summary ---
Author Organization [facility] Address [address] [place] [address] Care Team Providers Care Software Engineering Analyst Name Role Phone James Agudelo MD Primary Care Provider Source Comments [facility],non-owned Affiliates and Associated Physician Practices is amultiple site organization consisting of ambulatory clinics and hospital sitesin [place], [place], [place] and [place]. This disclosure is being madepursuant to the Care Everywhere program and may not contain all information available regarding this patient. Last updated 18.[facility] Medications * Be aware that medications may [...] VACCINE ( - 2023-2 5 season) 2024 DEPRESSION SCREENING 06/20/2024 INFLUENZA VACCINE (Season Ended) 2025 Respiratory Syncytial Virus (RSV) Vaccine Pt: or [...] age to complete this topic Care Teams Software Engineering Analyst Relationship Specialty Start Date End Date James Agudelo MD [address] [place] [address] PCP - General 03/12/15
--- OUTSIDE RECORDS SUMMARY | 2024-09-28 14:04 | XMS_ITS ---
Author Organization [facility] Address [address] [place], [place] [address] Care Team Providers Care Park Warden Name Role Phone JOSIAH LEACH Unavailable [phone] James Agudelo Unavailable Unavailable Allergies Allergen (clinical [...] Oral for 1 Days Active Droplet Pen [place] 31G X 8 MM for 90 Days [...] Location Date Provider Diagnosis [facility] [address] [facility] [address] [place], [place] [id number] 08/02/2024 JOSIAH SNOOK Pain due to internal [...] * DEBBY MEJIAS MDOB:1959 (64 yo F)Acc No.[id number]:08/02/2024 Patient: DEBBY NG Provider: Helene Leach DPM :1960 A ge:64 Y S ex:Female Date:08/02/2024 Address:[address] [place] [address] Subjective: * Chief Complaints: * Hanna franck [...] 100 UNIT/ML Solution Pen-injector Subcutaneous Droplet Pen [place] 31G X 8 MM Miscellaneous Anastrozole 1 [...] Solution Pen- injector Subcutaneous Taking Droplet Pen [place] 31G X 8 MM Miscellaneous Taking Anastrozole [...] Information: * Visit Code: * Procedure Codes: 31905 POSTOP FOLLOW-UP VISIT. * ACE ERECTOR Sign off status: Completed true * Provider: Helene Leach DPM Date: 0 08/02/2024 Generated for Viktoriya perdomo/Kelly/Luz Maria on: 0 09/28/2024 02:04 PM CDT History and Physical Notes * [...]
--- OUTSIDE RECORDS SUMMARY | 2024-09-28 14:05 | XMS_ITS ---
Author Organization [facility] Address [address] [place], [place] [address] Care Team Providers Care Sod Stripper Name Role Phone JOSIAH LEACH Unavailable [phone] James Agudelo Unavailable Unavailable Allergies Allergen (clinical [...] needed for pain. 07/12/2024 Active Droplet Pen [place] 31G X 8 MM for 90 Days [...] Oral for 90 Days Active Vital Signs Weight 198 lbs 07/19/2024 Weight-kg 89.81 kg 07/19/2024 Height 67.00 in 07/19/2024 Height-cm 170.18 cm 07/19/2024 BMI 31.01 kg/m2 07/19/2024 Encounters Encounter Location Date Provider Diagnosis [facility] [address] [place], [place] [id number] 07/19/2024 JOSIAH SNOOK Pain due to internal [...] * DEBBY MEJIAS MDOB:1959 (64 yo F)Acc No.[id number]:07/19/2024 Patient: DEBBY NG Provider: Helene Leach DPM :1960 A ge:64 Y S ex:Female Date:07/19/2024 Address:[address] [place], [place] [id number] Subjective: * Chief Complaints: * P atient [...] 100 UNIT/ML Solution Pen-injector Subcutaneous Droplet Pen [place] 31G X 8 MM Miscellaneous Anastrozole 1 [...] Solution Pen- injector Subcutaneous Taking Droplet Pen [place] 31G X 8 MM Miscellaneous Taking Anastrozole [...] * Procedure Codes: 9 9024 POSTOP FOLLOW-UP [id number] X-RAY EXAM OF FOOT, Modifiers: LT * Follow Up: 2 Weeks (Reason: Suture removal) * Billing Information: * Visit Code: * Procedure Codes: 91181 POSTOP FOLLOW-UP VISIT. 96443 X-RAY EXAM OF FOOT. Modifiers: LT * ION EXAMINER Sign off status: Completed true * Provider: [...]
--- OUTSIDE RECORDS SUMMARY | 2024-09-28 14:05 | XMS_ITS ---
Author Organization [facility] Address [address] [place], [place] [address] Care Team Providers Care Pipe Crew Foreman Name Role Phone JOSIAH LEACH Unavailable [phone] James Agudelo Unavailable Unavailable REASON FOR VISIT [facility] SURGERY Encounters Encounter Location Date Provider Diagnosis [address] [id number] 07/13/2024 JOSIAH LEACH Plan Of Treatment No Information Progress Notes * DEBBY MEJIAS MDOB:1959 (64 yo F)Acc No.[id number]:07/13/2024 Patient: Shannan MAREKCarlosDEBBY Provider: Helene Leach DPM :1960 A ge:64 Y S ex:Female Date:07/13/2024 Address:[address] [place], [place] [phone] * Billing Information: * Visit Code: * Procedure Codes: * Electronic signature of JOSIAH LEACH DPM on 09/28/2024 at 02:04 PM CDT Sign off status: Pending * Provider: Helene Leach DPM Date: 07/13/2024 Generated for Printi ng/Faxing/eTransmitting on: 0 09/28/2024 02:04 PM CDT
--- OUTSIDE RECORDS SUMMARY | 2024-09-28 14:05 | XMS_ITS | Patient Health Record ---
Author Organization [facility] Address [address] [place], [place] [address] Care Team Providers Care Kiln Operator Helper Name Role Phone JOSIAH LEACH Unavailable [phone] James Agudelo Unavailable Unavailable Allergies Allergen (clinical [...] Oral for 1 Days Active Droplet Pen [place] 31G X 8 MM for 90 Days [...] Location Date Provider Diagnosis [facility] [place] [address] [place], [place] [id number] 05/21/2024 JOSIAH SNOOK Pain due to internal orthopedic prosthetic devices, implants and grafts, initial encounter T84.84XA and Left foot pain M79.672 [facility] [address] [place], [place] [id number] 07/13/2024 JOSIAH SNOOK [facility] [address] [place], [place] [id number] 07/19/2024 JOSIAH SNOOK Pain due to internal orthopedic prosthetic devices, implants and grafts, subsequent encounter T84.84XD ; Left foot pain M79.672 and Encounter for other specified surgical aftercare Z48.89 [facility] [address] [place], [place] [id number] 08/02/2024 JOSIAH SNOOK Pain due to internal orthopedic prosthetic devices, implants and grafts, subsequent encounter T84.84XD and Encounter for other specified surgical aftercare Z48.89 [facility] [address] [place], [place] [id number] 06/05/2024 JOSIAH SNOOK [facility] [address] [place], [place] [id number] 07/12/2024 JOSIAH SNOOK Assessments Encounter Date Diagnosis [...] Insured Coverage Start Date Coverage End Date [address] [place] [address] [phone] [id number] DEBBY MEJIAS Self - patient is the insured Medicare Part B [facility] [address] [place] [address] [id number] DEBBY MEJIAS Self - patient is the insured Medical (General) History Medical History History ICD Code Cancer (type of cancer) Leg/Feet cramps Sleep apnea Diabetic
[2024-10-02 10:39] LABS: Ionized Calcium 5.1 mg/dL (4.7-5.5)
== END 2024-09-28 14:02 | disposition home or self-care (01) ==
PROVIDERS: PCP Family Medicine; Visit Provider Internal Medicine
DX: E11.65 Type 2 diabetes mellitus with hyperglycemia (principal); M85.80 Other specified disorders of bone density and structure, unspecified site
CPT/HCPCS: 36415; 82330

== ENCOUNTER 2025-01-18 15:06 | Outpatient (CLI) | payer MEDICARE, SELFPAY ==
--- NOTE | ~2025-01-18 | MM_ITS ---
EXAMINATION: MM screening george BI w rosanne HISTORY: Screening TECHNIQUE: Craniocaudal and mediolateral oblique 3-D tomosynthesis images were obtained and synthetic 2-D images were generated. CAD analysis was submitted and interpreted. COMPARISON: Comparison to multiple prior studies sequentially, with oldest reviewed study dated 01/15. BREAST PARENCHYMAL COMPOSITION: Not dense: There are scattered areas of fibroglandular density. FINDINGS: There is no evidence of suspicious mass, calcification, or architectural distortion to sugg est malignancy in either breast. There has been no suspicious interval change. IMPRESSION: 1. No mammographic evidence of malignancy. 2. Recommend routine screening mammography in one year. BI-RADS Category 1: Negative Reviewed, dictated and finalized at location B.
--- OUTSIDE RECORDS SUMMARY | 2025-01-18 15:08 | XMS_ITS | Clinical Summary ---
Author Organization [facility] Address [address] [place] [address] Care Team Providers Care Grinding Machine Operator Name Role Phone James Agudelo MD Primary Care Provider [phone] Allergies Active Allergy Reactions Criticality Noted Date [...] (50 mcg total) by mouth nightly. Active Family History Medical History Relation Comments Diabetes [...] Sex Assigned at Female 07/13/2024 8:30 AM MIME ARTIST Legal Sex Female 7:25 PM CDT Gender Identity Not on file Sexual Orientation Not on file Last Filed Vital Signs Vital Sign Reading Time Taken Comments Blood Pressure 159/51 07/13/2024 1:20 PM MIME ARTIST Pulse 61 07/13/2024 1:20 PM MIME ARTIST Temperature 36.5 C (97.7 F) 07/13/2024 1:20 PM MIME ARTIST Respiratory Rate 18 07/13/2024 1:20 PM MIME ARTIST Oxygen Saturation 100% 07/13/2024 1:20 PM MIME ARTIST Inhaled Oxygen Concentration - - Weight 82.8 kg (182 lb 8.7 oz) 07/13/2024 9:00 A M MIME ARTIST Height 167.6 cm (5' 6) 07/13/2024 9:00 AM MIME ARTIST Body Mass Index 29.46 07/13/2024 9:00 AM MIME ARTIST Plan of Treatment Health Maintenance Due Date Last Done Comments Colorectal Cancer Screening Colonoscopy (10 Years) 1960 Hepatitis C 01/18/1976 DTaP, Tdap and Td Vaccines (1 - Tdap) 1977 Pneumococcal Vaccine: 50+ Years (1 of 1 - PCV) 01/18/2008 Zoster Vaccines (1 of 2) 01/18/2008 Annual Medicare Wellness Visit 2023 Dexa Scan (General) 2023 COVID-19 Vaccine ( season) 2024 07/01/2021, 09/11/2020, 08/21/2020 Mammogram Screening [...] this topic Medical Devices Explanted Type Area Mechanic Field Service Device Identifier Shelf Expiration Date Model / Serial / Lot K-Wire Explanted:Qty: 1 on 07/13/2024 by Luis Alfredo Martinez DPM at [facility] [employer] Wire Left: Foot Description:Removed intact. Insurance [employer] Care Teams Grinding Machine Operator Relationship Specialty Start Date End Date James Agudelo MD [address] [place] [address] PCP - General FAMILY PRACTICE 07/04/24
--- OUTSIDE RECORDS SUMMARY | 2025-01-18 15:08 | XMS_ITS ---
Author Organization [facility] Address [address] [place], [place] [address] Care Team Providers Care Addiction Therapist Name Role Phone JOSIAH LEACH Unavailable [phone] James Agudelo Unavailable Unavailable REASON FOR VISIT [facility] SURGERY Encounters Encounter Location Date Provider Diagnosis [address] [id number] 07/13/2024 JOSIAH LEACH Plan Of Treatment No Information Progress Notes * DEBBY MEJIAS MDOB:1959 (65 yo F)Acc No.[id number]:07/13/2024 Patient: Shannan MAREKCarlosDEBBY Provider: Helene Leach DPM :1960 A ge:64 Y S ex:Female Date:07/13/2024 Address:[address] [place], [place] [phone] * Billing Information: * Visit Code: * Procedure Codes: * Electronic signature of JOSIAH LEACH DPM on 01/18/2025 at 03:08 PM CDT Sign off status: Pending * Provider: Helene Leach DPM Date: 07/13/2024 Generated for Printi ng/Faxing/eTransmitting on: 0 01/18/2025 03:08 PM CDT
--- OUTSIDE RECORDS SUMMARY | 2025-01-18 15:08 | XMS_ITS | Clinical Summary ---
Author Organization [facility] Address [address] [place] [address] Care Team Providers Care Pad Hand Name Role Phone James Agudelo MD Primary Care Provider [phone] Allergies No known active allergies Medications liraglutide [...] mg) by mouth daily. 90 Tablet 2 09/19/19 25 Active Active Problems Patient Care Coordination No te Formatting of this note migh t be different from the original. Primary Care: James Agudelo MD Referring Provider: James Agudelo MD [address] [place] [address] Other: Problem Noted Date Diagnosed Date History [...] Encounters Date Type Department Care Team Description 01/02/2025 External Device Data STL ABSTRACTION Provider, Abstract 12/05/2024 External Device Data STL ABSTRACTION Provider, Abstract 11/07/2024 External Device Data STL ABSTRACTION Provider, Abstract 11/06/2024 External Device Data STL ABSTRACTION Provider, Abstract 10/31/2024 Refill [facility] Oncology and Hematology - [place] [address] [place] [address] Anitha Pierson MD Malignant neoplasm of upper-inner [...] P M CDT Height 170.2 cm (5' 7) 08/30/2023 1:02 PM CDT Body Mass Index 28.76 08/30/2023 1:02 PM CDT Plan of Treatment Upcoming Encounters Date Type Department Care Team (Late st Contact Info) Description 03/20/2025 1:00 PM CDT Office Visit [facility] Oncology and Hematology - [place] [address] [facility] [address] [place] [address] Bhargav Garza MD [address] [facility] [address] [place] [address] Health Maintenance Due Date Last Done Comments DTAP/TDAP/TD VACCINES (1 - Tdap) 1977 COLORECTAL SCREENING 2003 Colorectal Cancer Screening 2003 FIT-DNA Q 3 years 2003 FIT/FOBT Q 1 year 2003 Flex Sig/CT Colonography Q 5 years 2003 PNEUMOCOCCAL VACCINE 50+ YEA RS (1 of 1 - PCV) 01/18/2008 ZOSTER VACCINE (1 of 2) 01/18/2008 OSTEOPOROSIS SCREENING 2023 Pre-Diabetes and Diabetes Screening 04/28/2024 04/28/2021, 02/21/2020 BREAST CANCER SCREENING 08/29/2024 08/30/19 24, 08/24/2022, 08/20/2021, Additional history exists INFLUENZA VACCINE (#1) 2025 04/13/2019 RSV VACCINE (60+ or ) (1 - [...] 2: Benign findings. DICTATION LOCATION: [facility] 08/30/2023 3:11 PM CDT EXAM: BILATERAL DIGITAL DIAGNOSTIC MAMMOGRAPHY WITH TOMOSYNTHESIS AND CAD EXAM DATE: 08/30/2023 INDICATION: Right breast conservation therapy. Fibrocystic breast changes. Bilateral core biopsies. TECHNIQUE: Low Dose full field Digital Breast tomosynthesis examination was performed with 2D and 3D acquisitions. Examination is read in conjunction with computer aided detection. COMPARISON: 2022 and older. BREAST COMPOSITION: The breasts are heterogeneously dense, [...] in conjunction with computer aided detection. COMPARISON: 2022 and older. BREAST COMPOSITION: The breasts are heterogeneously dense, which may obscure small masses. FINDINGS: Redemonstration of the right breast conservation therapy changes. There is no suspicious mass or calcification within either breast. Bilateral biopsy clips are redemonstrated. IMPRESSION: No evidence of malignancy. No significant interval change. RECOMMENDATION: Bilateral annual routine mammography. OVERALL FINAL ASSESSMENT: BI-RADS CATEGORY 2: Benign findings. DICTATION LOCATION: [facility] Marixa Rosario MD MAMMO ORDERABLES Final R esult * HEMOGLOBIN A1C (04/28/2021) Blood us Abstract Provider CHEMISTRY ORDERABLES Final Res ult from Last 3 Months or Most Recently Relevant to Health Maintenance Insurance [facility] Care Teams Pad Hand Relationship Specialty Start Date End Date James Agudelo MD [address] [facility] [address] [place] [address] PCP - General Family Practice 10/26/17
--- OUTSIDE RECORDS SUMMARY | 2025-01-18 15:08 | XMS_ITS | Encounter Summary ---
Author Organization [facility] Address [address] [place] [address] Care Team Providers Care Weaver Dobby Loom Name Role Phone James Agudelo MD Primary Care Provider [phone] Encounter Details Date Type Department Care Team (Late Contact Info) Description 01/18/2019 Chart Note [facility] Radiation Therapy [address] [place] [address] [place] [address] [place] [address] Social History Tobacco Use Types [...] Description 03/20/2025 1:00 PM CDT Office Visit [facility] Oncology and Hematology - [place] [address] [facility] [address] [place] [address] Bhargav Garza MD [address] [facility] [address] [place] [address] documented as of this encounter Visit Diagnoses Not on filedocumented in this encounter Care Teams Weaver Dobby Loom Relationship Specialty Start Date End Date James Agudelo MD [address] [phone] PCP - General Family Practice 10/26/17 documented as of this encounter
--- OUTSIDE RECORDS SUMMARY | 2025-01-18 15:08 | XMS_ITS | Clinical Summary ---
Author Organization [facility] Address [address] [address] Care Team Providers Care Tire Tester Name Role Phone James Agudelo MD Primary Care Provider [phone] Source Comments [facility],non-owned Affiliates and Associated Physician Practices is amultiple site organization consisting of ambulatory clinics and hospital sitesin [place], [place], [place] and [place]. This disclosure is being madepursuant to the Care Everywhere program and may not contain all information available regarding this patient. Last updated 18.[facility] Medications * Be aware that medications may not be up to date on this document. Alwaysverify current medications with the patient. fenofibrate (TRICOR) 48 MG tablet 5 09/06/2016 Active insulin detemir (LEVEMIR FLEXTOUCH) pen 5 08/29/2016 Acti ve losartan (COZAAR) 25 MG tablet 2 09/06/2016 [...] = 0.6 oz pur e alcohol) Comments Unknown Sex and Gender Information Value Date Recorded Sex Assigned at Not on file Legal Sex Female 5:25 PM DIRECTOR FEDERAL Gender Identity Not on file Sexual Orientation [...] VACCINE (1 of 2) 01/18/2008 COVID-19 VACCINE (1 - 2023-2 5 season) 2024 DEPRESSION SCREENING 06/20/2024 INFLUENZA VACCINE (#1) 2025 Respiratory Syncytial Virus (RSV) Vaccine Pt: [...] patient's age to complete this topic Insurance [facility] Member Subscriber Plan / Payer (Ef fective 2018-Present) Name:Debby Mejias Relation to Subscriber:Self Name:MEJIASDEBBY Payer ID:[id number] (NAIC) Type:HMO Address: [place] [id number] [place] [phone] Care Teams Tire Tester Relationship Specialty Start Date End Date James Agudelo MD [address] [place] [address] PCP - General 03/12/15
--- OUTSIDE RECORDS SUMMARY | 2025-01-18 15:09 | XMS_ITS | Patient Health Record ---
Author Organization [facility] Address [address] [place], [place] [id number] Care Team Providers Care Traveling Phlebotomist Name Role Phone JOSIAH LEACH Unavailable [phone] James Agudelo Unavailable Unavailable Allergies Allergen (clinical drug ingredient) Drug/Non Drug Allergy documented on EMR Reaction Allergy Type Onset Date Status codeine Codeine Unknown Drug Allergy Active Gold and/or gold compound (FN) Gold-containing Drug Products Unknown Drug Allergy Active Reason For Referral No Information Medications Medication SIG (Take, Route, Frequency, Duration) Notes Start Date End Date Status dilTIAZem HCl 60 MG Oral; Duration: 90 Days Active Fenofibrate 54 MG Oral; Duration: 90 Days Active HYDROcodone-Acetaminophen 5-325 MG 1 tablet as needed Orally every 4-6 hrs As needed for pain. 07/12/2024 Active Atorvastatin Calcium 10 MG Oral; Duration: 90 Days Active LORazepam 0.5 MG 1 TABLET BY MOUTH 1 HR PRIOR TO TEST, MAY REPEAT AT TIME OF TEST IF NEEDED Oral; Duration: 1 Days Active Droplet Pen [place] 31G X 8 MM ; Duration: 90 Days Active Anastrozole 1 MG Oral; Duration: 90 Days Active NovoLOG FlexPen 100 UNIT/ML Subcutaneous ; Duration: 90 Days Active Levemir FlexPen 100 UNIT/ML Subcutaneous ; Duration: 90 Days Active Losartan Potassium 25 MG Oral; Duration: 90 Days Active metFORMIN HCl ER 500 MG Oral; Duration: 90 Days Active Vital Signs Height-cm 170.18 cm 07/19/2024 Weight-kg 89.81 kg 07/19/2024 Height 67.00 in 07/19/2024 Weight 198 lbs 07/19/2024 BMI 31.01 kg/m2 07/19/2024 Encounters Encounter Location Date Provider Diagnosis [facility] [address] [facility] [place] [id number] 07/13/2024 JOSIAH SNOOK [facility] [place] [address] [place], [place] [id number] 05/21/2024 JOSIAH SNOOK Pain due to internal orthopedic prosthetic devices, implants and grafts, initial encounter T84.84XA and Left foot pain M79.672 [facility] [address] [place], [place] [id number] 07/19/2024 JOSIAH SNOOK Pain due to internal orthopedic prosthetic devices, implants and grafts, subsequent encounter T84.84XD ; Left foot pain M79.672 and Encounter for other specified surgical aftercare Z48.89 [facility] [address] [place], [place] [id number] 08/02/2024 JOSIAH SNOOK Pain due to internal orthopedic prosthetic devices, implants and grafts, subsequent encounter T84.84XD and Encounter for other specified surgical aftercare Z48.89 [facility] [address] [facility] [address] [place], [place] [id number] 06/05/2024 JOSIAH SNOOK [facility] [address] [place], [place] [id number] 07/12/2024 JOSIAH SNOOK Assessments Encounter Date Diagnosis [...] Insured Coverage Start Date Coverage End Date [address] [address] [phone] [id number] DEBBY MEJIAS Self - patient is the insured Medicare Part B [facility] [address] [place] [phone] [id number] DEBBY MEJIAS Self - patient is the insured Medical (General) History Medical History History ICD Code Cancer (type of cancer) Leg/Feet cramps Sleep apnea Diabetic
== END 2025-01-18 15:07 | disposition home or self-care (01) ==
LOC: ANHIMG 15:07
PROVIDERS: PCP Family Medicine; Visit Provider Family Medicine
DX: Z12.31 Encounter for screening mammogram for malignant neoplasm of breast (principal)
CPT/HCPCS: 77063; 77067

== ENCOUNTER 2025-03-18 10:09 | Outpatient (CLI) | payer MEDICARE, SELFPAY ==
--- OUTSIDE RECORDS SUMMARY | 2024-07-13 05:00 | XMS_ITS ---
Author Organization [facility] Address [address] [place], [place] [address] Care Team Providers Care Event Specialist Name Role Phone JOSIAH LEACH Unavailable [phone] James Agudelo Unavailable Unavailable REASON FOR VISIT [facility] SURGERY Encounters Encounter Location Date Provider Diagnosis [address] [id number] 07/13/2024 JOSIAH LEACH Plan Of Treatment No Information Progress Notes * DEBBY MEJIAS MDOB:1959 (65 yo F)Acc No.[id number]:07/13/2024 Patient: Shannan MAREKCarlosDEBBY Provider: Helene Leach DPM :1960 A ge:64 Y S ex:Female Date:07/13/2024 Address:[address] [place], [place] [address] * Billing Information: * Visit Code: * Procedure Codes: * Electronic signature of JOSIAH LEACH DPM on 03/18/2025 at 10:48 AM CDT Sign off status: Pending * Provider: Helene Leach DPM Date: 07/13/2024 Generated for Printi ng/Faxing/eTransmitting on: 0 03/18/2025 10:48 AM CDT
--- OUTSIDE RECORDS SUMMARY | 2025-03-18 10:48 | XMS_ITS | Clinical Summary ---
Author Organization [facility] Address [address] [place] [address] Care Team Providers Care General House Worker Name Role Phone James Agudelo MD Primary Care Provider [phone] Source Comments [facility],non-owned Affiliates and Associated Physician Practices is amultiple site organization consisting of ambulatory clinics and hospital sitesin [place], [place], [place] and [place]. This disclosure is being madepursuant to the Care Everywhere program and may not contain all information available regarding this patient. Last updated 18.[facility] Medications * Be aware that medications may [...] on file Legal Sex Female 5:25 PM HEARING AID ASSISTANT Gender Identity Not on file Sexual Orientation [...] 01/18/2008 ZOSTER VACCINE (1 of 2) 01/18/2008 DEPRESSION SCREENING 06/20/2024 COVID-19 VACCINE (1 - 2023-2 5 season) 2025 INFLUENZA VACCINE (#1) 2025 Respiratory Syncytial Virus [...] patient's age to complete this topic Insurance [facility] Member Subscriber Plan / Payer (Ef fective 2018-Present) Name:Debby Mejias Relation to Subscriber:Self Name:MEJIASDEBBY Payer ID:[id number] (NAIC) Type:HMO Address: [place] [id number] [place] [id number] Care Teams General House Worker Relationship Specialty Start Date End Date James Agudelo MD [address] [place] [address] PCP - General 03/12/15
--- OUTSIDE RECORDS SUMMARY | 2025-03-18 10:48 | XMS_ITS | Clinical Summary ---
Author Organization [facility] Address [address] [place] [address] Care Team Providers Care Airplane Pilot Commercial Name Role Phone James Agudelo MD Primary Care Provider [phone] Allergies Active Allergy Reactions Criticality Noted Date [...] Sex Assigned at Female 07/13/2024 8:30 AM VASCULAR ULTRASOUND TECHNOLOGIST Legal Sex Female 7:25 PM CDT Gender Identity Not on file Sexual Orientation Not on file Last Filed Vital Signs Vital Sign Reading Time Taken Comments Blood Pressure 159/51 07/13/2024 1:20 PM VASCULAR ULTRASOUND TECHNOLOGIST Pulse 61 07/13/2024 1:20 PM VASCULAR ULTRASOUND TECHNOLOGIST Temperature 36.5 C (97.7 F) 07/13/2024 1:20 PM VASCULAR ULTRASOUND TECHNOLOGIST Respiratory Rate 18 07/13/2024 1:20 PM VASCULAR ULTRASOUND TECHNOLOGIST Oxygen Saturation 100% 07/13/2024 1:20 PM VASCULAR ULTRASOUND TECHNOLOGIST Inhaled Oxygen Concentration - - Weight 82.8 kg (182 lb 8.7 oz) 07/13/2024 9:00 A M VASCULAR ULTRASOUND TECHNOLOGIST Height 167.6 cm (5' 6) 07/13/2024 9:00 AM VASCULAR ULTRASOUND TECHNOLOGIST Body Mass Index 29.46 07/13/2024 9:00 AM VASCULAR ULTRASOUND TECHNOLOGIST Plan of Treatment Health Maintenance Due Date Last Done Comments Colorectal Cancer Screening Colonoscopy (10 Years) 1960 Hepatitis C 01/18/1976 DTaP, Tdap and Td Vaccines (1 - Tdap) 1977 Pneumococcal Vaccine: 50+ Years (1 of 1 - PCV) 01/18/2008 Zoster Vaccines (1 of 2) 01/18/2008 Annual Medicare Wellness Visit 2023 Dexa Scan (General) 2023 COVID-19 Vaccine ( season) 2025 07/01/2021, 09/11/2020, 08/21/2020 Mammogram Screening 08/29/2025 08/30/2023, [...] this topic Medical Devices Explanted Type Area Director Talent Device Identifier Shelf Expiration Date Model / Serial / Lot K-Wire Explanted:Qty: 1 on 07/13/2024 by Luis Alfredo Martinez DPM at [facility] [employer] Wire Left: Foot Description:Removed intact. Insurance [employer] Care Teams Airplane Pilot Commercial Relationship Specialty Start Date End Date James Agudelo MD [address] [place] [address] PCP - General FAMILY PRACTICE 07/04/24
--- OUTSIDE RECORDS SUMMARY | 2025-03-18 10:48 | XMS_ITS | Encounter Summary ---
Author Organization [facility] Address [address] [place] [address] Care Team Providers Care Manager Bilingual Name Role Phone James Agudelo MD Primary Care Provider [phone] Encounter Details Date Type Department Care Team (Late Contact Info) Description 01/18/2019 Chart Note [facility] Radiation Therapy [address] [place] [address] [place] [address] [place] [address] Social History Tobacco Use Types [...] Care Team (Late st Contact Info) Description 04/25/2025 3:45 PM DEODORIZER OPERATOR Office Visit [facility] Oncology and Hematology - [place] [address] [facility] [address] [place] [address] Bhargav Garza MD [address] [facility] [address] [place] [address] documented as of this encounter Visit Diagnoses Not on filedocumented in this encounter Care Teams Manager Bilingual Relationship Specialty Start Date End Date James Agudelo MD [address] [place] [phone] PCP - General Family Practice 10/26/17 documented as of this encounter
--- OUTSIDE RECORDS SUMMARY | 2025-03-18 10:48 | XMS_ITS | Clinical Summary ---
Author Organization [facility] Address [address] [facility] [place] [address] Care Team Providers Care Specialist Physician Name Role Phone James Agudelo MD Primary Care Provider [phone] Allergies No known active allergies Medications liraglutide [...] right breast in female, estrogen receptor positive Take 1 Tablet (1 mg) by mouth daily. 90 Tablet 2 09/19/19 25 Active Active Problems Patient Care Coordination No te Formatting of this note migh t be different from the original. Primary Care: James Agudelo MD Referring Provider: James Agudelo MD [address] [address] Other: Problem Noted Date Diagnosed Date History of right breast cancer 08/30/2023 S/P partial mastectomy, right 08/30/2023 Aromatase inhibitor use 08/30/2023 Abnormality of left breast on screening mammogra m 08/16/2019 Epidermoid cyst of skin of right breast 07/02/19 History of external beam radiation therapy 03/21 [...] Encounters Date Type Department Care Team Description 03/05/2025 External Device Data STL ABSTRACTION Provider, Abstract 02/20/2025 External Device Data ST[facility] ABSTRACTION Provider, Abstract 01/29/2025 External Device Data ST[facility] ABSTRACTION Provider, Abstract 01/02/2025 External Device Data STL ABSTRACTION Provider, [...] st Contact Info) Description 04/25/2025 3:45 PM DIRECT CASTING OPERATOR Office Visit [facility] Oncology and Hematology - [place] [address] [facility] [address] [place] [address] Bhargav Garza MD [address] [facility] [address] [place] [address] Health Maintenance Due Date Last [...] BI-RADS CATEGORY 2: Benign findings. DICTATION LOCATION: [facility] 08/30/2023 3:11 PM CDT EXAM: BILATERAL DIGITAL [...] BI-RADS CATEGORY 2: Benign findings. DICTATION LOCATION: [facility] Marixa Rosario MD MAMMO ORDERABLES Final R esult * HEMOGLOBIN A1C (04/28/2021) Blood Abstract Provider CHEMISTRY ORDERABLES Final Res ult from Last 3 Months or Most Recently Relevant to Health Maintenance Insurance [facility] [employer] PPO MCR Care Teams Specialist Physician Relationship Specialty Start Date End Date James Agudelo MD [address] [facility] [address] [place] [phone] PCP - General Family Practice 10/26/17
--- OUTSIDE RECORDS SUMMARY | 2025-03-18 10:49 | XMS_ITS | Patient Health Record ---
Author Organization [facility] Address [address] [place], [place] [address] Care Team Providers Care Test Bore Helper Name Role Phone JOSIAH LEACH Unavailable [phone] James Agudelo Unavailable Unavailable Allergies Allergen (clinical [...] Oral; Duration: 1 Days Active Droplet Pen [place] 31G X 8 MM ; Duration: 90 [...] 07/19/2024 Encounters Encounter Location Date Provider Diagnosis [facility] [address] [facility] [place] [id number] 07/13/2024 JOSIAH SNOOK [facility] [place] [address] [place], [place] [id number] 05/21/2024 JOSIAH SNOOK Pain due to internal orthopedic prosthetic devices, implants and grafts, initial encounter T84.84XA and Left foot pain M79.672 [facility] [address] [place], [place] [id number] 07/19/2024 JOSIAH SNOOK Pain due to internal orthopedic prosthetic devices, implants and grafts, subsequent encounter T84.84XD ; Left foot pain M79.672 and Encounter for other specified surgical aftercare Z48.89 [facility] [address] [place], [place] [id number] 08/02/2024 JOSIAH SNOOK Pain due to internal orthopedic prosthetic devices, implants and grafts, subsequent encounter T84.84XD and Encounter for other specified surgical aftercare Z48.89 [facility] [address] [facility] [address] [place], [place] [id number] 06/05/2024 JOSIAH SNOOK [facility] [address] [place], [place] [id number] 07/12/2024 JOSIAH SNOOK Assessments Encounter Date Diagnosis [...] Insured Coverage Start Date Coverage End Date [address] [address] [id number] DEBBY MEJIAS Self - patient is the insured Medicare Part B [facility] [address] [place] [address] [id number] DEBBY MEJIAS Self - patient is the insured Medical (General) History Medical History History ICD Code Cancer (type of cancer) Leg/Feet cramps Sleep apnea Diabetic
[2025-03-18 11:06] LABS: Alanine Aminotransferase 24 U/L (6-35); Albumin Level 4.4 g/dL (3.5-5.1); Alkaline Phosphatase 61 U/L (38-126); Anion Gap 8 mmol/L (4-12); Aspartate Amino Transferase 26 U/L (14-36); Bilirubin,Total 0.6 mg/dL (0.2-1.3); Blood Urea Nitrogen 19 mg/dL (7-17); Calcium 9.2 mg/dL (8.4-10.2); Carbon Dioxide 23 mmol/L (22-30); Chloride 106 mmol/L (98-107); Cholesterol 130 mg/dL (0-200); Estimated Glomerular Filt Rate > 60; Glucose 145 mg/dL (65-110); HDL Direct 42 mg/dL; Potassium 4.0 mmol/L (3.4-5.0); Sodium 137 mmol/L (137-145); Total Protein 6.9 g/dL (6.3-8.2); Triglycerides 116 mg/dL (<150)
== END 2025-03-18 10:10 | disposition home or self-care (01) ==
LOC: ANHLAB 10:10
PROVIDERS: PCP Family Medicine; Visit Provider Family Medicine
DX: E78.5 Hyperlipidemia, unspecified (principal); I10 Essential (primary) hypertension
CPT/HCPCS: 36415; 80053; 80061

== ENCOUNTER 2025-04-19 11:16 | Outpatient (CLI) | payer MEDICARE, SELFPAY ==
--- OUTSIDE RECORDS SUMMARY | 2024-07-13 05:00 | XMS_ITS ---
Author Organization [facility] Address [address] [place], [place] [address] Care Team Providers Care Buffing Machine Tender Name Role Phone JOSIAH LEACH Unavailable [phone] James Agudelo Unavailable Unavailable REASON FOR VISIT [facility] SURGERY Encounters Encounter Location Date Provider Diagnosis [address] [id number] 07/13/2024 JOSIAH LEACH Plan Of Treatment No Information Progress Notes * DEBBY MEJIAS MDOB:1959 (65 yo F)Acc No.[id number]:07/13/2024 Patient: Shannan MAREKCarlosDEBBY Provider: Helene Leach DPM :1960 A ge:64 Y S ex:Female Date:07/13/2024 Address:[address] [place], [place] [id number] Billing Information: * Procedure Codes: * Electronic signature of JOSIAH LEACH DPM on 04/19/2025 at 11:31 AM CDT Sign off status: Pending * Provider: Helene Leach DPM Date: 07/13/2024 Generated for Printi ng/Faxing/eTransmitting on: 1 11:31 AM CDT
[2025-04-19 11:30] LABS: Hematocrit 39.1 % (37.0-47.0); Hemoglobin 13.4 g/dL (12.0-15.0); Immature Granulocyte Percent A 0.2 % (0-0.5); Lymphocytes Absolute Auto 1.10 K/mm3 (0.9-3.2); Mean Corpuscular HGB Conc 34.3 g/dl (32-36); Mean Corpuscular Hemoglobin 30.3 pg (26-34); Mean Corpuscular Volume 88.5 fl (80-100); Nucleated Red Blood Cells Absolute Auto 0.000 K/mm3 (0.0-0.012); Nucleated Red Blood Cells Perc 0.0 % (0.0-0.2); Platelet Count Result 257 k/mm3 (150-375); Red Blood Count 4.42 M/mm3 (4.2-5.4); White Blood Count 4.5 K/mm3 (4.5-10.0)
--- OUTSIDE RECORDS SUMMARY | 2025-04-19 11:31 | XMS_ITS | Patient Health Record ---
Author Organization [facility] Address [address] [place], [place] [id number] Care Team Providers Care Track Grinder Operator Name Role Phone JOSIAH LEACH Unavailable [phone] James Agudelo Unavailable Unavailable Allergies Allergen (clinical drug ingredient) Drug/Non Drug Allergy documented on EMR Reaction Allergy Type Onset Date Status codeine Codeine Unknown Drug Allergy Active Gold and/or gold compound (FN) Gold-containing Drug Products Unknown Drug Allergy Active Reason For Referral No Information Medications Medication SIG (Take, Route, Frequency, Duration) Notes Start Date End Date Status dilTIAZem HCl 60 MG Tablet Oral; Duration: 90 Days Active Fenofibrate 54 MG Tablet Oral; Duration: 90 Days Active HYDROcodone-Acetaminophen 5-325 MG Tablet 1 tablet as needed Orally every 4-6 hrs As needed for pain. 07/12/2024 Active Atorvastatin Calcium 10 MG Tablet Oral; Duration: 90 Days Acti ve LORazepam 0.5 MG Tablet 1 TABLET BY MOUT H 1 HR PRIOR TO TEST, MAY REPEAT AT TIME OF TEST IF NEEDED Oral; Duration: 1 Days Active Droplet Pen [place] 31G X 8 MM Miscellaneous ; Duration: 90 Days Acti ve Anastrozole 1 MG Tablet Oral; Duration: 90 Days Active NovoLOG FlexPen 100 UNIT/ML Solution Pen-injector Subcutaneous; Duration: 90 Days Active Levemir FlexPen 100 UNIT/ML Solution Pen-injector Subcutaneous; Duration: 90 Days Active Losartan Potassium 25 MG Tablet Oral; Duration: 90 Days Acti ve metFORMIN HCl ER 500 MG Tablet Extended Release 24 Hour Oral; Duration: 90 Days Acti ve Social History Social History Additional Details Category Social Info Options Details Migrated Social History Migrated Social History Alcohol intake : , History of tobacco use : , Smoking Status : Never smoked Vital Signs Height-cm 170.18 cm 07/19/2024 Weight-kg 89.81 kg 07/19/2024 Height 67.00 in 07/19/2024 Weight 198 lbs 07/19/2024 BMI 31.01 kg/m2 07/19/2024 Encounters Encounter Location Date Provider Diagnosis [address] [id number] 07/13/2024 JOSIAH SNOOK [facility] [place] [address] [place], [place] [id number] 05/21/2024 JOSIAH SNOOK Pain due to internal orthopedic prosthetic devices, implants and grafts, initial encounter T84.84XA and Left foot pain M79.672 [facility] [address] [place], [place] [id number] 07/19/2024 JOSIAH SNOOK Pain due to internal orthopedic prosthetic devices, implants and grafts, subsequent encounter T84.84XD ; Left foot pain M79.672 and Encounter for other specified surgical aftercare Z48.89 [facility] [address] [place], [place] [id number] 08/02/2024 JOSIAH SNOOK Pain due to internal orthopedic prosthetic devices, implants and grafts, subsequent encounter T84.84XD and Encounter for other specified surgical aftercare Z48.89 [facility] [address] [place], [place] [id number] 06/05/2024 JOSIAH SNOOK [facility] [address] [place], [place] [id number] 07/12/2024 JOSIAH SNOOK Assessments Encounter Date Diagnosis [...] aftercare (ICD-10 - Z48.89) Plan Of Treatment No Information Insurance Providers Payer Name Payer Address Payer Phone Subscriber Number Group Number Insured Name Patient Relationship to Insured Coverage Start Date Coverage End Date [address] [address] [id number] DEBBY MEJIAS Self - patient is the insured Medicare Part B [facility] [address] [place] [address] [id number] DEBBY MEJIAS Self - patient is the insured Medical (General) History Medical History History ICD Code Cancer (type of cancer) Leg/Feet cramps Sleep apnea Diabetic
--- OUTSIDE RECORDS SUMMARY | 2025-04-19 11:31 | XMS_ITS | Clinical Summary ---
Author Organization [facility] Address [address] [place] [address] Care Team Providers Care Business Technology Analyst Name Role Phone James Agudelo MD Primary Care Provider [phone] Source Comments [facility],non-owned Affiliates and Associated Physician Practices is amultiple site organization consisting of ambulatory clinics and hospital sitesin [place], [place], [place] and [place]. This disclosure is being madepursuant to the Care Everywhere program and may not contain all information available regarding this patient. Last updated 18.[facility] Medications * Be aware that medications may [...] on file Legal Sex Female 5:25 PM STAMPING DIE TRY OUT WORKER Gender Identity Not on file Sexual Orientation [...] patient's age to complete this topic Insurance [facility] Member Subscriber Plan / Payer (Ef fective 2018-Present) Name:Debby Mejias Relation to Subscriber:Self Name:MEJIASDEBBY Payer ID:[id number] (NAIC) Type:HMO Address: [place] [id number] [place] [id number] Care Teams Business Technology Analyst Relationship Specialty Start Date End Date James Agudelo MD [address] [place] [address] PCP - General 03/12/15
--- OUTSIDE RECORDS SUMMARY | 2025-04-19 11:31 | XMS_ITS | Clinical Summary ---
Author Organization [facility] Address [address] [facility] [place] [address] Care Team Providers Care Gyroscope Technician Name Role Phone James Agudelo MD Primary Care Provider [phone] Allergies No known active allergies Medications liraglutide [...] James Agudelo MD [address] [address] Other: Problem Noted Date Diagnosed Date History [...] st Contact Info) Description 04/25/2025 3:45 PM SAND MILL OPERATOR Office Visit [facility] Oncology and Hematology - [place] [address] [facility] [address] [place] [address] Bhargav Garza MD [address] [facility] [address] [place] [address] Health Maintenance Due Date Last [...] Diabetes Screening 04/28/2024 04/28/2021, 02/21/2020 [place] Preventative Visit/Annual Wellness Visit 06/20/2024 BREAST CANCER [...] 2: Benign findings. DICTATION LOCATION: [facility] 08/30/2023 3:11 PM CDT EXAM: BILATERAL DIGITAL [...] BI-RADS CATEGORY 2: Benign findings. DICTATION LOCATION: [facility] Marixa Rosario MD MAMMO ORDERABLES Final R esult * HEMOGLOBIN A1C (04/28/2021) Blood Abstract Provider CHEMISTRY ORDERABLES Final Res ult from Last 3 Months or Most Recently Relevant to Health Maintenance Insurance [facility] PPO MCR Care Teams Gyroscope Technician Relationship Specialty Start Date End Date James Agudelo MD [address] [facility] [address] [place] [address] PCP - General Family Practice 10/26/17
--- OUTSIDE RECORDS SUMMARY | 2025-04-19 11:31 | XMS_ITS | Clinical Summary ---
Author Organization [facility] Address [address] [place] [address] Care Team Providers Care Farm Owner Operator Name Role Phone James Agudelo MD Primary Care Provider [phone] Allergies Active Allergy Reactions Criticality Noted Date [...] Sex Assigned at Female 07/13/2024 8:30 AM LABORER DRYING DEPARTMENT Legal Sex Female 7:25 PM CDT Gender Identity Not on file Sexual Orientation Not on file Last Filed Vital Signs Vital Sign Reading Time Taken Comments Blood Pressure 159/51 07/13/2024 1:20 PM LABORER DRYING DEPARTMENT Pulse 61 07/13/2024 1:20 PM LABORER DRYING DEPARTMENT Temperature 36.5 C (97.7 F) 07/13/2024 1:20 PM LABORER DRYING DEPARTMENT Respiratory Rate 18 07/13/2024 1:20 PM LABORER DRYING DEPARTMENT Oxygen Saturation 100% 07/13/2024 1:20 PM LABORER DRYING DEPARTMENT Inhaled Oxygen Concentration - - Weight 82.8 kg (182 lb 8.7 oz) 07/13/2024 9:00 A M LABORER DRYING DEPARTMENT Height 167.6 cm (5' 6) 07/13/2024 9:00 AM LABORER DRYING DEPARTMENT Body Mass Index 29.46 07/13/2024 9:00 AM LABORER DRYING DEPARTMENT Plan of Treatment Health Maintenance Due Date Last Done Comments Colorectal Cancer Screening Colonoscopy (10 Years) 1960 Hepatitis C 01/18/1976 DTaP, Tdap and Td Vaccines (1 - Tdap) 1977 Pneumococcal Vaccine: 50+ Years (1 of 1 - PCV) 01/18/2008 Zoster Vaccines (1 of 2) 01/18/2008 Annual Medicare Wellness Visit 2023 Dexa Scan (General) 2023 COVID-19 Vaccine ( season) 2025 07/01/2021, 09/11/2020, 08/21/2020 Influenza Adult (#1) 2025 05/08/2024, 06/03/2022, 02/26/2020, Additional history exists Mammogram Screening 08/29/2025 08/30/2023, 08/24/2022, 08/20/2021, Additional history exists RSV Immunization or 60+ Years Completed 05/30/2023 Hepatitis A Vaccines Aged Out No long er eligible based on patient's age to complete this topic Meningococcal B Vaccine Aged Out No l onger eligible based on patient's age to complete this topic Meningococcal Vaccine Aged Out No aileen hector eligible based on patient's age to complete this topic RSV Immunizations Under 20 Months Aged Out No longer eligible based on patient's age to complete this topic Medical Devices Explanted Type Area Receiving Associate Device Identifier Shelf Expiration Date Model / Serial / Lot K-Wire Explanted:Qty: 1 on 07/13/2024 by [facility] Wire Left: Foot Description:Removed intact. [place] [address] [place] [address] MEDICARE Care Teams Farm Owner Operator Relationship Specialty Start Date End Date James Agudelo MD [address] [place] [address] PCP - General FAMILY PRACTICE 07/04/24
--- OUTSIDE RECORDS SUMMARY | 2025-04-19 11:31 | XMS_ITS | Encounter Summary ---
Author Organization [facility] Address [address] [place] [address] Care Team Providers Care Supervisor Blood Donor Recruiters Name Role Phone James Agudelo MD Primary Care Provider [phone] Encounter Details Date Type Department Care Team (Late Contact Info) Description 01/18/2019 Chart Note [facility] Radiation Therapy [address] [place] [address] [place] [address] [place] [address] Social History Tobacco Use Types [...] Department Care Team (Late Contact Info) Description 04/25/2025 3:45 PM ROUNDHOUSE SUPERVISOR Office Visit [facility] Oncology and Hematology - [place] [address] [facility] [address] [place] [address] Bhargav Garza MD [address] [facility] [address] [place] [address] documented as of this encounter Visit Diagnoses Not on filedocumented in this encounter Care Teams Supervisor Blood Donor Recruiters Relationship Specialty Start Date End Date James Agudelo MD [address] [place] [address] PCP - General Family Practice 10/26/17 documented as of this encounter
[2025-04-19 12:30] LABS: Alanine Aminotransferase 28 U/L (6-35); Albumin Level 4.6 g/dL (3.5-5.1); Alkaline Phosphatase 59 U/L (38-126); Anion Gap 8 mmol/L (4-12); Aspartate Amino Transferase 47 U/L (14-36); Bilirubin,Total 0.6 mg/dL (0.2-1.3); Blood Urea Nitrogen 15 mg/dL (7-17); Calcium 9.5 mg/dL (8.4-10.2); Carbon Dioxide 25 mmol/L (22-30); Chloride 106 mmol/L (98-107); Estimated Glomerular Filt Rate 60; Glucose 154 mg/dL (65-110); Potassium 4.2 mmol/L (3.4-5.0); Sodium 139 mmol/L (137-145); Total Protein 7.4 g/dL (6.3-8.2)
== END 2025-04-19 11:17 | disposition home or self-care (01) ==
LOC: ANHLAB 11:17
PROVIDERS: PCP Family Medicine; Visit Provider Internal Medicine Hematology & Oncology
DX: C50.211 Malignant neoplasm of upper-inner quadrant of right female breast (principal); Z17.0 Estrogen receptor positive status [ER+]
CPT/HCPCS: 36415; 80053; 85025; 86300

== ENCOUNTER 2025-05-21 10:27 | Outpatient (CLI) | payer MEDICARE, SELFPAY ==
[2025-05-21 11:14] LABS: Free T4 Free Thyroxine 1.11 ng/dL (0.78-2.19)
--- OUTSIDE RECORDS SUMMARY | 2025-05-21 11:24 | XMS_ITS | Clinical Summary ---
Author Organization [facility] Address [address] [place] [address] Care Team Providers Care College Counselor Name Role Phone James Agudelo MD Primary Care Provider [phone] Allergies Active Allergy Reactions Criticality Noted Date [...] (50 mcg total) by mouth nightly. Active cephALEXin (KEFLEX) 500 MG capsule Take 1 capsule (500 mg total) by mouth 3 (three) times daily for 7 days. 21 capsule 05/04/2025 05/11/20 25 Encounters Date Type Department Care Team Description 05/04/2025 8:31 PM GEAR TOOTH LAPPING MACHINE OPERATOR - 05/04/2025 9:25 PM GEAR TOOTH LAPPING MACHINE OPERATOR Emergency [facility] Emergency Room [address] [place] [address] Silvio Alonzo MD Urinary Frequency Discharge Disposition: Home or Self Care (Routine Discharge) 05/04/2025 Travel from Last 3 Months Family History [...] Sex Assigned at Female 07/13/2024 8:30 AM GEAR TOOTH LAPPING MACHINE OPERATOR Legal Sex Female 7:25 PM CDT Gender Identity Not on file Sexual Orientation Not on file Last Filed Vital Signs Vital Sign Reading Time Taken Comments Blood Pressure 166/66 05/04/2025 9:24 PM GEAR TOOTH LAPPING MACHINE OPERATOR Pulse 88 05/04/2025 9:24 PM GEAR TOOTH LAPPING MACHINE OPERATOR Temperature 36.6 C (97.9 F) 05/04/2025 8:36 PM GEAR TOOTH LAPPING MACHINE OPERATOR Respiratory Rate 16 05/04/2025 9:24 PM GEAR TOOTH LAPPING MACHINE OPERATOR Oxygen Saturation 96% 05/04/2025 9:24 PM GEAR TOOTH LAPPING MACHINE OPERATOR Inhaled Oxygen Concentration - - Weight 81.6 kg (180 lb) 05/04/2025 8:36 PM GEAR TOOTH LAPPING MACHINE OPERATOR Height 167.6 cm (5' 6) 05/04/2025 8:36 PM GEAR TOOTH LAPPING MACHINE OPERATOR Body Mass Index 29.05 05/04/2025 8:36 PM GEAR TOOTH LAPPING MACHINE OPERATOR Plan of Treatment Health Maintenance Due Date Last Done Comments Colorectal Cancer Screening Colonoscopy (10 Years) 1960 Hepatitis C 01/18/1976 Zoster Vaccines (1 of 2) 01/18/2008 Pneumococcal Vaccine: 50+ Years (2 of 2 - PCV) 02/15/2013 02/16/2012 DTaP, Tdap and Td Vaccines (2 - Td or Tdap) 02/15/2022 02/16/2012 Annual Medicare Wellness Visit 2023 Dexa Scan [...] this topic Medical Devices Explanted Type Area Signal Tower Operator Device Identifier Shelf Expiration Date Model / Serial / Lot K-Wire Explanted:Qty: 1 on 07/13/2024 by Luis Alfredo Martinez DPM at [facility] [employer] Wire Left: Foot Description:Removed intact. Procedures Procedure Name Priority Date/Time Associated Diagnosis Comments URINE BACTERIA CULTURE STAT 05/04/2025 8:44 PM GEAR TOOTH LAPPING MACHINE OPERATOR URINALYSIS, AUTO, COMPLETE STAT 05/04/2025 8:44 PM GEAR TOOTH LAPPING MACHINE OPERATOR from Last 3 Months Results * (ABNORMAL) CULTURE URINE (05/04/2025 8:44 PM GEAR TOOTH LAPPING MACHINE OPERATOR) SPEC DESCRIPTION URINE CLEAN CATCH 05/04/2025 8:46 PM GEAR TOOTH LAPPING MACHINE OPERATOR [facility] SPECIAL REQUESTS NO SPECIAL REQUEST 05/04/2025 8:46 PM GEAR TOOTH LAPPING MACHINE OPERATOR [facility] CULTURE RESULT >100,000 COL/ML KLEBSIELLA (ENTEROBACTER ) AEROGENES (A) 05/07/2025 6:47 AM GEAR TOOTH LAPPING MACHINE OPERATOR [facility] URINE URINE SPECIMEN OBTAINED BY CLEAN CATCH PROCEDURE / Unknown 05/04/2025 8:44 PM GEAR TOOTH LAPPING MACHINE OPERATOR 05/04/2025 8:47 PM GEAR TOOTH LAPPING MACHINE OPERATOR Narrative Organism Antibiotic Method Susceptibility Klebsiella (enterobacter) aerogenes CEFTRIAXONE MONSTER (VITEK) <=1: Sensitive Klebsiella (enterobacter) aerogenes CEFTAZIDIME MONSTER (VITEK) <=1: Sensitive Klebsiella (enterobacter) aerogenes CEFAZOLIN MONSTER (VITEK) <=4: Resistant Klebsiella (enterobacter) aerogenes NITROFURANTOIN MONSTER (VITEK) 64: Intermediate Comment:INTERMEDIATE Klebsiella (enterobacter) aerogenes GENTAMICIN MONSTER (VITEK) <=1: Sensitive Klebsiella (enterobacter) aerogenes LEVOFLOXACIN MONSTER (VITEK) <=0.12: Sensitive Klebsiella (enterobacter) aerogenes PIPERACILLIN/TAZOBACTAM MONSTER (VITEK) <=4: Sensitive Klebsiella (enterobacter) aerogenes TRIMETH-SULFAMETH. MONSTER (VITEK) <=20: Sensitive Silvio Alonzo MD MICROBIOLOGY - GENERAL CLARIBEL MOTT Final Result Performing Organization Address City/State/[facility] Co de Phone Number [facility] [address] [place] [address], [place] [phone] [facility] [address] [place] [address], [place] [phone] * (ABNORMAL) Urinalysis, Auto, Complete (05/04/2025 8:44 PM GEAR TOOTH LAPPING MACHINE OPERATOR) COLOR (U) YELLOW 05/04/2025 9:01 PM [facility] TRANSPARENCY HAZY 05/04/2025 9:01 PM [facility] SPECIFIC GRAVITY (U) 1.010 1.000 - 1.030 05/04/2025 9:01 PM [facility] U PH 7.0 5.0 - 9.0 05/04/2025 9:01 PM [facility] LEUKOCYTES (U) 2+(A) NEGATIVE 05/04/2025 9:01 PM GEAR TOOTH LAPPING MACHINE OPERATOR [facility] NITRITES NEGATIVE NEGATIVE 05/04/2025 9:01 PM [facility] PROTEIN RANDOM (U) 2+(A) NEGATIVE 05/04/2025 9:01 PM [facility] GLUCOSE (U) NEGATIVE NEGATIVE 05/04/2025 9:01 PM [facility] KETONES MG/DL (U) NEGATIVE NEGATIVE 05/04/2025 9:01 PM [facility] BILIRUBIN (U) NEGATIVE NEGATIVE 05/04/2025 9:01 PM [facility] BLOOD (U) 3+(A) NEGATIVE 05/04/2025 9:01 PM [facility] WBC/HPF 10-25 0 - 5 /HPF 05/04/2025 9:01 PM [facility] RBC/HPF 25-50 0 - 5 /HPF 05/04/2025 9:01 PM [facility] EPI/HPF RARE /HPF 05/04/2025 9:01 PM [facility] BACTERIA (U) MODERATE /HPF 05/04/2025 9:01 PM [facility] URINE URINE SPECIMEN FROM URETHRA / Unknown 05/04/2025 8:44 PM GEAR TOOTH LAPPING MACHINE OPERATOR Silvio Alonzo MD URINE ORDERABLES Final Resu lt Performing Organization Address City/State/[facility] de Phone Number [facility] [address] [place] [address], [place] [phone] from Last 3 Months Insurance [facility] MEDICARE Care Teams College Counselor Relationship Specialty Start Date End Date James Agudelo MD [address] [place] [address] PCP - General FAMILY PRACTICE 07/04/24
--- OUTSIDE RECORDS SUMMARY | 2025-05-21 11:24 | XMS_ITS | Encounter Summary ---
Author Organization [facility] Address [address] [place] [address] Care Team Providers Care Fire Control Assistant Name Role Phone James Agudelo MD Primary Care Provider [phone] Encounter Details Date Type Department Care Team (Late Contact Info) Description 01/18/2019 Chart Note [facility] Radiation Therapy [address] [place] [address] [place] [address] [place] [address] Social History Tobacco Use Types [...] Department Care Team (Late Contact Info) Description 10/21/2025 1:15 PM CDT Office Visit [facility] Oncology and Hematology - [place] [address] [facility] [address] [place] [address] Bhargav Garza MD [address] [facility] [address] [place] [address] documented as of this encounter Visit Diagnoses Not on filedocumented in this encounter Care Teams Fire Control Assistant Relationship Specialty Start Date End Date James Agudelo MD [address] [facility] [address] [place] [address] PCP - General Family Practice 10/26/17 documented as of this encounter
--- OUTSIDE RECORDS SUMMARY | 2025-05-21 11:24 | XMS_ITS | Clinical Summary ---
Author Organization [facility] Address [address] [facility] [place] [address] Care Team Providers Care Bottle Hop Name Role Phone James Agudelo MD Primary Care Provider [phone] Allergies No known active allergies Medications liraglutide (VICTOZA) 0.6 mg/0.1 mL (18 mg/3 mL) Inject by subcutaneous injection daily. Active losartan (COZAAR) 50 mg tablet TAKE 1 TABLET BY MOUTH EVERY DAY 3 Active atorvastatin (LIPITOR) 10 mg tablet Take 10 mg by mouth daily with supper. Active ETELVINA PEN NEEDLE 32 gauge x 5/32 Needle INJECT TWICE DAILY Active FREESTYLE ANNA 14 DAY READER Misc [...] INJECT 0.5 MG (0.4 ML) SUBCUTANEOUSLY WEEKLY 03/01/2 023 Active insulin detemir (LEVEMIR U-100 INSULIN SUBCUT) Inject 24 Units by subcutaneous injection 2 times daily. Active metFORMIN (GLUCOPHAGE XR) 500 mg Extended Release 24 hour tablet Active methIMAzole (TAPAZOLE) 5 mg tablet 024 Active anastrozole (Arimidex) 1 mg tabletIndications: Malignant neoplasm of upper-inner quadrant of right breast in female, estrogen receptor positive (CMS/HCC) Take 1 Tablet (1 mg) by mouth daily. 90 Tablet 2 025 Active anastrozole (Arimidex) 1 mg tabletIndications: Malignant neoplasm of upper-inner quadrant of right breast in female, estrogen receptor positive (CMS/HCC) Take 1 Tablet (1 mg) by mouth daily. 90 Tablet 2 025 04/25 Discontinued( Reorder) anastrozole (Arimidex) 1 mg tabletIndications: Malignant neoplasm of upper-inner quadrant of right breast in female, estrogen receptor positive (CMS/HCC) Take 1 Tablet (1 mg) by mouth daily. 90 Tablet 2 025 04/25 Discontinued Active Problems Patient Care Coordination No te Formatting of this note migh t be different from the original. Primary Care: James Agudelo MD Referring Provider: James Agudelo MD [address] [facility] [address] [address] Other: Problem Noted Date Diagnosed Date History [...] Encounters Date Type Department Care Team Description 05/07/2025 External Device Data STL ABSTRACTION Provider, Abstract 04/25/2025 3:45 PM JUICE PACKAGING MACHINES SETTER Office Visit [facility] Oncology and Hematology [facility] [address] [place] [address] Bhargav Garza MD Malignant neoplasm of upper-inner quadrant of right breast in female, estrogen receptor positive (CMS/HCC) (Primary Dx) 04/23/2025 Orders Only [facility] Oncology and [facility] [address] [place] [address] Bhargav Garza MD 03/05/2025 External Device Data STL ABSTRACTION Provider, [...] Sign Reading Time Taken Comments Blood Pressure 151/76 04/25/2025 3:22 PM JUICE PACKAGING MACHINES SETTER Pulse 78 04/25/2025 3:19 PM JUICE PACKAGING MACHINES SETTER Temperature 36.6 C (97.9 F) 04/25/2025 3:19 PM JUICE PACKAGING MACHINES SETTER Respiratory Rate 15 04/25/2025 3:19 PM JUICE PACKAGING MACHINES SETTER Oxygen Saturation 98% 04/25/2025 3:19 PM JUICE PACKAGING MACHINES SETTER Inhaled Oxygen Concentration - - Weight 82.3 kg (181 lb 6.4 oz) 04/25/2025 3:19 P M JUICE PACKAGING MACHINES SETTER Height 170.2 cm (5' 7) 08/30/2023 1:02 PM CDT Body Mass Index 28.41 08/30/2023 1:02 PM CDT Plan of Treatment Upcoming Encounters Date Type Department Care Team (Late st Contact Info) Description 10/21/2025 1:15 PM CDT Office Visit [facility] Oncology and Hematology [facility] [address] [facility] [address] [place] [address] Bhargav Garza MD [address] [facility] [address] [place] [address] Health Maintenance Due Date Last [...] Procedure Name Priority Date/Time Associated Diagnosis Comments CHG CA 15 3 Routine 04/19/2025 12:50 PM CDT COMPREHENSIVE METABOLIC PANEL Routine 04/19/2025 12:43 PM CDT MAMMO 3D LUCIE DIAGNOSTIC BILAT W OR WO CAD Routine 08/30/2023 12:45 PM CDT Malignant neoplasm of upper-inner quadrant of right breast in female, estrogen receptor positive (CMS/HCC) Fibrocystic breast changes of both breasts HEMOGLOBIN A1C Routine 04/28/2021 from Last 3 Months or Most Recently Relevant to Health Maintenance Results * CHG CA 15 3 (04/19/2025 12:50 PM CDT) us Bhargav Garza MD [facility] - LABORATORY Final Result * COMPREHENSIVE METABOLIC PANEL (04/19/2025 12:43 PM CDT) Blood us Bhargav Garza MD [...] Most Recently Relevant to Health Maintenance Insurance [facility] Care Teams Bottle Hop Relationship Specialty Start Date End Date James Agudelo MD [address] [facility] [address] [facility] [address] [place] [address] PCP - General Family Practice 10/26/17
[2025-05-21 11:27] LABS: Thyroid Stimulating Hormone 1.410 uIU/mL (0.465-4.680)
== END 2025-05-21 10:28 | disposition home or self-care (01) ==
LOC: ANHLAB 10:28
PROVIDERS: PCP Family Medicine; Visit Provider Internal Medicine
DX: E05.90 Thyrotoxicosis, unspecified without thyrotoxic crisis or storm (principal); E11.65 Type 2 diabetes mellitus with hyperglycemia; E78.5 Hyperlipidemia, unspecified; E66.9 Obesity, unspecified; R94.6 Abnormal results of thyroid function studies; Z71.3 Dietary counseling and surveillance
CPT/HCPCS: 36415; 84439; 84443